=== PATIENT | female | born 1970 | race American Indian/Alaskan Native ===

== ENCOUNTER 2020-08-10 11:09 | Emergency (ER) | payer OTHER ==
[2020-08-10 11:16] VITALS: BP 118/83
--- NOTE | 2020-08-10 11:37 | Event Note ---
ED Screening Note ED Screening Note: states she has been having cough with mucus production states she began having lightheaded states she has right sided chest discomfort with coughing +diarrhea +subjective fever +chills no SOB no rhinorrhea no sore throat no ear pain no vomiting no diarrhea no sick contact no recent travel PMHx pre htn no allergies to meds non smoker LNMP: a few days ago This initial assessment/diagnostic orders/clinical plan/treatment(s) is/are subject to change based on patients health status, clinical progression and re- assessment by fellow clinical providers in the ED. Further treatment and workup at subsequent clinical providers discretion. Patient/guardian urged not to elope from the ED as their condition may be serious if not clinically assessed and managed. Initial orders include: labs, CXR
--- NOTE | 2020-08-10 11:42 | Emergency Department Report ---
- General Chief Complaint: Dizziness Stated Complaint: LIGHT HEADED Time Seen by Provider: 08/10/20 11:35 Source: patient Mode of arrival: Ambulatory Limitations: No Limitations - History of Present Illness Initial Comments: Patient is a 50-year-old female presents emergency room with complaints of cough with mucus production for 3 days. She has associate lightheaded, right sided chest discomfort only with coughing otherwise no chest pain, diarrhea, subjective fever, chills. She denies any shortness of breath, rhinorrhea, sore throat, ear pain, vomiting, diarrhea, pleuritic chest pain, exertional chest pain, dizziness, sensation of room spinning, near syncope, leg swelling. She denies any known sick contacts or recent travel.PMHx HTN, CHF she reports that her doctor took her off all of her medications since she has not been having any issues. no allergies to meds. non smoker. LNMP: a few days ago - Related Data Previous Rx's Medication Instructions Recorded Last Taken Type Furosemide [Lasix] 40 mg PO DAILY #30 tablet 07/10/13 Unknown Rx carvediloL [Coreg] 6.25 mg PO BID #60 tablet 07/10/13 Unknown Rx lisinopriL [Zestril TAB] 2.5 mg PO QDAY #30 tablet 07/10/13 Unknown Rx Acetaminophen/Codeine 1 tab PO Q6H PRN #10 tab 05/31/14 Unknown Rx [Acetaminophen-Codeine #3 TAB] Cyclobenzaprine [Flexeril 10mg] 10 mg PO TID PRN #14 tablet 05/31/14 Unknown Rx Ibuprofen [Motrin] 600 mg PO Q8H PRN #30 tablet 05/31/14 Unknown Rx Albuterol Sulfate [Proventil Hfa] 1 puff IH TID PRN #1 hfa.aer.ad 08/10/20 U nknown Rx Azithromycin [Zithromax TAB] 250 mg PO QDAY 5 Days #6 tablet 08/10/20 Unknown Rx Prednisone [predniSONE 10 mg 10 mg PO .TAPER #1 tab.ds.pk 08/10/20 Unknown Rx (6-Day Pack, 21 Tabs)] guaiFENesin ER [Mucinex ER] 600 mg PO Q12H #14 tablet.er 08/10/20 Unknown Rx Allergies Allergy/AdvReac Type Severity Reaction Status Date / Time No Known Allergies Allergy Verified 08/10/20 11:13 ED Review of Systems ROS: Stated complaint: LIGHT HEADED Other details as noted in HPI Comment: All other systems reviewed and negative ED Past Medical Hx - Past Medical History Hx Hypertension: Yes Hx Congestive Heart Failure: No Hx Diabetes: No Hx Asthma: No Hx COPD: No - Surgical History Past Surgical History?: No - Social History Smoking Status: Never Smoker Substance Use Type: None - Medications Home Medications: Home Medications Medication Instructions Recorded Confirmed Last Taken Type Furosemide [Lasix] 40 mg PO DAILY #30 tablet 07/10/13 Unknown Rx carvediloL [Coreg] 6.25 mg PO BID #60 tablet 07/10/13 Unknown Rx lisinopriL [Zestril TAB] 2.5 mg PO QDAY #30 tablet 07/10/13 Unknown Rx Acetaminophen/Codeine 1 tab PO Q6H PRN #10 tab 05/31/14 Unknown Rx [Acetaminophen-Codeine #3 TAB] Cyclobenzaprine [Flexeril 10mg] 10 mg PO TID PRN #14 tablet 05/31/14 Unknown Rx Ibuprofen [Motrin] 600 mg PO Q8H PRN #30 tablet 05/31/14 Unknown Rx Albuterol Sulfate [Proventil Hfa] 1 puff IH TID PRN #1 hfa.aer.ad 08/10/20 Unknown Rx Azithromycin [Zithromax TAB] 250 mg PO QDAY 5 Days #6 tablet 08/10/20 Unknown Rx Prednisone [predniSONE 10 mg 10 mg PO .TAPER #1 tab.ds.pk 08/10/20 Unknown Rx (6-Day Pack, 21 Tabs)] guaiFENesin ER [Mucinex ER] 600 mg PO Q12H #14 tablet.er 08/10/20 Unknown Rx ED Physical Exam - General Limitations: No Limitations General appearance: alert, in no apparent distress - Head Head exam: Present: atraumatic, normocephalic - Eye Eye exam: Present: normal appearance - ENT ENT exam: Present: mucous membranes moist - Respiratory Respiratory exam: Present: normal lung sounds bilaterally. Absent: respiratory distress, wheezes, rales, rhonchi, stridor, chest wall tenderness, accessory muscle use, decreased breath sounds, prolonged expiratory - Cardiovascular Cardiovascular Exam: Present: regular rate, normal rhythm, normal heart sounds. Absent: systolic murmur, diastolic murmur, rubs, gallop - Neurological Exam Neurological exam: Present: alert, oriented X3 - Psychiatric Psychiatric exam: Present: normal affect, normal mood - Skin Skin exam: Present: warm, dry, intact ED Course Vital Signs 08/10/20 11:15 Temperature 98.8 F Pulse Rate 91 H Respiratory 20 Rate Blood Pressure 118/83 O2 Sat by Pulse 94 Oximetry ED Medical Decision Making - Lab Data Result diagrams: 08/10/20 11:41 08/10/20 11:41 Lab Results 08/10/20 08/10/20 08/10/20 Range/Units 11:41 11:41 11:41 WBC 5.0 (4.5-11.0) K/mm3 RBC 4.93 (3.65-5.03) M/mm3 Hgb 13.3 (10.1-14.3) gm/dl Hct 40.6 (30.3-42.9) % MCV 82 (79-97) fl MCH 27 L (28-32) pg MCHC 33 (30-34) % RDW 19.6 H (13.2-15.2) % Plt Count 292 (140-440) K/mm3 Lymph % (Auto) 26.0 (13.4-35.0) % [place] % (Auto) 6.5 (0.0-7.3) % Eos % (Auto) 0.3 (0.0-4.3) % Baso % (Auto) 0.5 (0.0-1.8) % Lymph # (Auto) 1.3 (1.2-5.4) K/mm3 [place] # (Auto) 0.3 (0.0-0.8) K/mm3 Eos # (Auto) 0.0 (0.0-0.4) K/mm3 Baso # (Auto) 0.0 (0.0-0.1) K/mm3 Seg Neutrophils % 66.7 (40.0-70.0) % Seg Neutrophils # 3.4 (1.8-7.7) K/mm3 Sodium 137 (137-145) mmol/L Potassium 4.2 (3.6-5.0) mmol/L Chloride 102.1 (98-107) mmol/L Carbon Dioxide 21 L (22-30) mmol/L Anion Gap 18 mmol/L BUN 11 (7-17) mg/dL Creatinine 0.5 L (0.6-1.2) mg/dL Estimated GFR > 60 ml/min BUN/Creatinine Ratio 22 % Glucose 87 (65-100) mg/dL Calcium 7.9 L (8.4-10.2) mg/dL Total Bilirubin 0.60 (0.1-1.2) mg/dL AST 32 (5-40) units/L ALT 16 (7-56) units/L Alkaline Phosphatase 41 (35-129) units/L Total Protein 6.8 (6.3-8.2) g/dL Albumin 3.1 L (3.9-5) g/dL Albumin/Globulin Ratio 0.8 % HCG, Qual Negative (Negative) Urine Color (Yellow) Urine Turbidity (Clear) Urine pH (5.0-7.0) Ur Specific [place] (1.003-1.030) Urine Protein (Negative) mg/dL Urine Glucose (UA) (Negative) mg/dL Urine Ketones (Negative) mg/dL Urine Blood (Negative) Urine Nitrite (Negative) Urine Bilirubin (Negative) Urine Urobilinogen (<2.0) mg/dL Ur Leukocyte Esterase (Negative) Urine WBC (Auto) (0.0-6.0) /HPF Urine RBC (Auto) (0.0-6.0) /HPF U Epithel Cells (Auto) (0-13.0) /HPF Urine Bacteria (Auto) (Negative) /HPF Urine Mucus /HPF 08/10/20 Range/Units 11:56 WBC (4.5-11.0) K/mm3 RBC (3.65-5.03) M/mm3 Hgb (10.1-14.3) gm/dl Hct (30.3-42.9) % MCV (79-97) fl MCH (28-32) pg MCHC (30-34) % RDW (13.2-15.2) % Plt Count (140-440) K/mm3 Lymph % (Auto) (13.4-35.0) % [place] % (Auto) (0.0-7.3) % Eos % (Auto) (0.0-4.3) % Baso % (Auto) (0.0-1.8) % Lymph # (Auto) (1.2-5.4) K/mm3 [place] # (Auto) (0.0-0.8) K/mm3 Eos # (Auto) (0.0-0.4) K/mm3 Baso # (Auto) (0.0-0.1) K/mm3 Seg Neutrophils % (40.0-70.0) % Seg Neutrophils # (1.8-7.7) K/mm3 Sodium (137-145) mmol/L Potassium (3.6-5.0) mmol/L Chloride (98-107) mmol/L Carbon Dioxide (22-30) mmol/L Anion Gap mmol/L BUN (7-17) mg/dL Creatinine (0.6-1.2) mg/dL Estimated GFR ml/min BUN/Creatinine Ratio % Glucose (65-100) mg/dL Calcium (8.4-10.2) mg/dL Total Bilirubin (0.1-1.2) mg/dL AST (5-40) units/L ALT (7-56) units/L Alkaline Phosphatase (35-129) units/L Total Protein (6.3-8.2) g/dL Albumin (3.9-5) g/dL Albumin/Globulin Ratio % HCG, Qual (Negative) Urine Color Yellow (Yellow) Urine Turbidity Slightly-cloudy (Clear) Urine pH 5.0 (5.0-7.0) Ur Specific [place] 1.023 (1.003-1.030) Urine Protein 100 mg/dl (Negative) mg/dL Urine Glucose (UA) Neg (Negative) mg/dL Urine Ketones Tr (Negative) mg/dL Urine Blood Mod (Negative) Urine Nitrite Neg (Negative) Urine Bilirubin Neg (Negative) Urine Urobilinogen < 2.0 (<2.0) mg/dL Ur Leukocyte Esterase Neg (Negative) Urine WBC (Auto) 5.0 (0.0-6.0) /HPF Urine RBC (Auto) < 1.0 (0.0-6.0) /HPF U Epithel Cells (Auto) 6.0 (0-13.0) /HPF Urine Bacteria (Auto) 1+ (Negative) /HPF Urine Mucus 1+ /HPF - Radiology Data Radiology results: report reviewed Ordering Physician: JOEL PACE Date of Service: 08/10/20 Procedure(s): XR chest routine 2V Accession Number(s): [id number] cc: JOEL PACE Fluoro Time In Minutes: CHEST 2 VIEWS INDICATION / CLINICAL INFORMATION: cough with mucus production. COMPARISON: None available. FINDINGS: SUPPORT DEVICES: None. HEART / MEDIASTINUM: Cardiomegaly LUNGS / PLEURA: Mild patchy bilateral airspace disease No pneumothorax. ADDITIONAL FINDINGS: No significant additional findings. IMPRESSION: Cardiomegaly with mild patchy bilateral airspace disease Signer Name: Simone Hernandez MD FACR Signed: 08/10/2020 12:31 PM Workstation Name: [id number] Transcribed By: MS Dictated By: Simone Hernandez MD Electronically Authenticated By: Simone Hernandez MD Signed Date/Time: 08/10/20 1231 DD/ 1228 TD/TT: - Medical Decision Making Patient is a 50-year-old female presents emergency room with complaints of cough with mucus production for 3 days. She has associate lightheaded, right sided chest discomfort only with coughing otherwise no chest pain, diarrhea, subjective fever, chills. She denies any shortness of breath, rhinorrhea, sore throat, ear pain, vomiting, diarrhea, pleuritic chest pain, exertional chest pain, dizziness, sensation of room spinning, near syncope, leg swelling. She denies any known sick contacts or recent travel.PMHx HTN, CHF she reports that her doctor took her off all of her medications since she has not been having any issues. no allergies to meds. non smoker. LNMP: a few days ago. Labs are stable. UA without evidence of UTI. Chest x-ray: Cardiomegaly with mild patchy bilateral airspace disease. Symptoms could be related to COVID-19 pneumonia. Patient ambulated in the emergency department for 2 minutes and maintained oxygen saturation of 93% or better on room air. Discussed case with Dr. Camarillo, ER attending who agrees with discharge home with strict return precautions. Ad vised patient Please use medication as prescribed. Please increase your fluid intake over the next several days. May take Tylenol as needed for fever or body aches. Follow-up with a primary care doctor for reexamination. Return to emergency room immediately for any new or worsening symptoms including but not limited to difficulty breathing, shortness of breath, severe chest pain, unable to tolerate by mouth intake, etc. Please self quarantine for 10 days from the onset of your symptoms. Please do not go out in public. If you are around others at home please wear a mask. If you need to cough or sneeze please do so in a napkin and immediately throw it away and immediately wash your hands. Wash your hands frequently. Wipe everything down. Recommend for you to get COVID-19 testing, may have this done at primary care doctor, health department, [facility], etc Critical care attestation.: If time is entered above; I have spent that time in minutes in the direct care of this critically ill patient, excluding procedure time. ED Disposition Clinical Impression: Opacities of both lungs present on chest x-ray, Suspected COVID-19 virus infection Disposition: TO HOME OR SELFCARE Is pt being admited?: No Does the pt Need Aspirin: No Condition: Stable Instructions: COVID-19, Community-Acquired Pneumonia, Adult Additional Instructions: Please use medication as prescribed. Please increase your fluid intake over the next several days. May take Tylenol as needed for fever or body aches. Follow-up with a primary care doctor for reexamination. Return to emergency room immediately for any new or worsening symptoms including but not limited to difficulty breathing, shortness of breath, severe chest pain, unable to tolerate by mouth intake, etc. Please self quarantine for 10 days from the onset of your symptoms. Please do not go out in public. If you are around others at home please wear a mask. If you need to cough or sneeze please do so in a napkin and immediately throw it away and immediately wash your hands. Wash your hands frequently. Wipe everything down. Recommend for you to get COVID-19 testing, may have this done at primary care doctor, health department, [facility], etc Prescriptions: guaiFENesin ER [Mucinex ER] 600 mg PO Q12H #14 tablet.er Prednisone [predniSONE 10 mg (6-Day Pack, 21 Tabs)] 10 mg PO .TAPER #1 tab.ds.pk Albuterol Sulfate [Proventil Hfa] 1 puff IH TID PRN #1 hfa.aer.ad PRN Reason: wheezing/shortness of breath Azithromycin [Zithromax TAB] 250 mg PO QDAY 5 Days #6 tablet Referrals: [facility] [Provider Group] - 2-3 Days ARISTIDES PEDERSEN MD [Staff Physician] - 2-3 Days Forms: Work/School Release Form(ED) Time of Disposition: 13:27 Print Language: ANGOLAN
[2020-08-10 12:03] LABS: Basophils % (Auto) 0.5 % (0.0-1.8); Eosinophils % (Auto) 0.3 % (0.0-4.3); Hematocrit 40.6 % (30.3-42.9); Hemoglobin 13.3 gm/dl (10.1-14.3); Lymphocytes # (Auto) 1.3 K/mm3 (1.2-5.4); Mean Corpuscular HGB Conc 33 % (30-34); Mean Corpuscular Volume 82 fl (79-97); Monocytes # (Auto) 0.3 K/mm3 (0.0-0.8); Monocytes % (Auto) 6.5 % (0.0-7.3); Platelet Count 292 K/mm3 (140-440); Red Blood Count 4.93 M/mm3 (3.65-5.03); Red Cell Distribution Width 19.6 % (13.2-15.2)
[2020-08-10 12:17] LABS: Alanine Aminotransferase 16 units/L (7-56); Albumin 3.1 g/dL (3.9-5); Blood Urea Nitrogen 11 mg/dL (7-17); Calcium 7.9 mg/dL (8.4-10.2); Hemolysis Index 11
[2020-08-10 12:18] LABS: BUN/Creatinine Ratio 22
[2020-08-10 12:53] LABS: Bacteria,Urine 1+ /HPF (Negative); Bilirubin,Urine NEG (Negative); Blood,Urine MOD (Negative); Color,Urine Yellow (Yellow); Mucus,Urine 1+ /HPF; RBC,Urine < 1.0 /HPF (0.0-6.0); Urobilinogen,Urine < 2.0 mg/dL (<2.0)
--- NOTE | 2020-08-10 13:11 | XRay Report ---
CHEST 2 VIEWS INDICATION / CLINICAL INFORMATION: cough with mucus production. COMPARISON: None available. FINDINGS: SUPPORT DEVICES: None. HEART / MEDIASTINUM: Cardiomegaly LUNGS / PLEURA: Mild patchy bilateral airspace disease No pneumothorax. ADDITIONAL FINDINGS: No significant additional findings. IMPRESSION: Cardiomegaly with mild patchy bilateral airspace disease Signer Name: Simone Hernandez MD FACR Signed: 08/10/2020 12:31 PM Workstation Name: [id number]
== END 2020-08-10 13:41 | disposition home or self-care (01) ==
LOC: ED 11:09
DX: R91.8 Other nonspecific abnormal finding of lung field (principal); I10 Essential (primary) hypertension; Z79.899 Other long term (current) drug therapy; Z20.822 Contact with and (suspected) exposure to COVID-19
CPT/HCPCS: 36415; 71046; 80053; 81001; 84703; 85025

== ENCOUNTER 2020-11-01 01:20 | Emergency (ER) | payer SELFPAY ==
[2020-11-01 02:29] VITALS: BP 136/91
--- NOTE | 2020-11-01 03:26 | Emergency Department Report ---
ED Upper Extremity Inj HPI - General Chief Complaint: Extremity Injury, Lower Stated Complaint: FINGER INJURY Time Seen by Provider: 11/01/20 03:12 Source: patient Mode of arrival: Ambulatory Limitations: No Limitations - History of Present Illness Complaint: Injury to:: left, finger -: Sudden Other Extremity Injury: Fingers: Left (Fifth digit accidentally slammed in a door resulting in crush injury to the finger) Handedness: right Place: home Improves With: none Context: crush Associated Symptoms: denies: weakness, numbness, suspects foreign body, nausea/vomiting, heard/felt popping sensat - Related Data Previous Rx's Medication Instructions Recorded Last Taken Type Furosemide [Lasix] 40 mg PO DAILY #30 tablet 07/10/13 Unknown Rx carvediloL [Coreg] 6.25 mg PO BID #60 tablet 07/10/13 Unknown Rx lisinopriL [Zestril TAB] 2.5 mg PO QDAY #30 tablet 07/10/13 Unknown Rx Acetaminophen/Codeine 1 tab PO Q6H PRN #10 tab 05/31/14 Unknown Rx [Acetaminophen-Codeine #3 TAB] Cyclobenzaprine [Flexeril 10mg] 10 mg PO TID PRN #14 tablet 05/31/14 Unknown Rx Ibuprofen [Motrin] 600 mg PO Q8H PRN #30 tablet 05/31/14 Unknown Rx Albuterol Sulfate [Proventil Hfa] 1 puff IH TID PRN #1 hfa.aer.ad 08/10/20 Unknown Rx Azithromycin [Zithromax TAB] 250 mg PO QDAY 5 Days #6 tablet 08/10/20 Unknown Rx Prednisone [predniSONE 10 mg 10 mg PO .TAPER #1 tab.ds.pk 08/10/20 Unknown Rx (6-Day Pack, 21 Tabs)] guaiFENesin ER [Mucinex ER] 600 mg PO Q12H #14 tablet.er 08/10/20 Unknown Rx Allergies Allergy/AdvReac Type Severity Reaction Status Date / Time No Known Allergies Allergy Verified 08/10/20 11:13 ED Review of Systems ROS: Stated complaint: FINGER INJURY Other details as noted in HPI Comment: All other systems reviewed and negative ED Past Medical Hx - Past Medical History Previous Medical History?: No Hx Hypertension: Yes Hx Congestive Heart Failure: No Hx Diabetes: No Hx Asthma: No Hx COPD: No - Surgical History Past Surgical History?: No - Social History Smoking Status: Never Smoker Substance Use Type: None - Medications Home Medications: Home Medications Medication Instructions Recorded Confirmed Last Taken Type Furosemide [Lasix] 40 mg PO DAILY #30 tablet 07/10/13 Unknown Rx carvediloL [Coreg] 6.25 mg PO BID #60 tablet 07/10/13 Unknown Rx lisinopriL [Zestril TAB] 2.5 mg PO QDAY #30 tablet 07/10/13 Unknown Rx Acetaminophen/Codeine 1 tab PO Q6H PRN #10 tab 05/31/14 Unknown Rx [Acetaminophen-Codeine #3 TAB] Cyclobenzaprine [Flexeril 10mg] 10 mg PO TID PRN #14 tablet 05/31/14 Unknown Rx Ibuprofen [Motrin] 600 mg PO Q8H PRN #30 tablet 05/31/14 Unknown Rx Albuterol Sulfate [Proventil Hfa] 1 puff IH TID PRN #1 hfa.aer.ad 08/10/20 Unknown Rx Azithromycin [Zithromax TAB] 250 mg PO QDAY 5 Days #6 tablet 08/10/20 Unknown Rx Prednisone [predniSONE 10 mg 10 mg PO .TAPER #1 tab.ds.pk 08/10/20 Unknown Rx (6-Day Pack, 21 Tabs)] guaiFENesin ER [Mucinex ER] 600 mg PO Q12H #14 tablet.er 08/10/20 Unknown Rx ED Physical Exam - General Limitations: No Limitations General appearance: alert, in no apparent distress - Head Head exam: Present: atraumatic, normocephalic - Eye Eye exam: Present: normal appearance - ENT ENT exam: Present: mucous membranes moist - Neck Neck exam: Present: normal inspection - Respiratory Respiratory exam: Present: normal lung sounds bilaterally. Absent: respiratory distress - Cardiovascular Cardiovascular Exam: Present: regular rate, normal rhythm. Absent: systolic murmur, diastolic murmur, rubs, gallop - GI/Abdominal GI/Abdominal exam: Present: soft, normal bowel sounds - Extremities Exam Extremities exam: Present: normal inspection - Back Exam Back exam: Present: normal inspection - Neurological Exam Neurological exam: Present: alert, oriented X3 - Psychiatric Psychiatric exam: Present: normal affect, normal mood - Skin Skin exam: Present: warm, dry, intact, normal color. Absent: rash ED Course Vital Signs 11/01/20 11/01/20 02:28 05:20 Temperature 98.5 F Pulse Rate 88 87 Respiratory 18 17 Rate Blood Pressure 136/91 O2 Sat by Pulse 96 99 Oximetry Critical care attestation.: If time is entered above; I have spent that time in minutes in the direct care of this critically ill patient, excluding procedure time. ED Disposition Clinical Impression: Contusion, finger Disposition: DC-01 TO HOME OR SELFCARE Is pt being admited?: No Does the pt Need Aspirin: No Condition: Stable Instructions: How to Use Cold Therapy, [id number], Contusion, How to Use Cold Therapy Additional Instructions: Please utilize Tylenol and Motrin as needed for your finger discomfort Referrals: [facility] [Provider Group] - 3-5 Days
--- NOTE | 2020-11-01 03:39 | XRay Report ---
XR finger(s) 2+V LT INDICATION / CLINICAL INFORMATION: crush injuy 5th phalange. COMPARISON: None available. FINDINGS: No acute fracture. Normal alignment. Joint spaces are preserved. No destructive osseous lesion or s uspicious periosteal reaction. Impression: 1.No acute fracture. Signer Name: Eugenio Ann MD Signed: 11/01/2020 3:34 AM Workstation Name: [id number]
== END 2020-11-01 05:20 | disposition home or self-care (01) ==
LOC: ED 01:20
DX: S60.052A Contusion of left little finger without damage to nail, initial encounter (principal); I10 Essential (primary) hypertension; Z79.899 Other long term (current) drug therapy; W23.0XXA Caught, crushed, jammed, or pinched between moving objects, initial encounter; Y93.89 Activity, other specified; Y92.89 Other specified places as the place of occurrence of the external cause; Y99.8 Other external cause status
CPT/HCPCS: 99283

== ENCOUNTER 2021-07-05 10:22 | Emergency (ER) | payer OTHER ==
[2021-07-05 10:40] VITALS: BP 133/102
--- NOTE | 2021-07-05 12:07 | Event Note ---
ED Screening Note Date of service: 07/05/21 Time: 12:06 ED Screening Note: Over a week history of worsening shortness of breath especially on exertion along with abdominal bloating and swelling. She states that she has a history of "enlarged heart" but was taken off diuretics. This initial assessment/diagnostic orders/clinical plan/treatment(s) is/are subject to change based on patients health status, clinical progression and re- assessment by fellow clinical providers in the ED. Further treatment and workup at subsequent clinical providers discretion. Patient/guardian urged not to elope from the ED as their condition may be serious if not clinically assessed and managed. Initial orders include:
[2021-07-05] MEDS ORDERED: FUROSEMIDE 20 MG TAB PO ONE (12:39)
--- NOTE | 2021-07-05 12:40 | Emergency Department Report ---
ED Shortness of Breath HPI - General Chief Complaint: Dyspnea/Respdistress Stated Complaint: ESAU Time Seen by Provider: 07/05/21 12:28 Source: patient Mode of arrival: Ambulatory Limitations: No Limitations - History of Present Illness Initial Comments: Patient presents with a 4-day history of worsening dyspnea as well as bloating and fluid retention. There is a long history of fluid retention and pulmonary edema. Patient was taken off of her diuretic. She does not know why. She was only on Lasix 10 mg a day. Regardless, patient was doing well up until the medicine had stopped. 4 days ago she started developing the symptoms. She has no chest pain. There is no vomiting or diarrhea. She states that she just feels bloated and feels like she is retaining fluid. The shortness of breath is associated with exertion as well as position. She describes orthopnea. - Related Data Previous Rx's Medication Instructions Recorded Last Taken Type Furosemide [Lasix] 40 mg PO DAILY #30 tablet 07/10/13 Unknown Rx carvediloL [Coreg] 6.25 mg PO BID #60 tablet 07/10/13 Unknown Rx lisinopriL [Zestril TAB] 2.5 mg PO QDAY #30 tablet 07/10/13 Unknown Rx Albuterol Sulfate [Proventil Hfa] 1 puff IH TID PRN #1 hfa.aer.ad 08/10/20 Unknown Rx Furosemide [Lasix] 20 mg PO QDAY #30 tablet 07/05/21 Unknown Rx Potassium Chloride [K-Dur] 20 meq PO QDAY #30 tab 07/05/21 Unknown Rx Allergies Allergy/AdvReac Type Severity Reaction Status Date / Time No Known Allergies Allergy Verified 08/10/20 11:13 ED Review of Systems ROS: Stated complaint: ESAU Other details as noted in HPI Comment: All other systems reviewed and negative Constitutional: denies: fever Eyes: denies: vision change ENT: denies: throat pain Respiratory: see HPI Cardiovascular: denies: chest pain Endocrine: unexplained weight gain. denies: unexplained weight loss Gastrointestinal: denies: abdominal pain Genitourinary: denies: dysuria Musculoskeletal: denies: back pain Skin: denies: rash Neurological: denies: headache Hematological/Lymphatic: denies: easy bruising ED Past Medical Hx - Past Medical History Previous Medical History?: Yes Hx Hypertension: Yes Hx Congestive Heart Failure: No Hx Diabetes: No Hx Asthma: No Hx COPD: No - Surgical History Past Surgical History?: No - Family History Family history: hypertension - Social History Smoking Status: Never Smoker Substance Use Type: None - Medications Home Medications: Home Medications Medication Instructions Recorded Confirmed Last Taken Type Furosemide [Lasix] 40 mg PO DAILY #30 tablet 07/10/13 Unknown Rx carvediloL [Coreg] 6.25 mg PO BID #60 tablet 07/10/13 Unknown Rx lisinopriL [Zestril TAB] 2.5 mg PO QDAY #30 tablet 07/10/13 Unknown Rx Albuterol Sulfate [Proventil Hfa] 1 puff IH TID PRN #1 hfa.aer.ad 08/10/20 Unknown Rx Furosemide [Lasix] 20 mg PO QDAY #30 tablet 07/05/21 Unknown Rx Potassium Chloride [K-Dur] 20 meq PO QDAY #30 tab 07/05/21 Unknown Rx ED Physical Exam - General Limitations: No Limitations, Other (Pulse ox noted and normal) General appearance: alert, in no apparent distress, obese - Head Head exam: Present: atraumatic, normocephalic - Eye Eye exam: Present: normal appearance, PERRL, EOMI. Absent: scleral icterus - ENT ENT exam: Present: normal orophraynx, normal external ear exam - Neck Neck exam: Present: normal inspection. Absent: meningismus - Respiratory Respiratory exam: Present: decreased breath sounds (Bilateral). Absent: r espiratory distress - Cardiovascular Cardiovascular Exam: Present: regular rate, normal rhythm. Absent: JVD - GI/Abdominal GI/Abdominal exam: Present: soft. Absent: distended, tenderness - Extremities Exam Extremities exam: Present: normal capillary refill, pedal edema (3+ bilateral). Absent: calf tenderness - Back Exam Back exam: Absent: CVA tenderness (R), CVA tenderness (L) - Neurological Exam Neurological exam: Present: alert, oriented X3, CN II-XII intact, normal gait. Absent: motor sensory deficit - Psychiatric Psychiatric exam: Present: normal affect, normal mood - Skin Skin exam: Present: warm, dry ED Course Vital Signs 07/05/21 10:36 Temperature 98.2 F Pulse Rate 95 H Respiratory 16 Rate Blood Pressure 133/102 [Left] O2 Sat by Pulse 100 Oximetry - Reevaluation(s) Reevaluation #1: 03/09/22 12:40 Meds ordered. Old records noted. Reevaluation #2: 07/05/21 14:56 Labs were noted and the patient was discharged ED Medical Decision Making - Lab Data Result diagrams: 07/05/21 12:19 07/05/21 12:19 - Medical Decision Making Patient presents secondary to volume overload. Why she was taken off of the diuretic is unclear. This was restarted. She does not have overt evidence of heart strain or STEMI or ACS. She is not having chest pain. There was no clinical evidence of pneumonia. There is no cough or fever. Patient can be diuresed at home. She does not require admission. She is not hypoxic. Critical Care Time: No Critical care attestation.: If time is entered above; I have spent that time in minutes in the direct care of this critically ill patient, excluding procedure time. ED Disposition Clinical Impression: Anasarca Disposition: 01 HOME / SELF CARE / HOMELESS Is pt being admited?: No Condition: Stable Instructions: Heart Failure, Diagnosis, [id number] Additional Instructions: Elevate the feet. Do not eat salt. Follow-up with your regular doctor or referral doctor for recheck. Return for problems or concerns. Prescriptions: Potassium Chloride [K-Dur] 20 meq PO QDAY #30 tab Furosemide [Lasix] 20 mg PO QDAY #30 tablet Referrals: MAZIN SCHMIDT MD [Primary Care Provider] - 3-5 Days LANEY BRANTLEY MD [Staff Physician] - 3-5 Days
--- NOTE | 2021-07-05 12:40 | XRay Report ---
CHEST 2 VIEWS INDICATION / CLINICAL INFORMATION: chest pain. COMPARISON: 08/10/2020 FINDINGS: SUPPORT DEVICES: None. HEART / MEDIASTINUM: There is mild cardiomegaly. This is similar to the prior exam. LUNGS / PLEURA: No significant pulmonary or pleural abnormality. No pneumothorax. ADDITIONAL FINDINGS: No significant additional findings. IMPRESSION: 1. No acute findings. Stable mild cardiomegaly. Signer Name: Judah Arvizu MD Signed: 07/05/2021 12:35 PM Workstation Name: [email or web address]
[2021-07-05 12:41] LABS: Hematocrit 39.7 % (30.3-42.9); Hemoglobin 12.5 gm/dl (10.1-14.3); Mean Corpuscular HGB Conc 31 % (30-34); Mean Corpuscular Volume 86 fl (79-97); Platelet Count 363 K/mm3 (140-440); Red Blood Count 4.63 M/mm3 (3.65-5.03); Red Cell Distribution Width 18.6 % (13.2-15.2)
[2021-07-05 13:09] LABS: Alanine Aminotransferase 33 units/L (7-56); Albumin 3.7 g/dL (3.9-5); Blood Urea Nitrogen 17 mg/dL (7-17); Calcium 9.1 mg/dL (8.4-10.2); Hemolysis Index 9
[2021-07-05 13:11] LABS: BUN/Creatinine Ratio 34
--- NOTE | 2021-07-07 09:11 | Electrocardiograph Report ---
[facility] Test Date: 2021-07-05 Test Time: 12:14:36 Pat Name: NSEHA KILLIAN Department: Room: Gender: F Pulp Mixer: FATOU : 1970 Requested By: MARCELO DONOVNA Order Number: [id number] Reading MD: Juaquin Rubio Measurements Intervals [place] Rate: 96 P: 46 CA: 167 QRS: 67 QRSD: 97 T: 38 QT: 388 QTc: 483 Interpretive Statements Sinus rhythm Ventricular premature complex Left atrial enlargement nonspecific st-t No previous ECG available for comparison Electronically Signed On 07-07-2021 9:10:28 EST by Juaquin Rubio
== END 2021-07-05 15:28 | disposition home or self-care (01) ==
LOC: ED 10:22
DX: R60.1 Generalized edema (principal); I10 Essential (primary) hypertension; R06.02 Shortness of breath
CPT/HCPCS: 36415; 71046; 80053; 83880; 84484; 85027; 93005; 99284

== ENCOUNTER 2021-10-26 10:31 | Inpatient (IN) | payer OTHER ==
[2021-10-26] MEDS ORDERED: dilTIAZem 25 MG/5 ML INJ IV ONE ×2 (10:45→22:00)
[2021-10-26] MEDS ORDERED: dilTIAZem/D5W 100 MG/100 ML BAG IV SCH (11:00)
--- NOTE | 2021-10-26 11:41 | Emergency Department Report ---
ED Palpitations HPI - General Chief Complaint: Arrhythmia/Palpitations Stated Complaint: RAPID HEART RATE Time Seen by Provider: 10/26/21 10:48 Source: EMS Mode of arrival: Stretcher Limitations: No Limitations - History of Present Illness Initial Comments: Patient is a 51-year-old female with history of CHF sent from primary care office for evaluation of A. fib with RVR. She denies past history of arrhythmia. Denies shortness of breath or chest pain. - Related Data Previous Rx's Medication Instructions Recorded Last Taken Type Furosemide [Lasix] 40 mg PO DAILY #30 tablet 07/10/13 Unknown Rx carvediloL [Coreg] 6.25 mg PO BID #60 tablet 07/10/13 Unknown Rx lisinopriL [Zestril TAB] 2.5 mg PO QDAY #30 tablet 07/10/13 Unknown Rx Albuterol Sulfate [Proventil Hfa] 1 puff IH TID PRN #1 hfa.aer.ad 08/10/20 Unknown Rx Furosemide [Lasix] 20 mg PO QDAY #30 tablet 07/05/21 Unknown Rx Potassium Chloride [K-Dur] 20 meq PO QDAY #30 tab 07/05/21 Unknown Rx Allergies Allergy/AdvReac Type Severity Reaction Status Date / Time No Known Allergies Allergy Verified 10/26/21 10:54 ED Review of Systems ROS: Stated complaint: RAPID HEART RATE Other details as noted in HPI Constitutional: denies: chills, fever Respiratory: no symptoms reported Cardiovascular: edema. denies: chest pain, palpitations Gastrointestinal: denies: abdominal pain, nausea, diarrhea Musculoskeletal: denies: back pain, joint swelling, arthralgia Skin: denies: rash, lesions Neurological: denies: headache, weakness, paresthesias Psychiatric: denies: anxiety, depression ED Past Medical Hx - Past Medical History Hx Hypertension: Yes Hx Congestive Heart Failure: No Hx Diabetes: No Hx Asthma: No Hx COPD: No - Social History Smoking Status: Never Smoker Substance Use Type: None - Medications Home Medications: Home Medications Medication Instructions Recorded Confirmed Last Taken Type Furosemide [Lasix] 40 mg PO DAILY #30 tablet 14 10/27/21 Unknown Rx carvediloL [Coreg] 6.25 mg PO BID #60 tablet 07/10/13 Unknown Rx lisinopriL [Zestril TAB] 2.5 mg PO QDAY #30 tablet 07/10/13 Unknown Rx Albuterol Sulfate [Proventil Hfa] 1 puff IH TID PRN #1 hfa.aer.ad 08/10/20 Unknown Rx Furosemide [Lasix] 20 mg PO QDAY #30 tablet 07/05/21 Unknown Rx Potassium Chloride [K-Dur] 20 meq PO QDAY #30 tab 07/05/21 10/27/21 Unknown Rx ED Physical Exam - General Limitations: No Limitations General appearance: alert, in no apparent distress - Head Head exam: Present: atraumatic, normocephalic - Neck Neck exam: Present: normal inspection - Respiratory Respiratory exam: Present: normal lung sounds bilaterally. Absent: respiratory distress - Cardiovascular Cardiovascular Exam: Present: tachycardia, irregular rhythm - GI/Abdominal GI/Abdominal exam: Present: soft. Absent: distended, tenderness - Rectal Rectal exam: Present: deferred - Neurological Exam Neurological exam: Present: alert, oriented X3 - Psychiatric Psychiatric exam: Present: normal affect, normal mood - Skin Skin exam: Present: warm, dry, intact, normal color ED Course Vital Signs 10/26/21 10/26/21 10/26/21 10:34 10:39 10:46 Temperature 98.1 F Pulse Rate 127 H 181 H 169 H Respiratory 18 19 28 H Rate Blood Pressure 143/123 Blood Pressure 151/93 [Left] O2 Sat by Pulse 89 99 Oximetry 10/26/21 10/26/21 10/26/21 10:50 10:51 10:52 Temperature 98.0 F Pulse Rate 174 H 168 H 157 H Respiratory 23 Rate Blood Pressure 143/123 Blood Pressure 145/126 [Left] O2 Sat by Pulse 100 Oximetry 10/26/21 10/26/21 10/26/21 11:00 11:16 11:33 Temperature Pulse Rate 162 H 173 H 163 H Respiratory 23 18 Rate Blood Pressure 111/78 111/78 113/51 Blood Pressure [Left] O2 Sat by Pulse 100 100 Oximetry 10/26/21 10/26/21 10/26/21 15:13 16:20 16:30 Temperature Pulse Rate 153 H 136 H Respiratory 19 18 Rate Blood Pressure 105/90 105/90 Blood Pressure [Left] O2 Sat by Pulse 100 100 Oximetry 10/26/21 10/26/21 10/26/21 16:40 16:50 17:00 Temperature Pulse Rate 148 H 149 H 146 H Respiratory 27 H 25 H 15 Rate Blood Pressure 115/95 128/85 128/85 Blood Pressure [Left] O2 Sat by Pulse 100 100 100 Oximetry 10/26/21 10/26/21 10/26/21 17:10 17:20 17:30 Temperature Pulse Rate 153 H 158 H 160 H Respiratory 16 19 22 Rate Blood Pressure 149/121 149/121 149/121 Blood Pressure [Left] O2 Sat by Pulse 100 99 99 Oximetry 10/26/21 10/26/21 10/26/21 17:40 17:50 18:00 Temperature Pulse Rate 154 H 139 H 165 H Respiratory 28 H 15 16 Rate Blood Pressure 112/95 107/83 107/83 Blood Pressure [Left] O2 Sat by Pulse 100 99 100 Oximetry 10/26/21 10/26/21 10/26/21 18:10 18:20 18:30 Temperature Pulse Rate 156 H 159 H 144 H Respiratory 12 32 H 19 Rate Blood Pressure 126/105 118/59 118/59 Blood Pressure [Left] O2 Sat by Pulse 100 100 100 Oximetry 10/26/21 10/26/21 10/26/21 18:40 18:50 19:00 Temperature Pulse Rate 162 H 151 H 160 H Respiratory 17 21 18 Rate Blood Pressure 118/59 118/59 143/91 Blood Pressure [Left] O2 Sat by Pulse 100 100 100 Oximetry 10/26/21 10/26/21 10/26/21 19:10 19:12 19:20 Temperature Pulse Rate 167 H 147 H 156 H Respiratory 17 18 18 Rate Blood Pressure 106/77 106/77 Blood Pressure 106/77 [Left] O2 Sat by Pulse 99 100 Oximetry 10/26/21 10/26/21 10/26/21 19:30 19:40 19:50 Temperature Pulse Rate 164 H Respiratory 18 22 18 Rate Blood Pressure 106/77 131/103 83/60 Blood Pressure [Left] O2 Sat by Pulse 100 99 Oximetry 10/26/21 10/26/21 10/26/21 20:00 20:10 20:20 Temperature Pulse Rate 146 H 164 H Respiratory 21 24 18 Rate Blood Pressure 83/60 92/77 92/77 Blood Pressure [Left] O2 Sat by Pulse 99 100 100 Oximetry 10/26/21 10/26/21 10/26/21 20:30 20:36 20:40 Temperature Pulse Rate 153 H 143 H 140 H Respiratory 24 28 H 25 H Rate Blood Pressure 92/77 121/94 Blood Pressure 121/94 [Left] O2 Sat by Pulse 92 95 Oximetry 10/26/21 10/26/21 10/26/21 20:50 21:00 21:10 Temperature Pulse Rate 151 H 152 H 161 H Respiratory 22 16 24 Rate Blood Pressure 126/79 126/79 114/95 Blood Pressure [Left] O2 Sat by Pulse 100 95 100 Oximetry 10/26/21 10/26/21 10/26/21 21:20 21:30 21:40 Temperature Pulse Rate 142 H 133 H 159 H Respiratory 15 25 H 17 Rate Blood Pressure 99/64 99/64 99/64 Blood Pressure [Left] O2 Sat by Pulse 97 100 Oximetry 10/26/21 10/26/21 10/26/21 21:50 22:00 22:10 Temperature Pulse Rate 164 H 156 H Respiratory 26 H 28 H 26 H Rate Blood Pressure 99/64 115/98 102/79 Blood Pressure [Left] O2 Sat by Pulse 100 84 Oximetry 10/26/21 10/26/21 10/26/21 22:12 22:20 22:30 Temperature Pulse Rate 158 H 128 H 154 H Respiratory 20 26 H Rate Blood Pressure 102/79 111/87 111/87 Blood Pressure [Left] O2 Sat by Pulse 100 Oximetry 10/26/21 10/26/21 10/26/21 22:33 22:40 22:42 Temperature Pulse Rate 141 H 133 H 127 H Respiratory 22 25 H Rate Blood Pressure 111/87 103/83 Blood Pressure 103/83 [Left] O2 Sat by Pulse 95 Oximetry 10/26/21 10/26/21 10/26/21 22:50 23:00 23:10 Temperature Pulse Rate 131 H 137 H 117 H Respiratory 26 H 17 21 Rate Blood Pressure 103/83 111/87 111/87 Blood Pressure [Left] O2 Sat by Pulse 80 L Oximetry 10/26/21 10/26/21 10/26/21 23:20 23:30 23:31 Temperature Pulse Rate 133 H 103 H Respiratory 24 Rate Blood Pressure 111/87 103/83 Blood Pressure [Left] O2 Sat by Pulse 98 95 100 Oximetry 10/26/21 10/26/21 10/27/21 23:40 23:50 00:00 Temperature Pulse Rate 123 H 117 H 129 H Respiratory 11 L 24 38 H Rate Blood Pressure 103/83 42/19 Blood Pressure [Left] O2 Sat by Pulse 100 Oximetry 10/27/21 10/27/21 10/27/21 00:10 00:20 00:27 Temperature 98.2 F Pulse Rate 106 H 102 H 125 H Respiratory 11 L 14 20 Rate Blood Pressure 42/19 42/19 Blood Pressure 133/106 [Left] O2 Sat by Pulse 95 Oximetry 10/27/21 00:30 Temperature Pulse Rate 111 H Respiratory 16 Rate Blood Pressure 42/19 Blood Pressure [Left] O2 Sat by Pulse Oximetry ED Medical Decision Making - Lab Data Result diagrams: 10/27/21 04:33 10/27/21 04:33 - EKG Data -: EKG Interpreted by Me (Atrial fibrillation with RVR with rate of 178 bpm) - Medical Decision Making EKG shows A. fib with RVR. Patient given 10 mg of IV diltiazem with no response. Started on diltiazem infusion however tachycardia was still refractory. She was switched to amiodarone drip. Cardiology consulted. Will admit to ICU. Critical care attestation.: If time is entered above; I have spent that time in minutes in the direct care of this critically ill patient, excluding procedure time. ED Disposition Clinical Impression: Atrial fibrillation with RVR Disposition: ADMITTED INPATIENT Is pt being admited?: Yes Condition: Stable
[2021-10-26 11:52] LABS: Basophils # (Auto) 0.2 K/mm3 (0.0-0.1); Basophils % (Auto) 2.5 % (0.0-1.8); Eosinophils # (Auto) 0.1 K/mm3 (0.0-0.4); Hematocrit 40.9 % (30.3-42.9); Lymphocytes % (Auto) 25.6 % (13.4-35.0); Mean Corpuscular HGB Conc 32 % (30-34); Mean Corpuscular Volume 82 fl (79-97); Monocytes # (Auto) 0.7 K/mm3 (0.0-0.8); Monocytes % (Auto) 8.7 % (0.0-7.3); Platelet Count 260 K/mm3 (140-440); Red Blood Count 4.99 M/mm3 (3.65-5.03); Red Cell Distribution Width 19.4 % (13.2-15.2)
[2021-10-26 12:03] LABS: Alanine Aminotransferase 146 units/L (7-56); Albumin 3.9 g/dL (3.9-5); BUN/Creatinine Ratio 44; Blood Urea Nitrogen 40 mg/dL (7-17); Calcium 9.4 mg/dL (8.4-10.2); Hemolysis Index 20
[2021-10-26] MEDS ORDERED: AMIODARONE 150 MG/3 ML INJ IV ONE (13:36)
[2021-10-26] MEDS ORDERED: AMIODARONE 900 MG in DEXTROSE 5% IN WATER 482 ML IV SCH (14:00)
[2021-10-26] MEDS: AMIODARONE 360 MG in DEXTROSE 5% IN WATER 192.8 ML IV SCH (14:27)
--- NOTE | 2021-10-26 20:56 | History and Physical Report ---
History of Present Illness Date of examination: 10/26/21 Date of admission: 10/26/2021 Chief complaint: Palpitations since a.m. History of present illness: Patient is a 51-year-old female with history of CHF and hypertension sent from primary care office for evaluation of A. fib with RVR. She denies past history of arrhythmia. Denies shortness of breath or chest pain. Has been palpitations no diaphoresis. No exacerbating or relieving factors. No orthopnea. - Past Medical History --Hypertension: Yes -Past surgical history --none Family history Htn - Social History --Smoking Status: Never Smoker --Substance Use Type: None - Medications --Home Medications: Home Medications Medication Instructions Recorded Confirmed Last Taken Type Furosemide [Lasix] 40 mg PO DAILY #30 tablet 07/10/13 Unknown Rx carvediloL [Coreg] 6.25 mg PO BID #60 tablet 07/10/13 Unknown Rx lisinopriL [Zestril TAB] 2.5 mg PO QDAY #30 tablet 07/10/13 Unknown Rx Albuterol Sulfate [Proventil Hfa] 1 puff IH TID PRN #1 hfa.aer.ad 08/10/20 Unknown Rx Furosemide [Lasix] 20 mg PO QDAY #30 tablet 07/05/21 Unknown Rx Potassium Chloride [K-Dur] 20 meq PO QDAY #30 tab 07/05/21 Unknown Rx Review of Systems ROS: Stated complaint: RAPID HEART RATE Other details as noted in HPI Constitutional: denies: chills, fever Respiratory: no symptoms reported Cardiovascular: edema. denies: chest pain, palpitations Gastrointestinal: denies: abdominal pain, nausea, diarrhea Musculoskeletal: denies: back pain, joint swelling, arthralgia Skin: denies: rash, lesions Neurological: denies: headache, weakness, paresthesias Psychiatric: denies: anxiety, depression Medications and Allergies Allergies Allergy/AdvReac Type Severity Reaction Status Date / Time No Known Allergies Allergy Verified 10/26/21 10:54 Home Medications Medication Instructions Recorded Confirmed Last Taken Type Furosemide [Lasix] 40 mg PO DAILY #30 tablet 07/10/13 Unknown Rx carvediloL [Coreg] 6.25 mg PO BID #60 tablet 07/10/13 Unknown Rx lisinopriL [Zestril TAB] 2.5 mg PO QDAY #30 tablet 07/10/13 Unknown Rx Albuterol Sulfate [Proventil Hfa] 1 puff IH TID PRN #1 hfa.aer.ad 08/10/20 Unknown Rx Furosemide [Lasix] 20 mg PO QDAY #30 tablet 07/05/21 Unknown Rx Potassium Chloride [K-Dur] 20 meq PO QDAY #30 tab 07/05/21 Unknown Rx Active Meds: Active Medications Amiodarone HCl 360 mg/ (Dextrose) 200 mls @ 33.333 mls/hr IV DIRECT HENNY; Protocol Last Titration: 10/26/21 14:59 Dose: 1 mg/min, 33.333 mls/hr Exam - Constitutional Vitals: Temp Pulse Resp BP Pulse Ox 98.0 F 143 H 28 H 121/94 100 10/26/21 10:51 10/26/21 20:36 10/26/21 20:36 10/26/21 20:36 10/26/21 19:12 General appearance: Present: no acute distress, well-nourished - EENT Eyes: Present: PERRL ENT: hearing intact, clear oral mucosa - Neck Neck: Present: supple, normal ROM - Respiratory Respiratory effort: normal Respiratory: bilateral: CTA - Cardiovascular Heart rate: 140 Rhythm: irregularly irregular Heart Sounds: Present: S1 & S2. Absent: rub, click - Extremities Extremities: no ischemia, pulses intact, pulses symmetrical, No edema Peripheral Pulses: within normal limits - Abdominal General gastrointestinal: Present: soft, non-tender, non-distended, normal bowel sounds Female genitourinary: Present: normal - Integumentary Integumentary: Present: clear, warm, dry - Musculoskeletal Musculoskeletal: gait normal, strength equal bilaterally - Psychiatric Psychiatric: appropriate mood/affect, intact judgment & insight - Neurologic Neurologic: CNII-XII intact, moves all extremities - Allied Health Allied health notes reviewed: nursing, case management HEART Score - HEART Score History: Moderately suspicious EKG: Non-specific Risk factors: 1-2 risk factors Troponin: 1-3x normal limit - Critical Actions Critical Actions: 4-6 pts:12-16.6% risk of adverse cardiac event. Should be admitted Results - Labs CBC & Chem 7: 10/27/21 04:33 10/27/21 04:33 Labs: Laboratory Last Values WBC 7.6 K/mm3 (4.5-11.0) 10/26/21 10:59 RBC 4.99 M/mm3 (3.65-5.03) 10/26/21 10:59 Hgb 13.0 gm/dl (10.1-14.3) 10/26/21 10:59 Hct 40.9 % (30.3-42.9) 10/26/21 10:59 MCV 82 fl (79-97) 10/26/21 10:59 MCH 26 pg (28-32) L 10/26/21 10:59 MCHC 32 % (30-34) 10/26/21 10:59 RDW 19.4 % (13.2-15.2) H 10/26/21 10:59 Plt Count 260 K/mm3 (140-440) 10/26/21 10:59 Lymph % (Auto) 25.6 % (13.4-35.0) 10/26/21 10:59 Pershing % (Auto) 8.7 % (0.0-7.3) H 10/26/21 10:59 Eos % (Auto) 1.0 % (0.0-4.3) 10/26/21 10:59 Baso % (Auto) 2.5 % (0.0-1.8) H 10/26/21 10:59 Lymph # (Auto) 2.0 K/mm3 (1.2-5.4) 10/26/21 10:59 Pershing # (Auto) 0.7 K/mm3 (0.0-0.8) 10/26/21 10:59 Eos # (Auto) 0.1 K/mm3 (0.0-0.4) 10/26/21 10:59 Baso # (Auto) 0.2 K/mm3 (0.0-0.1) H 10/26/21 10:59 Seg Neutrophils % 62.2 % (40.0-70.0) 10/26/21 10:59 Seg Neutrophils # 4.8 K/mm3 (1.8-7.7) 10/26/21 10:59 Sodium 136 mmol/L (137-145) L 10/26/21 10:59 Potassium 3.6 mmol/L (3.6-5.0) 10/26/21 10:59 Chloride 100.4 mmol/L (98-107) 10/26/21 10:59 Carbon Dioxide 19 mmol/L (22-30) L 10/26/21 10:59 Anion Gap 20 mmol/L 10/26/21 10:59 BUN 40 mg/dL (7-17) H 10/26/21 10:59 Creatinine 0.9 mg/dL (0.6-1.2) 10/26/21 10:59 Estimated GFR > 60 ml/min 10/26/21 10:59 BUN/Creatinine Ratio 44 % 10/26/21 10:59 Glucose 108 mg/dL (65-100) H 10/26/21 10:59 Calcium 9.4 mg/dL (8.4-10.2) 10/26/21 10:59 Magnesium 1.90 mg/dL (1.7-2.3) 10/26/21 10:59 Total Bilirubin 1.10 mg/dL (0.1-1.2) 10/26/21 10:59 AST 116 units/L (5-40) H 10/26/21 10:59 ALT 146 units/L (7-56) H 10/26/21 10:59 Alkaline Phosphatase 93 units/L (35-129) 10/26/21 10:59 Total Protein 6.7 g/dL (6.3-8.2) 10/26/21 10:59 Albumin 3.9 g/dL (3.9-5) 10/26/21 10:59 Albumin/Globulin Ratio 1.4 % 10/26/21 10:59 Short CBC 10/26/21 Range/Units 10:59 WBC 7.6 (4.5-11.0) K/mm3 Hgb 13.0 (10.1-14.3) gm/dl Hct 40.9 (30.3-42.9) % Plt Count 260 (140-440) K/mm3 BMP 10/26/21 10:59 Sodium 136 L Potassium 3.6 Chloride 100.4 Carbon Dioxide 19 L BUN 40 H Creatinine 0.9 Glucose 108 H Calcium 9.4 Liver Function 10/26/21 Range/Units 10:59 Total Bilirubin 1.10 (0.1-1.2) mg/dL AST 116 H (5-40) units/L ALT 146 H (7-56) units/L Alkaline Phosphatase 93 (35-129) units/L Albumin 3.9 (3.9-5) g/dL Short CBC 10/26/21 10/27/21 Range/Units 10:59 04:33 WBC 7.6 11.5 H (4.5-11.0) K/mm3 Hgb 13.0 13.0 (10.1-14.3) gm/dl Hct 40.9 40.4 (30.3-42.9) % Plt Count 260 250 (140-440) K/mm3 BMP 10/26/21 10/27/21 10:59 04:33 Sodium 136 L 136 L Potassium 3.6 5.1 H D Chloride 100.4 103.0 Carbon Dioxide 19 L 10 L D BUN 40 H 52 H Creatinine 0.9 1.4 H D Glucose 108 H 81 Calcium 9.4 8.7 Liver Function 10/26/21 10/27/21 Range/Units 10:59 04:33 Total Bilirubin 1.10 2.30 H (0.1-1.2) mg/dL AST 116 H 156 H (5-40) units/L ALT 146 H 167 H (7-56) units/L Alkaline Phosphatase 93 Not Reportable (35-129) units/L Albumin 3.9 3.3 L (3.9-5) g/dL - Imaging and Cardiology EKG: report reviewed (Christiana webb with RVR) Assessment and Plan Assessment and plan: Critical care statement The high probability OF a clinically significant sudden or life-threatening deterioration of the cardiorespiratory system and endocrine system required my full and direct attention, intervention and postoperative management. The aggregate critical care time was 32 minutes. The time is in addition to time spent performing reported procedures but includes the followin: Data review and interpretation 2: Patient assessment and monitoring of vital signs 3: Documentation 4:: Medication orders and management Advance Directives: Yes (Full code) VTE prophylaxis?: Chemical Plan of care discussed with patient/family: Yes - Patient Problems (1) Atrial fibrillation with RVR Current Visit: No Status: Acute Plan to address problem: Patient initiated on IV amiodarone Lopressor IV was given x2 Rate was not getting controlled Patient was started on Lopressor 50 mg every 12 hours Carvedilol was discontinued Diltiazem drip to be added if the rate does not come down Patient admitted to ICU because of the persistent rapid ventricular rate Cardiology and proj mgr consult requested (2) Acute systolic CHF (congestive heart failure) Current Visit: No Status: Chronic Plan to address problem: Continue Lasix Echocardiogram was requested for ejection fraction, wall motion abnormalities and valve function (3) HTN (hypertension), benign Current Visit: No Status: Chronic Plan to address problem: Continue antihypertensives Carvedilol was stopped and Lopressor was started Diltiazem to be added if necessary Patient has CHF hence oral diltiazem was not started (4) DVT prophylaxis Current Visit: No Status: Acute Plan to address problem: On anticoagulation GI prophylaxis (5) Advance care planning Current Visit: Yes Status: Acute Plan to address problem: Diagnosis prognosis and care plan was discussed
[2021-10-26] MEDS ORDERED: oxyCODONE /ACETAMINOPHEN 5-325MG TAB PO PRN (20:57)
[2021-10-26] MEDS ORDERED: MORPHINE 2 MG/1 ML INJ IV PRN (20:57)
[2021-10-26] MEDS ORDERED: ACETAMINOPHEN 325 MG TAB PO PRN (20:57)
[2021-10-26] MEDS ORDERED: METOCLOPRAMIDE 10 MG/2 ML INJ IV PRN (20:57)
[2021-10-26] MEDS ORDERED: ALBUTEROL 8.5 GM MDI INHALATION IH PRN (20:59)
[2021-10-26] MEDS ORDERED: FUROSEMIDE 40 MG TAB PO SCH (21:00)
[2021-10-26] MEDS ORDERED: POTASSIUM CHLORIDE ER 20 MEQ TAB PO SCH (21:00)
[2021-10-26] MEDS ORDERED: LISINOPRIL 5 MG TAB PO SCH (21:00)
[2021-10-26] MEDS ORDERED: ALBUTEROL 2.5 MG/3 ML NEBU IH PRN (21:07)
[2021-10-26] MEDS ORDERED: METOPROLOL TARTRATE 5 MG/5 ML INJ IV ONE (21:42)
[2021-10-26] MEDS ORDERED: carvediloL 6.25 MG TAB PO SCH (22:00)
[2021-10-26] MEDS ORDERED: FAMOTIDINE 20 MG TAB PO SCH (22:00)
[2021-10-26] MEDS ORDERED: METOPROLOL TARTRATE 50 MG TAB PO SCH (22:15)
[2021-10-26] MEDS ORDERED: dilTIAZem 50 MG/10 ML INJ IV ONE (22:30)
[2021-10-27] MEDS ORDERED: SODIUM CHLORIDE 0.9% 1000 ML 1,000 ML ONE (01:26)
[2021-10-27] MEDS ORDERED: SODIUM CHLORIDE 0.9% 1000 ML 1,000 ML IV ONE (01:30)
[2021-10-27 05:22] LABS: Basophils % (Auto) 0.1 % (0.0-1.8); Hematocrit 40.4 % (30.3-42.9); Lymphocytes # (Auto) 1.8 K/mm3 (1.2-5.4); Mean Corpuscular HGB Conc 32 % (30-34); Mean Corpuscular Volume 82 fl (79-97); Monocytes # (Auto) 0.7 K/mm3 (0.0-0.8); Monocytes % (Auto) 5.8 % (0.0-7.3); Platelet Count 250 K/mm3 (140-440); Red Blood Count 4.91 M/mm3 (3.65-5.03); Red Cell Distribution Width 19.4 % (13.2-15.2)
[2021-10-27 05:42] LABS: Alanine Aminotransferase 167 units/L (7-56); Albumin 3.3 g/dL (3.9-5); BUN/Creatinine Ratio 37; Blood Urea Nitrogen 52 mg/dL (7-17); Calcium 8.7 mg/dL (8.4-10.2); Hemolysis Index 16
[2021-10-27] MEDS: ONDANSETRON 4 MG/2 ML INJ IV PRN (07:54)
[2021-10-27] MEDS: AMIODARONE 360 MG in DEXTROSE 5% IN WATER 192.8 ML IV SCH (08:10)
--- NOTE | 2021-10-27 08:10 | Progress Note ---
Assessment and Plan Assessment and plan: History of present illness: Patient is a 51-year-old female with history of CHF and hypertension sent from primary care office for evaluation of A. fib with RVR. She denies past history of arrhythmia. Denies shortness of breath or chest pain. Has been palpitations no diaphoresis. No exacerbating or relieving factors. No orthopnea. Hospital Course: 10/27: Severe dilated cardiomyopathy with EF 15%. Started on IV milrinone and IV diuretics. Abd US ordered to evaluate abdominal ascites. Patient to continue amiodorone IV for afib tx. Assessment and Plan: #Atrial fibrillation with rapid ventricular response -c/o palpitations. - ekg: afib rvr, ventricular rate: 178 bpm in ER - new onset. - amiodorone IV currently - started on meteprolol, digoxin for rate control. - started apixiaban for AC, chads > 2. -cardiology consultation #Acute systolic heart failure -ECHO shows dilated CMP, EF 15%. - IV diuretics, IV milrinone. - GDMT: metoprolol, aldactone -cardiology following #Acute kidney injury - 0.9 on admission, inc to 1.4 - hold francisca-i and lasix at this time - gentle IVF 500 cc at 75. #Hyperkalemia - K=5.1 - d/c K supplement at this time. #Hypertension - metoprolol only for now - patient hypotensive overnight #Morbid Obesity - BMI - Counseled patient on the importance of weight loss, incorporating exercise, and dietary changes (lean meats, fresh fruits and vegetables, and water intake). Patient expresses understanding. - Time: +15 min #Preventative health care - preventative health counseling regarding management of life stressors, medication compliance and overall effect of chronic medical conditions on overall health. Encourage patient to follow up closely with with OP providers +30 minutes. The high probability of a clinically significant, sudden or life threatening deterioration of the [multi] system(s) required my full and direct attention, intervention and personal management. The aggregate critical care time was [60] minutes. This time is in addition to time spent performing reported procedures but includes the following: [x] Data Review and interpretation [x] Patient assessment and monitoring of vital signs [x] Documentation [x] Medication orders and management History Interval history: no acute complaints. tachy on monitor. States she hasn't seen striker off in 8 yrs. Hospitalist Physical - Physical exam Narrative exam: Physical Exam: VITAL SIGNS: Reviewed. GENERAL: The patient appears normally developed, Vital signs as documented. HEAD: No signs of head trauma. EYES: Pupils are equal. Extraocular motions intact. EARS: Hearing grossly intact. MOUTH: Oropharynx is normal. NECK: No adenopathy, no JVD. CHEST: Chest with clear breath sounds bilaterally. No wheezes, rales, or rhonchi. CARDIAC: tachycardia, irregular rhythm. S1 and S2, without murmurs, gallops, or rubs. VASCULAR: No Edema. Peripheral pulses normal and equal in all extremities. ABDOMEN: Soft, non tender and non distended. No rebound or guarding, and no masses palpated. Bowel Sounds normal. MUSCULOSKELETAL: Good range of motion of all major joints. Extremities without clubbing, cyanosis or edema. NEUROLOGIC EXAM: Alert and oriented x 4. no focal sensory or strength deficits. PSYCHIATRIC: Mood normal. SKIN: detail exam as documented in skin assessment - Constitutional Vitals: Temp Pulse Resp BP Pulse Ox 98.2 F 108 H 19 106/81 96 10/27/21 00:27 10/27/21 04:30 10/27/21 04:30 10/27/21 04:30 10/27/21 04:20 General appearance: Present: no acute distress, well-nourished HEART Score - HEART Score EKG: Non-specific Risk factors: 1-2 risk factors Troponin: 1-3x normal limit - Critical Actions Critical Actions: 4-6 pts:12-16.6% risk of adverse cardiac event. Should be admitted Results - Labs CBC & Chem 7: 10/27/21 04:33 10/27/21 04:33 Labs: Laboratory Last Values WBC 11.5 K/mm3 (4.5-11.0) H 10/27/21 04:33 RBC 4.91 M/mm3 (3.65-5.03) 10/27/21 04:33 Hgb 13.0 gm/dl (10.1-14.3) 10/27/21 04:33 Hct 40.4 % (30.3-42.9) 10/27/21 04:33 MCV 82 fl (79-97) 10/27/21 04:33 MCH 26 pg (28-32) L 10/27/21 04:33 MCHC 32 % (30-34) 10/27/21 04:33 RDW 19.4 % (13.2-15.2) H 10/27/21 04:33 Plt Count 250 K/mm3 (140-440) 10/27/21 04:33 Lymph % (Auto) 16.0 % (13.4-35.0) 10/27/21 04:33 [place] % (Auto) 5.8 % (0.0-7.3) 10/27/21 04:33 Eos % (Auto) 0.0 % (0.0-4.3) 10/27/21 04:33 Baso % (Auto) 0.1 % (0.0-1.8) 10/27/21 04:33 Lymph # (Auto) 1.8 K/mm3 (1.2-5.4) 10/27/21 04:33 [place] # (Auto) 0.7 K/mm3 (0.0-0.8) 10/27/21 04:33 Eos # (Auto) 0.0 K/mm3 (0.0-0.4) 10/27/21 04:33 Baso # (Auto) 0.0 K/mm3 (0.0-0.1) 10/27/21 04:33 Seg Neutrophils % 78.1 % (40.0-70.0) H 10/27/21 04:33 Seg Neutrophils # 9.0 K/mm3 (1.8-7.7) H 10/27/21 04:33 Sodium 136 mmol/L (137-145) L 10/27/21 04:33 Potassium 5.1 mmol/L (3.6-5.0) H D 10/27/21 04:33 Chloride 103.0 mmol/L (98-107) 10/27/21 04:33 Carbon Dioxide 10 mmol/L (22-30) L D 10/27/21 04:33 Anion Gap 28 mmol/L 10/27/21 04:33 BUN 52 mg/dL (7-17) H 10/27/21 04:33 Creatinine 1.4 mg/dL (0.6-1.2) H D 10/27/21 04:33 Estimated GFR 48 ml/min 10/27/21 04:33 BUN/Creatinine Ratio 37 % 10/27/21 04:33 Glucose 81 mg/dL (65-100) 10/27/21 04:33 POC Glucose 84 mg/dL (70-105) 10/27/21 07:55 Calcium 8.7 mg/dL (8.4-10.2) 10/27/21 04:33 Magnesium 1.90 mg/dL (1.7-2.3) 10/26/21 10:59 Total Bilirubin 2.30 mg/dL (0.1-1.2) H 10/27/21 04:33 AST 156 units/L (5-40) H 10/27/21 04:33 ALT 167 units/L (7-56) H 10/27/21 04:33 Alkaline Phosphatase Not Reportable 10/27/21 04:33 Total Protein 6.0 g/dL (6.3-8.2) L 10/27/21 04:33 Albumin 3.3 g/dL (3.9-5) L 10/27/21 04:33 Albumin/Globulin Ratio 1.2 % 10/27/21 04:33 Mcmahon/IV: Voiding Method External Female Catheter Active Medications - Current Medications Current Medications: Generic Name Dose Route Start Last Admin Trade Name Freq PRN Reason Stop Dose Admin Acetaminophen 650 mg 10/26/21 20:57 Acetaminophen 325 Mg Tab PO Q4H PRN Pain MILD(1-3)/Fever >100.5/ROGERS Albuterol 2.5 mg 10/26/21 21:07 Albuterol 2.5 Mg/3 Ml Nebu IH Q4HRT PRN Wheezing/SOB Furosemide 40 mg 10/26/21 21:00 10/27/21 01:23 Furosemide 40 Mg Tab PO 40 mg DAILY HENNY Administration Amiodarone HCl 360 mg/ 200 mls @ 33.333 mls/hr 10/26/21 14:00 10/26/21 21:27 Dextrose IV Infused DIRECT HENNY Titration Protocol 1 MG/MIN Lisinopril 2.5 mg 10/26/21 21:00 Lisinopril 5 Mg Tab PO QDAY HENNY Metoclopramide HCl 10 mg 10/26/21 20:57 Metoclopramide 10 Mg/2 Ml Inj IV Q6H PRN Nausea And Vomiting Metoprolol Tartrate 50 mg 10/26/21 22:15 Metoprolol Tartrate 50 Mg Tab PO Q12HR HENNY Morphine Sulfate 2 mg 10/26/21 20:57 Morphine 2 Mg/1 Ml Inj IV Q4H PRN Pain, Moderate (4-6) Ondansetron HCl 4 mg 10/26/21 20:57 10/27/21 07:54 Ondansetron 4 Mg/2 Ml Inj IV 4 mg Q3H PRN Administration Nausea And Vomiting Oxycodone/Acetaminophen 1 tab 10/26/21 20:57 Oxycodone /Acetaminophen 5-325mg Tab PO Q6H PRN Pain, Moderate (4-6) Potassium Chloride 20 meq 10/26/21 21:00 10/26/21 22:12 Potassium Chloride Er 20 Meq Tab PO 20 meq QDAY HENNY Administration Sodium Chloride 10 ml 10/26/21 22:00 10/26/21 22:35 Sodium Chloride 0.9% 10 Ml Flush Syringe IV 10 ml BID HENNY Administration Sodium Chloride 10 ml 10/26/21 20:57 Sodium Chloride 0.9% 10 Ml Flush Syringe IV PRN PRN LINE FLUSH
[2021-10-27] MEDS ORDERED: SODIUM CHLORIDE 0.9% 500 ML 500 ML IV SCH (09:00)
--- NOTE | 2021-10-27 10:47 | Consultation ---
History of Present Illness Consult date: 10/27/21 Consult reason: atrial fibrillation, congestive heart failure History of present illness: The patient is a 51-year-old woman with a cardiac history dating back to June 2013, when she was diagnosed with a severe nonischemic cardiomyopathy. During that admission to this hospital, a cardiac catheterization demonstrated angiographically normal coronary arteries, but her left ventricular ejection fraction was less than 20% by LV angiogram and echocardiogram. She was placed on appropriate guideline directed medical therapy and within 6 to 9 months, her outpatient echocardiogram reported near complete resolution of her cardiomyo vidal. Left ventricular ejection fraction was then reported at 50 to 55%. Soon after that, she was lost to cardiac follow-up in our office. She returned to our office yesterday with complaints of 1 week of increasing shortness of breath and increasing abdominal girth. She was initially treated b y her PCP who put her on furosemide, but she did not improve and instead developed additional symptoms of palpitations, and on arrival to clinic yesterday she was found with rapid atrial fibrillation, and sent to the emergency room. In the emergency room, she was treated with intravenous Cardizem followed by intravenous amiodarone for atrial fibrillation rate control, and admitted to the CCU. This morning, she has less shortness of breath, but complains of persistent abdominal distention and increasing abdominal girth. There is no chest pain, lower extremity edema is minimal. ECG in the emergency room was rapid atrial fibrillation with nonspecific ST segment changes. There is no evidence of a chest x-ray being performed in the emergency room on her admission. Echocardiogram done today showed a severe four-chamber dilated cardiomyopathy, left ventricular ejection fraction 10 to 15%. Past History Past Medical History: heart failure, hypertension Medications and Allergies Allergies Allergy/AdvReac Type Severity Reaction Status Date / Time No Known Allergies Allergy Verified 10/26/21 10:54 Home Medications Medication Instructions Recorded Confirmed Last Taken Type Furosemide [Lasix] 40 mg PO DAILY #30 tablet 07/10/13 10/27/21 Unknown Rx carvediloL [Coreg] 6.25 mg PO BID #60 tablet 07/10/13 Unknown Rx lisinopriL [Zestril TAB] 2.5 mg PO QDAY #30 tablet 07/10/13 Unknown Rx Albuterol Sulfate [Proventil Hfa] 1 puff IH TID PRN #1 hfa.aer.ad 08/10/20 Unknown Rx Furosemide [Lasix] 20 mg PO QDAY #30 tablet 07/05/21 Unknown Rx Potassium Chloride [K-Dur] 20 meq PO QDAY #30 tab 07/05/21 10/27/21 Unknown Rx Active Meds: Active Medications Acetaminophen (Acetaminophen 325 Mg Tab) 650 mg PO Q4H PRN PRN Reason: Pain MILD(1-3)/Fever >100.5/ROGERS Albuterol (Albuterol 2.5 Mg/3 Ml Nebu) 2.5 mg IH Q4HRT PRN PRN Reason: Wheezing/SOB Amiodarone HCl 360 mg/ (Dextrose) 200 mls @ 33.333 mls/hr IV DIRECT HENNY; Protocol Last Admin: 10/27/21 08:10 Dose: 0.5 mg/min, 16.667 mls/hr Dextrose/Sodium Chloride (D5/0.45ns) 1,000 mls @ 50 mls/hr IV DIRECT HENNY Metoclopramide HCl (Metoclopramide 10 Mg/2 Ml Inj) 10 mg IV Q6H PRN PRN Reason: Nausea And Vomiting Metoprolol Tartrate (Metoprolol Tartrate 50 Mg Tab) 50 mg PO Q12HR HENNY Last Admin: 10/27/21 09:50 Dose: 50 mg Morphine Sulfate (Morphine 2 Mg/1 Ml Inj) 2 mg IV Q4H PRN PRN Reason: Pain, Moderate (4-6) Ondansetron HCl (Ondansetron 4 Mg/2 Ml Inj) 4 mg IV Q3H PRN PRN Reason: Nausea And Vomiting Last Admin: 10/27/21 07:54 Dose: 4 mg Oxycodone/Acetaminophen (Oxycodone /Acetaminophen 5-325mg Tab) 1 tab PO Q6H PRN PRN Reason: Pain, Moderate (4-6) Sodium Chloride (Sodium Chloride 0.9% 10 Ml Flush Syringe) 10 ml IV BID HENNY Last Admin: 10/26/21 22:35 Dose: 10 ml Sodium Chloride (Sodium Chloride 0.9% 10 Ml Flush Syringe) 10 ml IV PRN PRN PRN Reason: LINE FLUSH Review of Systems Cardiovascular: orthopnea, palpitations, rapid/irregular heart beat, edema, s hortness of breath, no chest pain, no syncope, no lightheadedness Physical Examination Vital Signs Temp Pulse Resp BP 98.1 F 127 H 18 151/93 10/26/21 10:34 10/26/21 10:34 10/26/21 10:34 10/26/21 10:34 General appearance: mild distress HEENT: Positive: PERRL Neck: Positive: neck supple Cardiac: Positive: irregularly irregular Lungs: Positive: Decreased Breath Sounds Neuro: Positive: Grossly Intact Abdomen: Positive: Soft Female genitourinary: deferred Skin: Positive: Clear Extremities: Present: +1 Edema Results 10/27/21 04:33 10/27/21 04:33 Cardiac Enzymes 10/26/21 10/27/21 Range/Units 10:59 04:33 AST 116 H 156 H (5-40) units/L CBC 10/26/21 10/27/21 Range/Units 10:59 04:33 WBC 7.6 11.5 H (4.5-11.0) K/mm3 RBC 4.99 4.91 (3.65-5.03) M/mm3 Hgb 13.0 13.0 (10.1-14.3) gm/dl Hct 40.9 40.4 (30.3-42.9) % Plt Count 260 250 (140-440) K/mm3 Lymph # (Auto) 2.0 1.8 (1.2-5.4) K/mm3 [place] # (Auto) 0.7 0.7 (0.0-0.8) K/mm3 Eos # (Auto) 0.1 0.0 (0.0-0.4) K/mm3 Baso # (Auto) 0.2 H 0.0 (0.0-0.1) K/mm3 Comprehensive Metabolic Panel 10/26/21 10/27/21 Range/Units 10:59 04:33 Sodium 136 L 136 L (137-145) mmol/L Potassium 3.6 5.1 H D (3.6-5.0) mmol/L Chloride 100.4 103.0 (98-107) mmol/L Carbon Dioxide 19 L 10 L D (22-30) mmol/L BUN 40 H 52 H (7-17) mg/dL Creatinine 0.9 1.4 H D (0.6-1.2) mg/dL Glucose 108 H 81 (65-100) mg/dL Calcium 9.4 8.7 (8.4-10.2) mg/dL AST 116 H 156 H (5-40) units/L ALT 146 H 167 H (7-56) units/L Alkaline Phosphatase 93 Not Reportable (35-129) units/L Total Protein 6.7 6.0 L (6.3-8.2) g/dL Albumin 3.9 3.3 L (3.9-5) g/dL EKG interpretations - Telemetry EKG Rhythm: Atrial Fibrillation (With rapid ventricular rate and nonspecific ST changes) Assessment and Plan - Patient Problems (1) Acute systolic CHF (congestive heart failure) Current Visit: No Status: Chronic Plan to address problem: Patient presents with shortness of breath, increased abdominal girth and lower extremity edema. Echocardiogram shows a severe four-chamber dilated cardiomyopathy. This likely represents a recurrence of the patient's nonischemic cardiomyopathy which was first diagnosed in 2013 and quickly improved on guideline directed medical therapy. I will order a chest x-ray which appears not to have been performed since admission. And the patient may likely benefit from abdominal ultrasound for assessment of her apparent ascites and hepatic congestion. In addition to intravenous diuretics, we will re-institute optimal medical therapy and a course of intravenous milrinone. (2) Atrial fibrillation with RVR Current Visit: No Status: Acute Plan to address problem: At this time, rate control of atrial fibrillation with amiodarone and the addition of digitalis. She will need long-term oral anticoagulation with a NOAC.
[2021-10-27] MEDS ORDERED: MILRINONE-D5W 20 MG/100 ML 20 MG/100 ML BAG IV SCH (11:00)
[2021-10-27] MEDS ORDERED: D5W/0.45% NACL 1,000 ML IV SCH (11:00)
--- NOTE | 2021-10-27 11:11 | Electrocardiograph Report ---
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 Electronically Signed On 10-27-2021 11:10:25 EDT by Beny Salinas
--- NOTE | 2021-10-27 11:16 | Electrocardiograph Report ---
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
[2021-10-27] MEDS: DIGOXIN 0.5 MG/2 ML INJ IV SCH ×2 (11:23→18:00)
[2021-10-27] MEDS: SPIRONOLACTONE 25 MG TAB PO SCH (11:24)
--- NOTE | 2021-10-27 11:35 | Consultation ---
History of Present Illness - Reason for Consult Consult date: 10/27/21 afib - History of Present Illness 51 y/o female with prior history of dilated Nonischemic Cardiomyopathy presents with afib with and fluid overload secondary to heart failure with hepatic congestion. Patient, per her, has not followed up since her admission in 2013. She has been on and off diuretics. Was seen in our ED a few months ago for worsening shortness of breath secondary to volume overload at that time. Corby maradiaga on Amio drip. Cardiology has seen as well and has started her on aggressive heart failure regimen. Past History Past Medical History: other (NICM, Noncompliance) Past Surgical History: Other Social history: no significant social history, smoking Family history: no significant family history Medications and Allergies Allergies Allergy/AdvReac Type Severity Reaction Status Date / Time No Known Allergies Allergy Verified 10/26/21 10:54 Home Medications Medication Instructions Recorded Confirmed Last Taken Type Furosemide [Lasix] 40 mg PO DAILY #30 tablet 07/10/13 10/27/21 Unknown Rx carvediloL [Coreg] 6.25 mg PO BID #60 tablet 07/10/13 Unknown Rx lisinopriL [Zestril TAB] 2.5 mg PO QDAY #30 tablet 07/10/13 Unknown Rx Albuterol Sulfate [Proventil Hfa] 1 puff IH TID PRN #1 hfa.aer.ad 08/10/20 Unknown Rx Furosemide [Lasix] 20 mg PO QDAY #30 tablet 07/05/21 Unknown Rx Potassium Chloride [K-Dur] 20 meq PO QDAY #30 tab 07/05/21 10/27/21 Unknown Rx Active Meds: Active Medications Acetaminophen (Acetaminophen 325 Mg Tab) 650 mg PO Q4H PRN PRN Reason: Pain MILD(1-3)/Fever >100.5/ROGERS Albuterol (Albuterol 2.5 Mg/3 Ml Nebu) 2.5 mg IH Q4HRT PRN PRN Reason: Wheezing/SOB Carvedilol (Carvedilol 3.125 Mg Tab) 3.125 mg PO BID HENNY Digoxin (Digoxin 0.5 Mg/2 Ml Inj) 0.25 mg IV Q6HR HENNY Stop: 10/27/21 18:01 Last Admin: 10/27/21 11:23 Dose: 0.25 mg Digoxin (Digoxin 0.25 Mg Tab) 0.25 mg PO DAILY@1700 HENNY Furosemide (Furosemide 40 Mg/4 Ml Inj) 40 mg IV 0600,1800 HENNY Amiodarone HCl 360 mg/ (Dextrose) 200 mls @ 33.333 mls/hr IV DIRECT HENNY; Protocol Last Admin: 10/27/21 08:10 Dose: 0.5 mg/min, 16.667 mls/hr Dextrose/Sodium Chloride (D5/0.45ns) 1,000 mls @ 50 mls/hr IV DIRECT HENNY Milrinone Lactate/Dextrose (Milrinone-D5w 20 Mg/100 Ml) 20 mg in 100 mls @ 8.895 mls/hr IV DIRECT HENNY; Protocol Metoclopramide HCl (Metoclopramide 10 Mg/2 Ml Inj) 10 mg IV Q6H PRN PRN Reason: Nausea And Vomiting Morphine Sulfate (Morphine 2 Mg/1 Ml Inj) 2 mg IV Q4H PRN PRN Reason: Pain, Moderate (4-6) Ondansetron HCl (Ondansetron 4 Mg/2 Ml Inj) 4 mg IV Q3H PRN PRN Reason: Nausea And Vomiting Last Admin: 10/27/21 07:54 Dose: 4 mg Oxycodone/Acetaminophen (Oxycodone /Acetaminophen 5-325mg Tab) 1 tab PO Q6H PRN PRN Reason: Pain, Moderate (4-6) Sodium Chloride (Sodium Chloride 0.9% 10 Ml Flush Syringe) 10 ml IV BID [facility] Last Admin: 10/27/21 11:24 Dose: 10 ml Sodium Chloride (Sodium Chloride 0.9% 10 Ml Flush Syringe) 10 ml IV PRN PRN PRN Reason: LINE FLUSH Spironolactone (Spironolactone 25 Mg Tab) 25 mg PO QDAY [facility] Last Admin: 10/27/21 11:24 Dose: 25 mg Review of Systems All systems: negative Constitutional: weight gain, fatigue Cardiovascular: orthopnea Respiratory: shortness of breath, dyspnea on exertion Exam - Constitutional Vitals: Temp Pulse Resp BP Pulse Ox 98.2 F 106 H 14 99/81 93 10/27/21 00:27 10/27/21 11:24 10/27/21 10:20 10/27/21 11:24 10/27/21 09:20 General appearance: Present: mild distress, obese - EENT Eyes: Present: PERRL ENT: hearing intact - Neck Neck: Present: supple, other (large in circumference) - Respiratory Respiratory effort: labored Respiratory: bilateral: rales - Cardiovascular Rhythm: irregularly irregular - Extremities Extremity abnormal: edema, other (essentially anasarca) - Abdominal General gastrointestinal: Present: soft, distended Female genitourinary: Present: deferred - Rectal Rectal Exam: deferred Results - Labs CBC & Chem 7: 10/27/21 04:33 10/27/21 04:33 Labs: Abnormal lab results 10/26/21 10/26/21 10/27/21 Range/Units 10:59 10:59 04:33 WBC 11.5 H (4.5-11.0) K/mm3 MCH 26 L 26 L (28-32) pg RDW 19.4 H 19.4 H (13.2-15.2) % [place] % (Auto) 8.7 H (0.0-7.3) % Baso % (Auto) 2.5 H (0.0-1.8) % Baso # (Auto) 0.2 H (0.0-0.1) K/mm3 Seg Neutrophils % 78.1 H (40.0-70.0) % Seg Neutrophils # 9.0 H (1.8-7.7) K/mm3 Sodium 136 L (137-145) mmol/L Potassium (3.6-5.0) mmol/L Carbon Dioxide 19 L (22-30) mmol/L BUN 40 H (7-17) mg/dL Creatinine (0.6-1.2) mg/dL Glucose 108 H (65-100) mg/dL POC Glucose (70-105) mg/dL Total Bilirubin (0.1-1.2) mg/dL AST 116 H (5-40) units/L ALT 146 H (7-56) units/L Total Protein (6.3-8.2) g/dL Albumin (3.9-5) g/dL 10/27/21 10/27/21 10/27/21 Range/Units 04:33 07:33 09:57 WBC (4.5-11.0) K/mm3 MCH (28-32) pg RDW (13.2-15.2) % [place] % (Auto) (0.0-7.3) % Baso % (Auto) (0.0-1.8) % Baso # (Auto) (0.0-0.1) K/mm3 Seg Neutrophils % (40.0-70.0) % Seg Neutrophils # (1.8-7.7) K/mm3 Sodium 136 L (137-145) mmol/L Potassium 5.1 H D (3.6-5.0) mmol/L Carbon Dioxide 10 L D (22-30) mmol/L BUN 52 H (7-17) mg/dL Creatinine 1.4 H D (0.6-1.2) mg/dL Glucose (65-100) mg/dL POC Glucose 57 L 127 H (70-105) mg/dL Total Bilirubin 2.30 H (0.1-1.2) mg/dL AST 156 H (5-40) units/L ALT 167 H (7-56) units/L Total Protein 6.0 L (6.3-8.2) g/dL Albumin 3.3 L (3.9-5) g/dL Assessment and Plan 51 y/o, obese female admitted with dyspnea, afib and found to be in acute systolic heart failure exacerbation. 1. RAte control 2. Anticoagulation 3. HF therapy 4. Trend LFT's 5. Cards had suggested abdominal ultrasound but with EF being 15 will cancel Guarded prognosis. CCT 31 minutes.
--- NOTE | 2021-10-27 14:15 | XRay Report ---
CHEST 1 VIEW 10/27/2021 1:58 PM INDICATION / CLINICAL INFORMATION: CHF. COMPARISON: 07/05/2021 FINDINGS: SUPPORT DEVICES: None. HEART / MEDIASTINUM: Stable moderate cardiomegaly. LUNGS / PLEURA: No significant pulmonary or pleural abnormality. No pneumothorax. ADDITIONAL FINDINGS: No significant additional findings. IMPRESSION: 1. No acute findings. Signer Name: Judah Arvizu MD Signed: 10/27/2021 2:11 PM Workstation Name: [id number]
[2021-10-27] MEDS: APIXABAN 5 MG TAB PO SCH (16:13)
[2021-10-27 17:40] LABS: Hemoglobin 12.6 gm/dl (10.1-14.3); Mean Corpuscular HGB Conc 32 % (30-34); Mean Corpuscular Volume 84 fl (79-97); Platelet Count 225 K/mm3 (140-440); Red Blood Count 4.67 M/mm3 (3.65-5.03)
[2021-10-27] MEDS: FUROSEMIDE 40 MG/4 ML INJ IV SCH (18:00)
[2021-10-28] MEDS: carvediloL 3.125 MG TAB PO SCH ×3 (02:30→22:03)
[2021-10-28] MEDS: APIXABAN 5 MG TAB PO SCH ×3 (02:30→22:03)
[2021-10-28] MEDS: FUROSEMIDE 40 MG/4 ML INJ IV SCH ×2 (06:12→17:21)
[2021-10-28] MEDS: AMIODARONE 360 MG in DEXTROSE 5% IN WATER 192.8 ML IV SCH ×2 (06:15→08:02)
--- NOTE | 2021-10-28 08:01 | Progress Note ---
Assessment and Plan Assessment and plan: History of present illness: Patient is a 51-year-old female with history of CHF and hypertension sent from primary care office for evaluation of A. fib with RVR. She denies past history of arrhythmia. Denies shortness of breath or chest pain. Has been palpitations no diaphoresis. No exacerbating or relieving factors. No orthopnea. Hospital Course: 10/27: Severe dilated cardiomyopathy with EF 15%. Started on IV milrinone and IV diuretics. Abd US ordered to evaluate abdominal ascites. Patient to continue amiodorone IV for afib tx. 10/28: Milrinone held this AM. HR remains elevated in 100-110's. Continuing amiodorone IV and digoxin. Ordered digoxin level. Will be important to track this in light of renal insufficiency. Assessment and Plan: #Atrial fibrillation with rapid ventricular response -c/o palpitations. - ekg: afib rvr, ventricular rate: 178 bpm in ER - new onset. - amiodorone IV currently - started on meteprolol, digoxin for rate control. -check digoxin level - started apixiaban for AC, chads > 2. -cardiology consultation #Acute systolic heart failure -ECHO shows dilated CMP, EF 15%. - IV diuretics, IV milrinone. - GDMT: metoprolol, aldactone -cardiology following #Acute kidney injury - 0.9 on admission, inc to 1.4 - hold francisca-i and lasix at this time - gentle IVF 500 cc at 75. #Hyperkalemia - K=5.1 - d/c K supplement at this time. #Hypertension - metoprolol only for now - patient hypotensive overnight #Morbid Obesity - BMI - Counseled patient on the importance of weight loss, incorporating exercise, and dietary changes (lean meats, fresh fruits and vegetables, and water intake). Patient expresses understanding. - Time: +15 min #Preventative health care - preventative health counseling regarding management of life stressors, medication compliance and overall effect of chronic medical conditions on overall health. Encourage patient to follow up closely with with OP providers +30 minutes. The high probability of a clinically significant, sudden or life threatening deterioration of the [multi] system(s) required my full and direct attention, intervention and personal management. The aggregate critical care time was [60] minutes. This time is in addition to time spent performing reported procedures but includes the following: [x] Data Review and interpretation [x] Patient assessment and monitoring of vital signs [x] Documentation [x] Medication orders and management History Interval history: No acute overnight events. No acute complaints this AM. Hospitalist Physical - Physical exam Narrative exam: Physical Exam: VITAL SIGNS: Reviewed. GENERAL: The patient appears normally developed, Vital signs as documented. HEAD: No signs of head trauma. EYES: Pupils are equal. Extraocular motions intact. EARS: Hearing grossly intact. MOUTH: Oropharynx is normal. NECK: No adenopathy, no JVD. CHEST: Chest with clear breath sounds bilaterally. No wheezes, rales, or rhonchi. CARDIAC: tachycardia, irregular rhythm. S1 and S2, without murmurs, gallops, or rubs. VASCULAR: No Edema. Peripheral pulses normal and equal in all extremities. ABDOMEN: Soft, non tender and non distended. No rebound or guarding, and no masses palpated. Bowel Sounds normal. MUSCULOSKELETAL: Good range of motion of all major joints. Extremities without clubbing, cyanosis or edema. NEUROLOGIC EXAM: Alert and oriented x 4. no focal sensory or strength deficits. PSYCHIATRIC: Mood normal. SKIN: detail exam as documented in skin assessment - Constitutional Vitals: Temp Pulse Resp BP Pulse Ox 97.4 F L 115 H 18 121/78 100 10/28/21 03:31 10/28/21 07:10 10/28/21 07:10 10/28/21 07:10 10/28/21 07:10 General appearance: Present: no acute distress, well-nourished HEART Score - HEART Score EKG: Non-specific Risk factors: 1-2 risk factors Troponin: 1-3x normal limit - Critical Actions Critical Actions: 4-6 pts:12-16.6% risk of adverse cardiac event. Should be admitted Results - Labs CBC & Chem 7: 10/27/21 14:53 10/27/21 14:53 Labs: Laboratory Last Values WBC 12.8 K/mm3 (4.5-11.0) H 10/27/21 14:53 RBC 4.67 M/mm3 (3.65-5.03) 10/27/21 14:53 Hgb 12.6 gm/dl (10.1-14.3) 10/27/21 14:53 Hct 39.0 % (30.3-42.9) 10/27/21 14:53 MCV 84 fl (79-97) 10/27/21 14:53 MCH 27 pg (28-32) L 10/27/21 14:53 MCHC 32 % (30-34) 10/27/21 14:53 RDW 20.0 % (13.2-15.2) H 10/27/21 14:53 Plt Count 225 K/mm3 (140-440) 10/27/21 14:53 Lymph % (Auto) 16.0 % (13.4-35.0) 10/27/21 04:33 King % (Auto) 5.8 % (0.0-7.3) 10/27/21 04:33 Eos % (Auto) 0.0 % (0.0-4.3) 10/27/21 04:33 Baso % (Auto) 0.1 % (0.0-1.8) 10/27/21 04:33 Lymph # (Auto) 1.8 K/mm3 (1.2-5.4) 10/27/21 04:33 King # (Auto) 0.7 K/mm3 (0.0-0.8) 10/27/21 04:33 Eos # (Auto) 0.0 K/mm3 (0.0-0.4) 10/27/21 04:33 Baso # (Auto) 0.0 K/mm3 (0.0-0.1) 10/27/21 04:33 Seg Neutrophils % 78.1 % (40.0-70.0) H 10/27/21 04:33 Seg Neutrophils # 9.0 K/mm3 (1.8-7.7) H 10/27/21 04:33 Sodium 136 mmol/L (137-145) L 10/27/21 04:33 Potassium 5.1 mmol/L (3.6-5.0) H D 10/27/21 04:33 Chloride 103.0 mmol/L (98-107) 10/27/21 04:33 Carbon Dioxide 10 mmol/L (22-30) L D 10/27/21 04:33 Anion Gap 28 mmol/L 10/27/21 04:33 BUN 52 mg/dL (7-17) H 10/27/21 04:33 Creatinine 1.7 mg/dL (0.6-1.2) H 10/27/21 14:53 Estimated GFR 38 ml/min 10/27/21 14:53 BUN/Creatinine Ratio 37 % 10/27/21 04:33 Glucose 81 mg/dL (65-100) 10/27/21 04:33 POC Glucose 127 mg/dL (70-105) H 10/27/21 09:57 Calcium 8.7 mg/dL (8.4-10.2) 10/27/21 04:33 Magnesium 1.90 mg/dL (1.7-2.3) 10/26/21 10:59 Total Bilirubin 2.30 mg/dL (0.1-1.2) H 10/27/21 04:33 AST 156 units/L (5-40) H 10/27/21 04:33 ALT 167 units/L (7-56) H 10/27/21 04:33 Alkaline Phosphatase Not Reportable 10/27/21 04:33 Total Protein 6.0 g/dL (6.3-8.2) L 10/27/21 04:33 Albumin 3.3 g/dL (3.9-5) L 10/27/21 04:33 Albumin/Globulin Ratio 1.2 % 10/27/21 04:33 Mcmahon/IV: Voiding Method External Female Catheter Active Medications - Current Medications Current Medications: Generic Name Dose Route Start Last Admin Trade Name Freq PRN Reason Stop Dose Admin Acetaminophen 650 mg 10/26/21 20:57 Acetaminophen 325 Mg Tab PO Q4H PRN Pain MILD(1-3)/Fever >100.5/ROGERS Albuterol 2.5 mg 10/26/21 21:07 Albuterol 2.5 Mg/3 Ml Nebu IH Q4HRT PRN Wheezing/SOB Apixaban 5 mg 10/27/21 15:00 10/28/21 02:30 Apixaban 5 Mg Tab PO 5 mg Q12HR HENNY Administration Protocol Carvedilol 3.125 mg 10/27/21 22:00 10/28/21 02:30 Carvedilol 3.125 Mg Tab PO 3.125 mg BID HENNY Administration Digoxin 0.25 mg 10/28/21 17:00 Digoxin 0.25 Mg Tab PO DAILY@1700 HENNY Furosemide 40 mg 10/27/21 18:00 10/28/21 06:12 Furosemide 40 Mg/4 Ml Inj IV 40 mg 0600,1800 HENNY Administration Amiodarone HCl 360 mg/ 200 mls @ 33.333 mls/hr 10/26/21 14:00 10/28/21 06:15 Dextrose IV 0.5 mg/min DIRECT HENNY 16.667 mls/hr Administration Protocol 1 MG/MIN Dextrose/Sodium Chloride 1,000 mls @ 50 mls/hr 10/27/21 11:00 10/28/21 06:10 D5/0.45ns IV 50 mls/hr DIRECT HENNY Administration Milrinone Lactate/Dextrose 20 mg in 100 mls @ 8.895 mls/hr 10/27/21 11:00 10/28/21 07:47 Milrinone-D5w 20 Mg/100 Ml IV 0.25 mcg/kg/min DIRECT HENNY 8.895 mls/hr Infusion Protocol 0.25 MCG/KG/MIN Metoclopramide HCl 10 mg 10/26/21 20:57 Metoclopramide 10 Mg/2 Ml Inj IV Q6H PRN Nausea And Vomiting Morphine Sulfate 2 mg 10/26/21 20:57 Morphine 2 Mg/1 Ml Inj IV Q4H PRN Pain, Moderate (4-6) Ondansetron HCl 4 mg 10/26/21 20:57 10/27/21 07:54 Ondansetron 4 Mg/2 Ml Inj IV 4 mg Q3H PRN Administration Nausea And Vomiting Oxycodone/Acetaminophen 1 tab 10/26/21 20:57 Oxycodone /Acetaminophen 5-325mg Tab PO Q6H PRN Pain, Moderate (4-6) Sodium Chloride 10 ml 10/26/21 22:00 10/28/21 06:16 Sodium Chloride 0.9% 10 Ml Flush Syringe IV 10 ml BID HENNY Administration Sodium Chloride 10 ml 10/26/21 20:57 Sodium Chloride 0.9% 10 Ml Flush Syringe IV PRN PRN LINE FLUSH Spironolactone 25 mg 10/27/21 11:00 10/27/21 11:24 Spironolactone 25 Mg Tab PO 25 mg QDAY HENNY Administration
[2021-10-28] MEDS: SPIRONOLACTONE 25 MG TAB PO SCH (09:08)
--- NOTE | 2021-10-28 09:50 | Progress Note ---
Assessment and Plan 51 y/o, obese female admitted with dyspnea, afib and found to be in acute systolic heart failure exacerbation. Will discuss with cards about rate control outside of amio. Still on Dig, but still not controlled. 1. RAte control 2. Anticoagulation 3. HF therapy 4. Trend LFT's 5. Cards had suggested abdominal ultrasound but with EF being 15 will cancel Guarded prognosis. CCT 31 minutes. Subjective Date of service: 10/28/21 Interval history: Better, Good UOP but rate is not well controlled, rate still not controlled. Objective - Constitutional Vitals: Vital Signs - 12hr 10/27/21 10/27/21 10/27/21 22:00 22:10 22:20 Temperature Pulse Rate 117 H 128 H 126 H Pulse Rate [ From Monitor] Respiratory 16 18 10 L Rate Blood Pressure 105/67 92/73 92/73 O2 Sat by Pulse 100 100 100 Oximetry 10/27/21 10/27/21 10/27/21 22:30 22:40 22:50 Temperature Pulse Rate 119 H 112 H Pulse Rate [ From Monitor] Respiratory 18 14 18 Rate Blood Pressure 92/73 74/60 74/60 O2 Sat by Pulse 100 99 Oximetry 10/27/21 10/27/21 10/27/21 23:00 23:10 23:20 Temperature Pulse Rate 111 H 126 H 126 H Pulse Rate [ From Monitor] Respiratory 19 18 19 Rate Blood Pressure 74/60 94/73 94/73 O2 Sat by Pulse 100 100 100 Oximetry 10/27/21 10/27/21 10/27/21 23:30 23:40 23:46 Temperature 97.5 F L Pulse Rate 101 H 120 H 107 H Pulse Rate [ From Monitor] Respiratory 19 17 19 Rate Blood Pressure 94/73 90/69 90/69 O2 Sat by Pulse 100 100 100 Oximetry 10/27/21 10/28/21 10/28/21 23:50 00:00 00:10 Temperature Pulse Rate 104 H 131 H 109 H Pulse Rate [ From Monitor] Respiratory 20 18 17 Rate Blood Pressure 90/69 90/69 104/53 O2 Sat by Pulse 100 100 100 Oximetry 10/28/21 10/28/21 10/28/21 00:20 00:30 00:40 Temperature Pulse Rate 103 H 112 H 95 H Pulse Rate [ From Monitor] Respiratory 16 17 17 Rate Blood Pressure 104/53 104/53 98/68 O2 Sat by Pulse 100 100 100 Oximetry 10/28/21 10/28/21 10/28/21 00:50 01:00 01:10 Temperature Pulse Rate 119 H 111 H 97 H Pulse Rate [ From Monitor] Respiratory 16 16 17 Rate Blood Pressure 98/68 98/68 91/58 O2 Sat by Pulse 100 100 100 Oximetry 10/28/21 10/28/21 10/28/21 01:20 01:30 01:40 Temperature Pulse Rate 116 H 112 H 121 H Pulse Rate [ From Monitor] Respiratory 19 9 L 14 Rate Blood Pressure 91/58 91/58 90/66 O2 Sat by Pulse 100 100 48 L Oximetry 10/28/21 10/28/21 10/28/21 01:50 02:00 02:10 Temperature Pulse Rate 120 H 134 H 108 H Pulse Rate [ From Monitor] Respiratory 20 20 15 Rate Blood Pressure 90/66 90/66 98/80 O2 Sat by Pulse 100 Oximetry 10/28/21 10/28/21 10/28/21 02:20 02:30 02:40 Temperature Pulse Rate 131 H 99 H 122 H Pulse Rate [ From Monitor] Respiratory 14 15 20 Rate Blood Pressure 98/80 98/80 94/68 O2 Sat by Pulse 100 95 100 Oximetry 10/28/21 10/28/21 10/28/21 02:50 03:00 03:10 Temperature Pulse Rate 126 H 114 H 108 H Pulse Rate [ From Monitor] Respiratory 20 17 17 Rate Blood Pressure 94/68 92/64 O2 Sat by Pulse 100 100 100 Oximetry 10/28/21 10/28/21 10/28/21 03:20 03:30 03:31 Temperature 97.4 F L Pulse Rate 119 H 115 H Pulse Rate [ From Monitor] Respiratory 18 20 Rate Blood Pressure 92/64 106/61 O2 Sat by Pulse 99 100 Oximetry 10/28/21 10/28/21 10/28/21 03:40 03:50 04:00 Temperature Pulse Rate 96 H 121 H 107 H Pulse Rate [ 117 H From Monitor] Respiratory 18 20 17 Rate Blood Pressure 106/61 106/61 106/61 O2 Sat by Pulse 100 100 100 Oximetry 10/28/21 10/28/21 10/28/21 04:10 04:20 04:30 Temperature Pulse Rate 116 H 109 H 113 H Pulse Rate [ From Monitor] Respiratory 17 15 16 Rate Blood Pressure 102/66 102/66 102/66 O2 Sat by Pulse 100 100 100 Oximetry 10/28/21 10/28/21 10/28/21 04:40 04:50 05:00 Temperature Pulse Rate 99 H 124 H Pulse Rate [ From Monitor] Respiratory 13 13 15 Rate Blood Pressure 92/69 92/69 92/69 O2 Sat by Pulse 100 100 100 Oximetry 10/28/21 10/28/21 10/28/21 05:10 05:20 05:30 Temperature Pulse Rate 108 H 102 H 124 H Pulse Rate [ From Monitor] Respiratory 18 17 18 Rate Blood Pressure 102/67 102/67 102/67 O2 Sat by Pulse 100 100 100 Oximetry 10/28/21 10/28/21 10/28/21 05:40 05:50 06:00 Temperature Pulse Rate 118 H 109 H 122 H Pulse Rate [ From Monitor] Respiratory 17 19 17 Rate Blood Pressure 94/58 94/58 98/62 O2 Sat by Pulse 100 100 100 Oximetry 10/28/21 10/28/21 10/28/21 06:10 06:20 06:30 Temperature Pulse Rate 111 H 116 H Pulse Rate [ From Monitor] Respiratory 17 20 15 Rate Blood Pressure 98/62 98/62 98/62 O2 Sat by Pulse 100 100 95 Oximetry 10/28/21 10/28/21 10/28/21 06:40 06:50 07:00 Temperature Pulse Rate 121 H 101 H 118 H Pulse Rate [ From Monitor] Respiratory 15 17 20 Rate Blood Pressure 112/80 112/80 112/80 O2 Sat by Pulse 100 100 Oximetry 10/28/21 10/28/21 10/28/21 07:10 07:20 07:30 Temperature Pulse Rate 115 H 120 H 111 H Pulse Rate [ From Monitor] Respiratory 18 18 20 Rate Blood Pressure 121/78 121/78 121/78 O2 Sat by Pulse 100 100 100 Oximetry 10/28/21 10/28/21 10/28/21 07:40 07:50 08:00 Temperature 97.5 F L Pulse Rate 124 H 116 H 137 H Pulse Rate [ From Monitor] Respiratory 14 16 20 Rate Blood Pressure 135/102 135/102 135/102 O2 Sat by Pulse 100 100 100 Oximetry 10/28/21 10/28/21 10/28/21 08:10 08:20 08:30 Temperature Pulse Rate 126 H 111 H Pulse Rate [ From Monitor] Respiratory 25 H 15 16 Rate Blood Pressure 96/78 96/78 96/78 O2 Sat by Pulse 100 100 100 Oximetry 10/28/21 10/28/21 10/28/21 08:40 08:50 09:08 Temperature Pulse Rate 136 H 116 H 112 H Pulse Rate [ From Monitor] Respiratory 16 18 Rate Blood Pressure 96/78 96/78 106/57 O2 Sat by Pulse 100 100 Oximetry - Labs CBC & Chem 7: 10/29/21 05:15 10/28/21 15:04 Labs: Abnormal lab results 10/27/21 10/27/21 10/27/21 Range/Units 09:57 14:53 14:53 WBC 12.8 H (4.5-11.0) K/mm3 MCH 27 L (28-32) pg RDW 20.0 H (13.2-15.2) % Creatinine 1.7 H (0.6-1.2) mg/dL POC Glucose 127 H (70-105) mg/dL Medications & Allergies - Medications Allergies/Adverse Reactions: Allergies No Known Allergies Allergy (Verified 10/26/21 10:54) Home Medications: Home Medications Medication Instructions Recorded Confirmed Last Taken Type Furosemide [Lasix] 40 mg PO DAILY #30 tablet 07/10/13 10/27/21 Unknown Rx carvediloL [Coreg] 6.25 mg PO BID #60 tablet 07/10/13 Unknown Rx lisinopriL [Zestril TAB] 2.5 mg PO QDAY #30 tablet 07/10/13 Unknown Rx Albuterol Sulfate [Proventil Hfa] 1 puff IH TID PRN #1 hfa.aer.ad 08/10/20 Unknown Rx Furosemide [Lasix] 20 mg PO QDAY #30 tablet 07/05/21 Unknown Rx Potassium Chloride [K-Dur] 20 meq PO QDAY #30 tab 07/05/21 10/27/21 Unknown Rx Active Medications: Generic Name Dose Route Start Last Admin Trade Name Freq PRN Reason Stop Dose Admin Acetaminophen 650 mg 10/26/21 20:57 Acetaminophen 325 Mg Tab PO Q4H PRN Pain MILD(1-3)/Fever >100.5/ROGERS Albuterol 2.5 mg 10/26/21 21:07 Albuterol 2.5 Mg/3 Ml Nebu IH Q4HRT PRN Wheezing/SOB Apixaban 5 mg 10/27/21 15:00 10/28/21 09:08 Apixaban 5 Mg Tab PO 5 mg Q12HR HENNY Administration Protocol Carvedilol 3.125 mg 10/27/21 22:00 10/28/21 09:08 Carvedilol 3.125 Mg Tab PO 3.125 mg BID HENNY Administration Digoxin 0.25 mg 10/28/21 17:00 Digoxin 0.25 Mg Tab PO DAILY@1700 HENNY Furosemide 40 mg 10/27/21 18:00 10/28/21 06:12 Furosemide 40 Mg/4 Ml Inj IV 40 mg 0600,1800 HENNY Administration Amiodarone HCl 360 mg/ 200 mls @ 33.333 mls/hr 10/26/21 14:00 10/28/21 08:02 Dextrose IV 0.5 mg/min DIRECT HENNY 16.667 mls/hr Administration Protocol 1 MG/MIN Dextrose/Sodium Chloride 1,000 mls @ 50 mls/hr 10/27/21 11:00 10/28/21 06:10 D5/0.45ns IV 50 mls/hr DIRECT HENNY Administration Milrinone Lactate/Dextrose 20 mg in 100 mls @ 8.895 mls/hr 10/27/21 11:00 10/28/21 08:02 Milrinone-D5w 20 Mg/100 Ml IV 0 mcg/kg/min DIRECT HENNY 0 mls/hr Infusion Protocol 0.25 MCG/KG/MIN Metoclopramide HCl 10 mg 10/26/21 20:57 Metoclopramide 10 Mg/2 Ml Inj IV Q6H PRN Nausea And Vomiting Morphine Sulfate 2 mg 10/26/21 20:57 Morphine 2 Mg/1 Ml Inj IV Q4H PRN Pain, Moderate (4-6) Ondansetron HCl 4 mg 10/26/21 20:57 10/27/21 07:54 Ondansetron 4 Mg/2 Ml Inj IV 4 mg Q3H PRN Administration Nausea And Vomiting Oxycodone/Acetaminophen 1 tab 10/26/21 20:57 Oxycodone /Acetaminophen 5-325mg Tab PO Q6H PRN Pain, Moderate (4-6) Sodium Chloride 10 ml 10/26/21 22:00 10/28/21 09:09 Sodium Chloride 0.9% 10 Ml Flush Syringe IV 10 ml BID HENNY Administration Sodium Chloride 10 ml 10/26/21 20:57 Sodium Chloride 0.9% 10 Ml Flush Syringe IV PRN PRN LINE FLUSH Spironolactone 25 mg 10/27/21 11:00 10/28/21 09:08 Spironolactone 25 Mg Tab PO 25 mg QDAY HENNY Administration HEART Score - HEART Score EKG: Non-specific Risk factors: 1-2 risk factors Troponin: 1-3x normal limit - Critical Actions Critical Actions: 4-6 pts:12-16.6% risk of adverse cardiac event. Should be admitted
--- NOTE | 2021-10-28 10:02 | Progress Note ---
Assessment and Plan - Patient Problems (1) Acute systolic CHF (congestive heart failure) Current Visit: No Status: Chronic Plan to address problem: Patient presents with shortness of breath, increased abdominal girth and lower extremity edema. Echocardiogram shows a severe four-chamber dilated cardiomyopathy. This likely represents a recurrence of the patient's nonischemic cardiomyopathy which was first diagnosed in 2013 and quickly improved on guideline directed medical therapy. Continue current medical therapy as tolerated. (2) Atrial fibrillation with RVR Current Visit: Yes Status: Acute Plan to address problem: We will switch intravenous to oral amiodarone. Subjective Date of service: 10/28/21 Principal diagnosis: Rapid atrial fibrillation, acute systolic heart failure Interval history: Patient's symptoms of shortness of breath and abdominal fullness are improving. 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 Unfortunately, due to borderline blood pressures, unable to tolerate milrinone infusion, and optimal doses of afterload agents. Objective Vital Signs Temp Pulse Pulse Resp BP Pulse Ox 10/28/21 09:08 112 H 106/57 10/28/21 08:50 116 H 18 96/78 100 10/28/21 08:40 136 H 16 96/78 100 10/28/21 08:30 111 H 16 96/78 100 10/28/21 08:20 15 96/78 100 10/28/21 08:10 126 H 25 H 96/78 100 10/28/21 08:00 97.5 F L 137 H 20 135/102 100 10/28/21 07:50 116 H 16 135/102 100 10/28/21 07:40 124 H 14 135/102 100 10/28/21 07:30 111 H 20 121/78 100 10/28/21 07:20 120 H 18 121/78 100 10/28/21 07:10 115 H 18 121/78 100 10/28/21 07:00 118 H 20 112/80 100 10/28/21 06:50 101 H 17 112/80 10/28/21 06:40 121 H 15 112/80 100 10/28/21 06:30 116 H 15 98/62 95 10/28/21 06:20 20 98/62 100 10/28/21 06:10 111 H 17 98/62 100 10/28/21 06:00 122 H 17 98/62 100 10/28/21 05:50 109 H 19 94/58 100 10/28/21 05:40 118 H 17 94/58 100 02 05:30 124 H 18 102/67 100 10/28/21 05:20 102 H 17 102/67 100 10/28/21 05:10 108 H 18 102/67 100 10/28/21 05:00 124 H 15 92/69 100 10/28/21 04:50 99 H 13 92/69 100 10/28/21 04:40 13 92/69 100 10/28/21 04:30 113 H 16 102/66 100 10/28/21 04:20 109 H 15 102/66 100 10/28/21 04:10 116 H 17 102/66 100 10/28/21 04:00 107 H 117 H 17 106/61 100 10/28/21 03:50 121 H 20 106/61 100 10/28/21 03:40 96 H 18 106/61 100 10/28/21 03:31 97.4 F L 10/28/21 03:30 115 H 20 106/61 100 10/28/21 03:20 119 H 18 92/64 99 10/28/21 03:10 108 H 17 92/64 100 10/28/21 03:00 114 H 17 94/68 100 02 02:50 126 H 20 100 10/28/21 02:40 122 H 20 94/68 100 10/28/21 02:30 99 H 15 98/80 95 02 02:20 131 H 14 98/80 100 10/28/21 02:10 108 H 15 98/80 100 10/28/21 02:00 134 H 20 90/66 10/28/21 01:50 120 H 20 90/66 10/28/21 01:40 121 H 14 90/66 48 L 02 01:30 112 H 9 L 91/58 100 02 01:20 116 H 19 91/58 100 10/28/21 01:10 97 H 17 91/58 100 02 01:00 111 H 16 98/68 100 02 00:50 119 H 16 98/68 100 02 00:40 95 H 17 98/68 100 02 00:30 112 H 17 104/53 100 10/28/21 00:20 103 H 16 104/53 100 10/28/21 00:10 109 H 17 104/53 100 10/28/21 00:00 131 H 18 90/69 100 10/27/21 23:50 104 H 20 90/69 100 10/27/21 23:46 107 H 19 90/69 100 10/27/21 23:40 97.5 F L 120 H 17 90/69 100 10/27/21 23:30 101 H 19 94/73 100 10/27/21 23:20 126 H 19 94/73 100 10/27/21 23:10 126 H 18 94/73 100 10/27/21 23:00 111 H 19 74/60 100 10/27/21 22:50 112 H 18 74/60 10/27/21 22:40 119 H 14 74/60 99 10/27/21 22:30 18 92/73 100 10/27/21 22:20 126 H 10 L 92/73 100 10/27/21 22:10 128 H 18 92/73 100 10/27/21 22:00 117 H 16 105/67 100 10/27/21 21:50 97 H 17 105/67 100 10/27/21 21:40 114 H 17 105/67 100 10/27/21 21:30 114 H 18 99/69 100 10/27/21 21:20 115 H 17 99/69 100 10/27/21 21:10 98 H 17 99/69 100 10/27/21 21:00 109 H 17 98/77 100 10/27/21 20:50 126 H 21 98/77 100 10/27/21 20:40 107 H 11 L 73/24 100 10/27/21 20:30 130 H 13 93/72 100 10/27/21 20:20 126 H 15 93/72 100 10/27/21 20:10 117 H 18 103/68 100 10/27/21 20:00 97.3 F L 129 H 105 H 32 H 100/73 100 10/27/21 19:50 97 H 16 93/72 10/27/21 19:40 115 H 21 93/72 99 10/27/21 19:30 91 H 18 86/71 100 10/27/21 19:20 115 H 18 86/71 100 10/27/21 19:10 105 H 20 86/71 99 10/27/21 19:00 111 H 20 90/60 10/27/21 18:50 125 H 16 90/60 100 10/27/21 18:40 21 90/70 96 10/27/21 18:30 118 H 14 108/82 100 10/27/21 18:20 101 H 21 108/82 100 10/27/21 18:10 103 H 22 108/82 100 10/27/21 18:00 125 H 21 133/50 100 10/27/21 17:50 113 H 21 133/50 100 10/27/21 17:40 115 H 21 133/50 100 10/27/21 17:30 127 H 15 138/86 10/27/21 17:20 124 H 23 138/86 100 10/27/21 17:10 114 H 21 138/86 100 10/27/21 17:00 113 H 16 97/69 100 10/27/21 16:50 120 H 15 97/69 100 10/27/21 16:40 106 H 17 97/69 10/27/21 16:30 120 H 15 97/69 10/27/21 16:20 93 H 18 97/69 100 10/27/21 16:10 112 H 16 97/69 100 10/27/21 16:00 112 H 113 H 15 97/37 100 10/27/21 15:50 106 H 16 97/37 100 10/27/21 15:40 112 H 15 97/37 100 10/27/21 15:30 132 H 17 97/77 100 10/27/21 15:20 134 H 17 97/77 10/27/21 15:10 118 H 17 97/77 99 10/27/21 15:00 121 H 17 117/83 100 10/27/21 14:50 101 H 17 117/83 10/27/21 14:40 117 H 18 117/83 10/27/21 14:30 126 H 18 117/83 100 10/27/21 14:20 121 H 21 99/72 10/27/21 14:10 20 127/83 100 10/27/21 14:00 119 H 20 127/83 100 10/27/21 13:50 110 H 17 127/83 10/27/21 13:40 114 H 18 127/83 100 10/27/21 13:30 115 H 22 105/77 94 07/01/22 13:20 104 H 22 105/77 10/27/21 13:10 121 H 18 105/77 10/27/21 13:00 118 H 24 105/84 99 10/27/21 12:50 106 H 25 H 105/84 99 10/27/21 12:40 111 H 20 105/84 10/27/21 12:36 95.6 F L 10/27/21 12:30 129 H 22 105/84 100 10/27/21 12:20 95 H 22 107/83 10/27/21 12:10 115 H 22 107/83 10/27/21 12:00 121 H 24 107/83 10/27/21 11:50 109 H 25 H 99/79 10/27/21 11:40 110 H 25 H 99/79 10/27/21 11:30 113 H 20 99/81 100 10/27/21 11:24 106 H 99/81 10/27/21 11:23 112 H 99/81 10/27/21 11:20 111 H 27 H 99/81 10/27/21 11:10 110 H 24 99/81 84 10/27/21 11:00 121 H 23 99/81 10/27/21 10:50 110 H 26 H 100/73 99 10/27/21 10:40 113 H 26 H 100/73 10/27/21 10:30 115 H 26 H 100/73 10/27/21 10:20 105 H 14 97/76 10/27/21 10:10 101 H 30 H 97/76 - Physical Examination HEENT: Positive: PERRL Neck: Positive: neck supple Cardiac: Positive: irregularly irregular Lungs: Positive: Decreased Breath Sounds Neuro: Positive: Grossly Intact Abdomen: Positive: Soft Skin: Positive: Clear Extremities: Present: +1 Edema - Labs and Meds CBC 10/27/21 Range/Units 14:53 WBC 12.8 H (4.5-11.0) K/mm3 RBC 4.67 (3.65-5.03) M/mm3 Hgb 12.6 (10.1-14.3) gm/dl Hct 39.0 (30.3-42.9) % Plt Count 225 (140-440) K/mm3 Comprehensive Metabolic Panel 10/27/21 Range/Units 14:53 Creatinine 1.7 H (0.6-1.2) mg/dL - Imaging and Cardiology EKG: report reviewed (Christiana webb with [facility])
[2021-10-28] MEDS: AMIODARONE 200 MG TAB PO SCH ×2 (11:17→22:03)
[2021-10-28] MEDS: METOPROLOL TARTRATE 5 MG/5 ML INJ IV PRN ×2 (14:30→23:48)
[2021-10-28 15:29] LABS: Albumin 3.3 g/dL (3.9-5); Calcium 8.2 mg/dL (8.4-10.2)
[2021-10-28] MEDS: DIGOXIN 0.25 MG TAB PO SCH (17:21)
[2021-10-28] MEDS: ONDANSETRON 4 MG/2 ML INJ IV PRN (17:22)
[2021-10-29 05:50] LABS: Hematocrit 39.3 % (30.3-42.9); Hemoglobin 12.4 gm/dl (10.1-14.3); Mean Corpuscular HGB Conc 32 % (30-34); Mean Corpuscular Volume 82 fl (79-97); Platelet Count 247 K/mm3 (140-440); Red Blood Count 4.81 M/mm3 (3.65-5.03); Red Cell Distribution Width 18.9 % (13.2-15.2)
[2021-10-29] MEDS: FUROSEMIDE 40 MG/4 ML INJ IV SCH ×2 (06:47→17:11)
[2021-10-29] MEDS: METOPROLOL TARTRATE 5 MG/5 ML INJ IV PRN (08:08)
--- NOTE | 2021-10-29 08:17 | Progress Note ---
Assessment and Plan Assessment and plan: History of present illness: Patient is a 51-year-old female with history of CHF and hypertension sent from primary care office for evaluation of A. fib with RVR. She denies past history of arrhythmia. Denies shortness of breath or chest pain. Has been palpitations no diaphoresis. No exacerbating or relieving factors. No orthopnea. Hospital Course: 10/27: Severe dilated cardiomyopathy with EF 15%. Started on IV milrinone and IV diuretics. Abd US ordered to evaluate abdominal ascites. Patient to continue amiodorone IV for afib tx. 10/28: Milrinone held this AM. HR remains elevated in 100-110's. Continuing amiodorone IV and digoxin. Ordered digoxin level. Will be important to track this in light of renal insufficiency. 10/29: Heart rate under better control. Milrinone discontinued. Continue rate/control with amiodarone, metoprolol and digoxin. Digoxin level 0.6. Renal function stable, recent creatinine 1.4. Continued Aggressive diuresis. Can downgrade to telemetry floor. Possible discharge in next 24 to 48 hours. Assessment and Plan: #Atrial fibrillation with rapid ventricular response -c/o palpitations. - ekg: afib rvr, ventricular rate: 178 bpm in ER - new onset. -Discontinue amiodorone IV. Amiodarone 200 mg p.o. twice daily started. Milrinone discontinued - started on meteprolol, digoxin for rate control. -check digoxin level - started apixiaban for AC, chads > 2. -cardiology consultation #Acute systolic heart failure -ECHO shows dilated CMP, EF 15%. - IV diuretics: Lasix 40 mg IV twice daily. - GDMT: metoprolol, aldactone -cardiology following #Acute kidney injury - 0.9 on admission, inc to 1.4 - hold francisca-i and lasix at this time - gentle IVF 500 cc at 75. #Hyperkalemia - K=5.1 - d/c K supplement at this time. #Hypertension - metoprolol only for now - patient hypotensive overnight #Morbid Obesity - BMI - Counseled patient on the importance of weight loss, incorporating exercise, and dietary changes (lean meats, fresh fruits and vegetables, and water intake). Patient expresses understanding. - Time: +15 min #Preventative health care - preventative health counseling regarding management of life stressors, medication compliance and overall effect of chronic medical conditions on overall health. Encourage patient to follow up closely with with OP providers +30 minutes. The high probability of a clinically significant, sudden or life threatening deterioration of the [multi] system(s) required my full and direct attention, intervention and personal management. The aggregate critical care time was [60] minutes. This time is in addition to time spent performing reported procedures but includes the following: [x] Data Review and interpretation [x] Patient assessment and monitoring of vital signs [x] Documentation [x] Medication orders and management History Interval history: No acute overnight events. No acute complaints this AM. Hospitalist Physical - Physical exam Narrative exam: Physical Exam: VITAL SIGNS: Reviewed. GENERAL: The patient appears normally developed, Vital signs as documented. HEAD: No signs of head trauma. EYES: Pupils are equal. Extraocular motions intact. EARS: Hearing grossly intact. MOUTH: Oropharynx is normal. NECK: No adenopathy, no JVD. CHEST: Chest with clear breath sounds bilaterally. No wheezes, rales, or rhonchi. CARDIAC: tachycardia, irregular rhythm. S1 and S2, without murmurs, gallops, or rubs. VASCULAR: No Edema. Peripheral pulses normal and equal in all extremities. ABDOMEN: Soft, non tender and non distended. No rebound or guarding, and no masses palpated. Bowel Sounds normal. MUSCULOSKELETAL: Good range of motion of all major joints. Extremities without clubbing, cyanosis or edema. NEUROLOGIC EXAM: Alert and oriented x 4. no focal sensory or strength deficits. PSYCHIATRIC: Mood normal. SKIN: detail exam as documented in skin assessment - Constitutional Vitals: Temp Pulse Resp BP Pulse Ox 99.6 F 144 H 22 120/76 100 10/29/21 04:00 10/29/21 08:08 10/29/21 07:22 10/29/21 08:08 10/29/21 07:22 General appearance: Present: no acute distress, well-nourished HEART Score - HEART Score EKG: Non-specific Risk factors: 1-2 risk factors Troponin: 1-3x normal limit - Critical Actions Critical Actions: 4-6 pts:12-16.6% risk of adverse cardiac event. Should be admitted Results - Labs CBC & Chem 7: 10/29/21 05:15 10/28/21 15:04 Labs: Laboratory Last Values WBC 8.2 K/mm3 (4.5-11.0) 10/29/21 05:15 RBC 4.81 M/mm3 (3.65-5.03) 10/29/21 05:15 Hgb 12.4 gm/dl (10.1-14.3) 10/29/21 05:15 Hct 39.3 % (30.3-42.9) 10/29/21 05:15 MCV 82 fl (79-97) 10/29/21 05:15 MCH 26 pg (28-32) L 10/29/21 05:15 MCHC 32 % (30-34) 10/29/21 05:15 RDW 18.9 % (13.2-15.2) H 10/29/21 05:15 Plt Count 247 K/mm3 (140-440) 10/29/21 05:15 Lymph % (Auto) 16.0 % (13.4-35.0) 10/27/21 04:33 [place] % (Auto) 5.8 % (0.0-7.3) 10/27/21 04:33 Eos % (Auto) 0.0 % (0.0-4.3) 10/27/21 04:33 Baso % (Auto) 0.1 % (0.0-1.8) 10/27/21 04:33 Lymph # (Auto) 1.8 K/mm3 (1.2-5.4) 10/27/21 04:33 [place] # (Auto) 0.7 K/mm3 (0.0-0.8) 10/27/21 04:33 Eos # (Auto) 0.0 K/mm3 (0.0-0.4) 10/27/21 04:33 Baso # (Auto) 0.0 K/mm3 (0.0-0.1) 10/27/21 04:33 Seg Neutrophils % 78.1 % (40.0-70.0) H 10/27/21 04:33 Seg Neutrophils # 9.0 K/mm3 (1.8-7.7) H 10/27/21 04:33 Sodium 135 mmol/L (137-145) L 10/28/21 15:04 Potassium 3.7 mmol/L (3.6-5.0) D 10/28/21 15:04 Chloride 100.5 mmol/L (98-107) 10/28/21 15:04 Carbon Dioxide 22 mmol/L (22-30) D 10/28/21 15:04 Anion Gap 16 mmol/L 10/28/21 15:04 BUN 59 mg/dL (7-17) H 10/28/21 15:04 Creatinine 1.4 mg/dL (0.6-1.2) H 10/28/21 15:04 Estimated GFR 48 ml/min 10/28/21 15:04 BUN/Creatinine Ratio 42 % 10/28/21 15:04 Glucose 156 mg/dL (65-100) H 10/28/21 15:04 POC Glucose 127 mg/dL (70-105) H 10/27/21 09:57 Calcium 8.2 mg/dL (8.4-10.2) L 10/28/21 15:04 Phosphorus 3.40 mg/dL (2.5-4.5) 10/28/21 15:04 Magnesium 1.90 mg/dL (1.7-2.3) 10/28/21 15:04 Total Bilirubin 0.80 mg/dL (0.1-1.2) 10/28/21 15:04 AST 166 units/L (5-40) H 10/28/21 15:04 ALT 217 units/L (7-56) H 10/28/21 15:04 Alkaline Phosphatase 96 units/L (35-129) 10/28/21 15:04 Total Protein 5.7 g/dL (6.3-8.2) L 10/28/21 15:04 Albumin 3.3 g/dL (3.9-5) L 10/28/21 15:04 Albumin/Globulin Ratio 1.4 % 10/28/21 15:04 Digoxin 0.6 ng/mL (0.9-2.0) L 10/28/21 15:04 Mcmahon/IV: Voiding Method External Female Catheter Active Medications - Current Medications Current Medications: Generic Name Dose Route Start Last Admin Trade Name Freq PRN Reason Stop Dose Admin Acetaminophen 650 mg 10/26/21 20:57 Acetaminophen 325 Mg Tab PO Q4H PRN Pain MILD(1-3)/Fever >100.5/ROGERS Albuterol 2.5 mg 10/26/21 21:07 Albuterol 2.5 Mg/3 Ml Nebu IH Q4HRT PRN Wheezing/SOB Amiodarone HCl 200 mg 10/28/21 11:00 10/28/21 22:03 Amiodarone 200 Mg Tab PO 200 mg BID HENNY Administration Apixaban 5 mg 10/27/21 15:00 10/28/21 22:03 Apixaban 5 Mg Tab PO 5 mg Q12HR HENNY Administration Protocol Carvedilol 3.125 mg 10/27/21 22:00 10/28/21 22:03 Carvedilol 3.125 Mg Tab PO 3.125 mg BID HENNY Administration Digoxin 0.25 mg 10/28/21 17:00 10/28/21 17:21 Digoxin 0.25 Mg Tab PO 0.25 mg DAILY@1700 HENNY Administration Furosemide 40 mg 10/27/21 18:00 10/29/21 06:47 Furosemide 40 Mg/4 Ml Inj IV 40 mg 0600,1800 HENNY Administration Milrinone Lactate/Dextrose 20 mg in 100 mls @ 4.448 mls/hr 10/27/21 11:00 10/28/21 12:38 Milrinone-D5w 20 Mg/100 Ml IV 10/31/21 11:00 0 mcg/kg/min DIRECT HENNY 0 mls/hr Infusion Protocol 0.125 MCG/KG/MIN Metoclopramide HCl 10 mg 10/26/21 20:57 Metoclopramide 10 Mg/2 Ml Inj IV Q6H PRN Nausea And Vomiting Metoprolol Tartrate 2.5 mg 10/28/21 13:55 10/29/21 08:08 Metoprolol Tartrate 5 Mg/5 Ml Inj IV 2.5 mg Q6HR PRN Administration Blood Pressure Morphine Sulfate 2 mg 10/26/21 20:57 Morphine 2 Mg/1 Ml Inj IV Q4H PRN Pain, Moderate (4-6) Ondansetron HCl 4 mg 10/26/21 20:57 10/28/21 17:22 Ondansetron 4 Mg/2 Ml Inj IV 4 mg Q3H PRN Administration Nausea And Vomiting Oxycodone/Acetaminophen 1 tab 10/26/21 20:57 Oxycodone /Acetaminophen 5-325mg Tab PO Q6H PRN Pain, Moderate (4-6) Sodium Chloride 10 ml 10/26/21 22:00 10/29/21 06:47 Sodium Chloride 0.9% 10 Ml Flush Syringe IV 10 ml BID HENNY Administration Sodium Chloride 10 ml 10/26/21 20:57 Sodium Chloride 0.9% 10 Ml Flush Syringe IV PRN PRN LINE FLUSH Spironolactone 25 mg 10/27/21 11:00 10/28/21 09:08 Spironolactone 25 Mg Tab PO 25 mg QDAY HENNY Administration
[2021-10-29] MEDS: carvediloL 3.125 MG TAB PO SCH ×2 (09:00→21:22)
[2021-10-29] MEDS: AMIODARONE 200 MG TAB PO SCH ×2 (09:49→21:24)
[2021-10-29] MEDS: APIXABAN 5 MG TAB PO SCH ×2 (09:49→21:20)
--- NOTE | 2021-10-29 10:34 | Progress Note ---
Assessment and Plan 51 y/o, obese female admitted with dyspnea, afib and found to be in acute systolic heart failure exacerbation. 10/28/21: Will talk to card about other means for rate control. Continue milrinone. Guarded prognosis. 1. RAte control 2. Anticoagulation 3. HF therapy 4. Trend LFT's 5. Cards had suggested abdominal ultrasound but with EF being 15 will cancel Guarded prognosis. CCT 31 minutes. Subjective Date of service: 10/29/21 Principal diagnosis: Rapid atrial fibrillation, acute systolic heart failure Interval history: Still not rate controlled. Still on IV amio. Still on milrinone. BP stable. Objective - Constitutional Vitals: Vital Signs - 12hr 10/28/21 10/28/21 10/29/21 23:00 23:48 00:00 Temperature 100.5 F H Pulse Rate 103 H 143 H Pulse Rate [ 103 H From Monitor] Respiratory 21 Rate Blood Pressure 107/76 O2 Sat by Pulse 100 Oximetry 10/29/21 10/29/21 10/29/21 04:00 05:50 05:52 Temperature 99.6 F Pulse Rate 139 H 147 H Pulse Rate [ 123 H From Monitor] Respiratory 22 19 16 Rate Blood Pressure 97/66 97/66 O2 Sat by Pulse 98 100 100 Oximetry 10/29/21 10/29/21 10/29/21 05:54 05:56 05:58 Temperature Pulse Rate 150 H 131 H 134 H Pulse Rate [ From Monitor] Respiratory 22 23 29 H Rate Blood Pressure 97/66 97/66 97/66 O2 Sat by Pulse 98 99 100 Oximetry 10/29/21 10/29/21 10/29/21 06:00 06:01 06:02 Temperature Pulse Rate 141 H 136 H 131 H Pulse Rate [ From Monitor] Respiratory 36 H 52 H 47 H Rate Blood Pressure 97/66 96/76 96/76 O2 Sat by Pulse 100 99 100 Oximetry 10/29/21 10/29/21 10/29/21 06:04 06:06 06:08 Temperature Pulse Rate 157 H 139 H 134 H Pulse Rate [ From Monitor] Respiratory 20 20 31 H Rate Blood Pressure 96/76 96/76 96/76 O2 Sat by Pulse 100 100 99 Oximetry 10/29/21 10/29/21 10/29/21 06:10 06:12 06:14 Temperature Pulse Rate 136 H 153 H 135 H Pulse Rate [ From Monitor] Respiratory 42 H 34 H 20 Rate Blood Pressure 96/76 96/76 96/76 O2 Sat by Pulse 100 97 100 Oximetry 10/29/21 10/29/21 10/29/21 06:16 06:18 06:20 Temperature Pulse Rate 127 H 115 H 141 H Pulse Rate [ From Monitor] Respiratory 25 H 21 24 Rate Blood Pressure 96/76 96/76 96/76 O2 Sat by Pulse 100 100 99 Oximetry 10/29/21 10/29/21 10/29/21 06:22 06:24 06:26 Temperature Pulse Rate 147 H 135 H 131 H Pulse Rate [ From Monitor] Respiratory 20 25 H 29 H Rate Blood Pressure 97/66 97/66 97/66 O2 Sat by Pulse 100 100 100 Oximetry 10/29/21 10/29/21 10/29/21 06:28 06:30 06:32 Temperature Pulse Rate 140 H 148 H 140 H Pulse Rate [ From Monitor] Respiratory 21 19 18 Rate Blood Pressure 97/66 100/78 100/78 O2 Sat by Pulse 100 100 100 Oximetry 10/29/21 10/29/21 10/29/21 06:34 06:36 06:38 Temperature Pulse Rate 146 H 150 H 148 H Pulse Rate [ From Monitor] Respiratory 23 30 H 23 Rate Blood Pressure 100/78 100/78 100/78 O2 Sat by Pulse 100 98 100 Oximetry 10/29/21 10/29/21 10/29/21 06:40 06:41 06:42 Temperature Pulse Rate 139 H 124 H 144 H Pulse Rate [ From Monitor] Respiratory 27 H 30 H 29 H Rate Blood Pressure 100/78 100/78 100/78 O2 Sat by Pulse 100 99 99 Oximetry 10/29/21 10/29/21 10/29/21 06:44 06:46 06:48 Temperature Pulse Rate 146 H 152 H 151 H Pulse Rate [ From Monitor] Respiratory 51 H 39 H 42 H Rate Blood Pressure 100/78 100/78 100/78 O2 Sat by Pulse 100 99 99 Oximetry 10/29/21 10/29/21 10/29/21 06:50 06:52 06:54 Temperature Pulse Rate 124 H 121 H 155 H Pulse Rate [ From Monitor] Respiratory 29 H 21 23 Rate Blood Pressure 100/78 100/78 100/78 O2 Sat by Pulse 100 100 100 Oximetry 10/29/21 10/29/2122 06:56 06:58 07:00 Temperature Pulse Rate 155 H 126 H 144 H Pulse Rate [ From Monitor] Respiratory 18 20 15 Rate Blood Pressure 100/78 100/78 100/78 O2 Sat by Pulse 100 100 100 Oximetry 10/29/21 10/29/21 10/29/21 07:02 07:03 07:04 Temperature Pulse Rate 110 H 137 H 150 H Pulse Rate [ From Monitor] Respiratory 14 22 18 Rate Blood Pressure 116/83 116/83 116/83 O2 Sat by Pulse 100 100 100 Oximetry 10/29/21 10/29/21 10/29/21 07:06 07:08 07:10 Temperature Pulse Rate 139 H 130 H 133 H Pulse Rate [ From Monitor] Respiratory 17 17 17 Rate Blood Pressure 116/83 116/83 116/83 O2 Sat by Pulse 100 100 100 Oximetry 10/29/21 10/29/21 10/29/21 07:12 07:14 07:16 Temperature Pulse Rate 147 H 146 H 149 H Pulse Rate [ From Monitor] Respiratory 11 L 13 20 Rate Blood Pressure 116/83 116/83 116/83 O2 Sat by Pulse 100 100 100 Oximetry 10/29/21 10/29/21 10/29/21 07:18 07:20 07:22 Temperature Pulse Rate 142 H 136 H 115 H Pulse Rate [ From Monitor] Respiratory 18 21 22 Rate Blood Pressure 116/83 116/83 116/83 O2 Sat by Pulse 100 100 100 Oximetry 10/29/21 10/29/21 08:08 09:00 Temperature Pulse Rate 144 H 121 H Pulse Rate [ From Monitor] Respiratory Rate Blood Pressure 120/76 103/67 O2 Sat by Pulse Oximetry - Labs CBC & Chem 7: 10/29/21 05:15 10/28/21 15:04 Labs: Abnormal lab results 10/28/21 10/28/21 10/29/21 Range/Units 15:04 15:04 05:15 MCH 26 L (28-32) pg RDW 18.9 H (13.2-15.2) % Sodium 135 L (137-145) mmol/L BUN 59 H (7-17) mg/dL Creatinine 1.4 H (0.6-1.2) mg/dL Glucose 156 H (65-100) mg/dL Calcium 8.2 L (8.4-10.2) mg/dL AST 166 H (5-40) units/L ALT 217 H (7-56) units/L Total Protein 5.7 L (6.3-8.2) g/dL Albumin 3.3 L (3.9-5) g/dL Digoxin 0.6 L (0.9-2.0) ng/mL Medications & Allergies - Medications Allergies/Adverse Reactions: Allergies No Known Allergies Allergy (Verified 10/26/21 10:54) Home Medications: Home Medications Medication Instructions Recorded Confirmed Last Taken Type Furosemide [Lasix] 40 mg PO DAILY #30 tablet 07/10/13 10/27/21 Unknown Rx carvediloL [Coreg] 6.25 mg PO BID #60 tablet 07/10/13 Unknown Rx lisinopriL [Zestril TAB] 2.5 mg PO QDAY #30 tablet 07/10/13 Unknown Rx Albuterol Sulfate [Proventil Hfa] 1 puff IH TID PRN #1 hfa.aer.ad 08/10/20 Unknown Rx Furosemide [Lasix] 20 mg PO QDAY #30 tablet 07/05/21 Unknown Rx Potassium Chloride [K-Dur] 20 meq PO QDAY #30 tab 07/05/21 10/27/21 Unknown Rx Active Medications: Generic Name Dose Route Start Last Admin Trade Name Freq PRN Reason Stop Dose Admin Acetaminophen 650 mg 10/26/21 20:57 Acetaminophen 325 Mg Tab PO Q4H PRN Pain MILD(1-3)/Fever >100.5/ROGERS Albuterol 2.5 mg 10/26/21 21:07 Albuterol 2.5 Mg/3 Ml Nebu IH Q4HRT PRN Wheezing/SOB Amiodarone HCl 200 mg 10/28/21 11:00 10/29/21 09:49 Amiodarone 200 Mg Tab PO 200 mg BID HENNY Administration Apixaban 5 mg 10/27/21 15:00 10/29/21 09:49 Apixaban 5 Mg Tab PO 5 mg Q12HR HENNY Administration Protocol Carvedilol 3.125 mg 10/27/21 22:00 10/29/21 09:00 Carvedilol 3.125 Mg Tab PO 3.125 mg BID HENNY Administration Digoxin 0.25 mg 10/28/21 17:00 10/28/21 17:21 Digoxin 0.25 Mg Tab PO 0.25 mg DAILY@1700 HENNY Administration Furosemide 40 mg 10/27/21 18:00 10/29/21 06:47 Furosemide 40 Mg/4 Ml Inj IV 40 mg 0600,1800 HENNY Administration Milrinone Lactate/Dextrose 20 mg in 100 mls @ 4.448 mls/hr 10/27/21 11:00 10/29/21 08:19 Milrinone-D5w 20 Mg/100 Ml IV 10/31/21 11:00 0.125 mcg/kg/min DIRECT HENNY 4.448 mls/hr Infusion Protocol 0.125 MCG/KG/MIN Metoclopramide HCl 10 mg 10/26/21 20:57 Metoclopramide 10 Mg/2 Ml Inj IV Q6H PRN Nausea And Vomiting Metoprolol Tartrate 2.5 mg 10/28/21 13:55 10/29/21 08:08 Metoprolol Tartrate 5 Mg/5 Ml Inj IV 2.5 mg Q6HR PRN Administration Blood Pressure Morphine Sulfate 2 mg 10/26/21 20:57 Morphine 2 Mg/1 Ml Inj IV Q4H PRN Pain, Moderate (4-6) Ondansetron HCl 4 mg 10/26/21 20:57 10/28/21 17:22 Ondansetron 4 Mg/2 Ml Inj IV 4 mg Q3H PRN Administration Nausea And Vomiting Oxycodone/Acetaminophen 1 tab 10/26/21 20:57 Oxycodone /Acetaminophen 5-325mg Tab PO Q6H PRN Pain, Moderate (4-6) Sodium Chloride 10 ml 10/26/21 22:00 10/29/21 09:50 Sodium Chloride 0.9% 10 Ml Flush Syringe IV 10 ml BID HENNY Administration Sodium Chloride 10 ml 10/26/21 20:57 Sodium Chloride 0.9% 10 Ml Flush Syringe IV PRN PRN LINE FLUSH Spironolactone 25 mg 10/27/21 11:00 10/28/21 09:08 Spironolactone 25 Mg Tab PO 25 mg QDAY HENNY Administration HEART Score - HEART Score EKG: Non-specific Risk factors: 1-2 risk factors Troponin: 1-3x normal limit - Critical Actions Critical Actions: 4-6 pts:12-16.6% risk of adverse cardiac event. Should be admitted
[2021-10-29] MEDS: SPIRONOLACTONE 25 MG TAB PO SCH (12:13)
--- NOTE | 2021-10-29 12:58 | Progress Note ---
Assessment and Plan - Patient Problems (1) Acute systolic CHF (congestive heart failure) Current Visit: No Status: Chronic Plan to address problem: Patient presents with shortness of breath, increased abdominal girth and lower extremity edema. Echocardiogram showed a severe four-chamber dilated cardiomyopathy representing a recurrence of the patient's history of nonischemic cardiomyopathy. With aggressive diuretics the abdominal distention is resolved, there is no further edema and shortness of breath is much improved. (2) Atrial fibrillation with RVR Current Visit: Yes Status: Acute Plan to address problem: Still has atrial fibrillation, with better rate control on beta-blockers and digitalis. Oral anticoagulation with Eliquis. Subjective Date of service: 10/29/21 Principal diagnosis: Rapid atrial fibrillation, acute systolic heart failure Interval history: Patient looks and feels better, abdominal distention is resolved, there is no further edema and shortness of breath is much improved. Still has atrial fibrillation, with better rate control on beta-blockers and digitalis. Unfortunately, she is unable to tolerate intravenous milrinone as a result of low normal blood pressures, but has effected a robust diuresis with intravenous furosemide. Objective Vital Signs Temp Pulse Pulse Resp BP Pulse Ox 10/29/21 12:13 143 H 110/80 10/29/21 12:00 143 H 24 91/59 93 10/29/21 11:00 136 H 20 110/80 97 10/29/21 10:00 137 H 20 121/73 84 10/29/21 09:00 119 H 28 H 104/77 93 10/29/21 08:08 144 H 120/76 10/29/21 08:00 98.0 F 137 H 23 123/43 100 10/29/21 07:22 115 H 22 116/83 100 10/29/21 07:20 136 H 21 116/83 100 10/29/21 07:18 142 H 18 116/83 100 10/29/21 07:16 149 H 20 116/83 100 10/29/21 07:14 146 H 13 116/83 100 10/29/21 07:12 147 H 11 L 116/83 100 10/29/21 07:10 133 H 17 116/83 100 10/29/21 07:08 130 H 17 116/83 100 10/29/21 07:06 139 H 17 116/83 100 10/29/21 07:04 150 H 18 116/83 100 10/29/21 07:03 137 H 22 116/83 100 10/29/21 07:02 110 H 14 116/83 100 10/29/21 07:00 144 H 15 100/78 100 10/29/21 06:58 126 H 20 100/78 100 10/29/21 06:56 155 H 18 100/78 100 10/29/21 06:54 155 H 23 100/78 100 10/29/21 06:52 121 H 21 100/78 100 10/29/21 06:50 124 H 29 H 100/78 100 10/29/21 06:48 151 H 42 H 100/78 99 10/29/21 06:46 152 H 39 H 100/78 99 10/29/21 06:44 146 H 51 H 100/78 100 10/29/21 06:42 144 H 29 H 100/78 99 10/29/21 06:41 124 H 30 H 100/78 99 10/29/21 06:40 139 H 27 H 100/78 100 10/29/21 06:38 148 H 23 100/78 100 10/29/21 06:36 150 H 30 H 100/78 98 10/29/21 06:34 146 H 23 100/78 100 10/29/21 06:32 140 H 18 100/78 100 10/29/21 06:30 148 H 19 100/78 100 10/29/21 06:28 140 H 21 97/66 100 10/29/21 06:26 131 H 29 H 97/66 100 10/29/21 06:24 135 H 25 H 97/66 100 10/29/21 06:22 147 H 20 97/66 100 10/29/21 06:20 141 H 24 96/76 99 10/29/21 06:18 115 H 21 96/76 100 10/29/21 06:16 127 H 25 H 96/76 100 10/29/21 06:14 135 H 20 96/76 100 10/29/21 06:12 153 H 34 H 96/76 97 10/29/21 06:10 136 H 42 H 96/76 100 10/29/21 06:08 134 H 31 H 96/76 99 10/29/21 06:06 139 H 20 96/76 100 10/29/21 06:04 157 H 20 96/76 100 10/29/21 06:02 131 H 47 H 96/76 100 10/29/21 06:01 136 H 52 H 96/76 99 10/29/21 06:00 141 H 36 H 97/66 100 10/29/21 05:58 134 H 29 H 97/66 100 10/29/21 05:56 131 H 23 97/66 99 10/29/21 05:54 150 H 22 97/66 98 10/29/21 05:52 147 H 16 97/66 100 10/29/21 05:50 139 H 19 97/66 100 10/29/21 04:00 99.6 F 123 H 22 98 10/29/21 00:00 100.5 F H 103 H 21 100 10/28/21 23:48 143 H 107/76 10/28/21 23:00 103 H 10/28/21 22:03 147 H 89/65 10/28/21 21:12 19 92/68 100 10/28/21 21:10 89 19 92/68 100 10/28/21 21:08 111 H 19 92/68 100 10/28/21 21:06 18 92/68 100 10/28/21 21:04 18 92/68 100 10/28/21 21:02 19 92/68 100 10/28/21 21:00 151 H 19 92/68 100 10/28/21 20:58 18 /68 100 10/28/21 20:56 114 H 18 92/68 99 10/28/21 20:54 132 H 16 92/68 100 10/28/21 20:52 128 H 18 92/68 100 10/28/21 20:50 137 H 15 / 99 10/28/21 20:48 125 H 16 92/68 100 10/28/21 20:46 137 H 18 92/68 97 10/28/21 20:44 133 H 21 92/68 98 10/28/21 20:42 116 H 19 92/68 98 10/28/21 20:40 123 H 19 92/68 100 10/28/21 20:38 141 H 19 92/68 98 10/28/21 20:36 126 H 19 92/68 96 10/28/21 20:34 135 H 19 92/68 100 10/28/21 20:32 133 H 19 92/68 99 10/28/21 20:31 110 H 20 92/68 100 07/06/20 20:30 136 H 17 98/76 99 10/28/21 20:28 154 H 21 98/76 97 10/28/21 20:26 150 H 21 98/76 100 07 20:24 120 H 18 98/76 100 10/28/21 20:22 136 H 19 98/76 98 10/28/21 20:20 135 H 23 98/76 99 10/28/21 20:18 129 H 15 98/76 100 07 20:16 146 H 21 98/76 100 07 20:14 138 H 14 98/76 98 07 20:12 112 H 17 98/76 100 07 20:10 136 H 14 98/76 100 10/28/21 20:08 131 H 18 98/76 100 10/28/21 20:06 147 H 19 98/76 100 10/28/21 20:04 146 H 21 98/76 100 10/28/21 20:02 118 H 18 98/76 100 10/28/21 20:00 98.3 F 127 H 127 H 19 98/76 100 10/28/21 19:58 125 H 18 101/82 100 10/28/21 19:56 125 H 17 101/82 100 10/28/21 19:54 116 H 18 101/82 100 10/28/21 19:52 138 H 18 101/82 99 10/28/21 19:50 117 H 18 101/82 100 10/28/21 19:48 147 H 18 101/82 100 10/28/21 19:46 122 H 18 101/82 100 10/28/21 19:44 129 H 18 101/82 100 10/28/21 19:42 102 H 17 101/82 100 10/28/21 19:40 19 101/82 100 10/28/21 19:38 79 17 101/82 100 10/28/21 19:36 126 H 19 101/82 100 10/28/21 18:00 143 H 12 87/56 100 10/28/21 17:58 137 H 16 87/56 100 [id number] 17:56 141 H 17 87/56 100 0702 17:54 125 H 21 87/56 100 10/28/21 17:52 134 H 15 87/56 100 10/28/21 17:50 139 H 21 87/56 100 10/28/21 17:48 146 H 21 87/56 100 10/28/21 17:46 132 H 20 87/56 100 10/28/21 17:44 126 H 17 87/56 100 10/28/21 17:42 133 H 16 87/56 100 10/28/21 17:40 142 H 18 87/56 100 10/28/21 17:38 145 H 23 87/56 99 10/28/21 17:36 128 H 22 87/56 100 10/28/21 17:34 18 87/56 100 10/28/21 17:32 17 100/79 100 10/28/21 17:31 17 100/79 100 10/28/21 17:30 24 87/56 100 10/28/21 17:28 143 H 21 87/56 100 10/28/21 17:26 154 H 14 87/56 100 10/28/21 17:24 18 87/56 100 10/28/21 17:22 141 H 15 87/56 100 10/28/21 17:21 130 H 95/72 10/28/21 17:20 133 H 18 87/56 100 10/28/21 17:18 125 H 18 87/56 100 10/28/21 17:16 154 H 21 87/56 100 10/28/21 17:14 121 H 17 87/56 100 10/28/21 17:12 136 H 15 87/56 100 10/28/21 17:10 147 H 17 87/56 100 10/28/21 17:08 125 H 15 87/56 100 10/28/21 17:06 142 H 22 87/56 100 10/28/21 17:04 137 H 19 87/56 100 10/28/21 17:02 135 H 20 87/56 100 10/28/21 17:01 140 H 22 87/56 100 10/28/21 17:00 131 H 117 H 24 86/64 100 10/28/21 16:58 129 H 15 86/64 100 10/28/21 16:56 117 H 19 86/64 100 10/28/21 16:54 137 H 23 86/64 100 10/28/21 16:52 118 H 21 86/64 99 10/28/21 16:50 147 H 24 86/64 100 10/28/21 16:48 130 H 16 86/64 100 10/28/21 16:46 139 H 25 H 86/64 100 10/28/21 16:44 140 H 23 86/64 100 10/28/21 16:42 138 H 16 86/64 100 10/28/21 16:40 138 H 11 L 86/64 100 10/28/21 16:38 114 H 25 H 86/64 99 10/28/21 16:36 136 H 16 86/64 100 10/28/21 16:34 129 H 13 86/64 100 10/28/21 16:32 131 H 20 86/64 100 10/28/21 16:31 133 H 17 86/67 99 10/28/21 16:30 125 H 21 86/67 100 10/28/21 16:28 145 H 14 103/80 99 10/28/21 16:26 114 H 15 103/80 100 10/28/21 16:24 18 103/80 100 10/28/21 16:22 140 H 15 103/80 100 10/28/21 16:20 123 H 17 103/80 99 10/28/21 16:18 101 H 12 103/80 100 10/28/21 16:16 118 H 17 103/80 100 10/28/21 16:14 118 H 23 103/80 100 10/28/21 16:12 114 H 19 103/80 100 10/28/21 16:10 178 H 19 103/80 100 10/28/21 16:08 161 H 27 H 103/80 99 10/28/21 16:06 137 H 15 103/80 100 10/28/21 16:04 146 H 18 103/80 100 10/28/21 16:02 138 H 24 103/80 100 10/28/21 16:00 97.4 F L 145 H 16 86/64 100 10/28/21 15:58 129 H 17 86/64 100 10/28/21 15:56 146 H 20 86/64 100 10/28/21 15:54 138 H 21 86/64 100 10/28/21 15:52 138 H 21 93/67 100 10/28/21 15:50 133 H 22 93/67 100 10/28/21 15:48 18 93/67 100 10/28/21 15:46 137 H 16 93/67 100 10/28/21 15:44 82 17 93/67 100 10/28/21 15:42 147 H 16 93/67 100 10/28/21 15:40 137 H 15 93/67 100 10/28/21 15:38 120 H 24 93/67 100 10/28/21 15:36 132 H 17 93/67 100 10/28/21 15:34 108 H 16 93/67 100 10/28/21 15:32 120 H 19 93/67 100 10/28/21 15:30 123 H 20 93/67 100 10/28/21 15:28 126 H 19 93/67 100 10/28/21 15:26 122 H 22 93/67 100 10/28/21 15:25 124 H 16 93/67 100 10/28/21 15:24 116 H 20 93/67 100 10/28/21 15:22 123 H 17 93/67 100 10/28/21 15:20 136 H 17 93/67 100 10/28/21 15:18 121 H 19 93/67 100 10/28/21 15:16 127 H 15 93/67 100 10/28/21 15:14 125 H 21 93/67 100 10/28/21 15:12 121 H 22 93/67 100 10/28/21 15:10 133 H 23 93/67 100 10/28/21 15:09 128 H 24 93/67 100 10/28/21 15:08 130 H 19 84/64 100 10/28/21 15:06 127 H 18 84/64 100 10/28/21 15:04 112 H 27 H 84/64 100 10/28/21 15:02 126 H 26 H 84/64 100 10/28/21 15:00 143 H 28 H 84/64 100 10/28/21 14:58 130 H 18 84/64 100 10/28/21 14:56 138 H 14 84/64 100 10/28/21 14:54 125 H 14 84/64 100 10/28/21 14:52 138 H 17 84/64 100 10/28/21 14:50 139 H 15 84/64 100 10/28/21 14:48 130 H 21 84/64 100 10/28/21 14:46 124 H 16 84/64 100 10/28/21 14:44 125 H 22 84/64 100 07/02/22 14:42 126 H 16 84/64 100 10/28/21 14:40 125 H 17 84/64 100 10/28/21 14:38 122 H 15 84/64 100 10/28/21 14:36 140 H 15 84/64 100 10/28/21 14:34 131 H 18 84/64 100 10/28/21 14:33 121 H 16 84/64 100 10/28/21 14:32 151 H 17 111/44 100 10/28/21 14:30 139 H 19 111/44 100 10/28/21 14:28 118 H 22 111/44 100 10/28/21 14:26 121 H 19 111/44 100 10/28/21 14:24 134 H 17 111/44 100 10/28/21 14:22 138 H 18 111/44 99 10/28/21 14:20 127 H 19 111/44 99 10/28/21 14:18 125 H 18 111/44 100 10/28/21 14:16 120 H 19 111/44 99 10/28/21 14:14 123 H 17 111/44 100 10/28/21 14:12 118 H 18 111/44 100 10/28/21 14:10 129 H 20 111/44 100 10/28/21 14:08 130 H 18 111/44 98 10/28/21 14:06 138 H 18 111/44 98 10/28/21 14:04 132 H 17 111/44 100 10/28/21 14:02 136 H 20 111/44 98 10/28/21 14:00 132 H 18 85/62 99 10/28/21 13:58 120 H 19 85/62 99 10/28/21 13:56 128 H 19 85/62 99 10/28/21 13:54 121 H 17 85/62 99 10/28/21 13:52 141 H 17 85/62 100 10/28/21 13:50 107 H 17 85/62 99 10/28/21 13:48 138 H 18 85/62 99 10/28/21 13:46 130 H 19 85/62 99 10/28/21 13:44 132 H 18 85/62 99 10/28/21 13:42 130 H 19 85/62 100 10/28/21 13:40 142 H 18 85/62 99 10/28/21 13:38 139 H 18 85/62 99 10/28/21 13:36 126 H 17 85/62 100 10/28/21 13:34 131 H 17 85/62 99 10/28/21 13:32 130 H 18 85/62 100 10/28/21 13:30 112 H 17 85/62 98 10/28/21 13:28 129 H 16 86/58 100 10/28/21 13:26 120 H 17 75/53 99 10/28/21 13:24 141 H 18 75/53 99 10/28/21 13:22 115 H 21 75/53 96 10/28/21 13:20 106 H 18 83/58 100 10/28/21 13:18 148 H 18 83/58 95 10/28/21 13:16 128 H 20 83/58 100 10/28/21 13:14 124 H 19 83/58 97 10/28/21 13:12 139 H 20 83/58 98 10/28/21 13:10 140 H 19 83/58 100 10/28/21 13:08 139 H 21 83/58 100 10/28/21 13:06 139 H 19 83/58 99 10/28/21 13:04 132 H 19 83/58 99 10/28/21 13:02 141 H 19 83/58 99 10/28/21 13:00 120 H 117 H 17 86/58 98 10/28/21 12:58 135 H 19 86/58 99 10/28/21 12:56 109 H 19 86/58 98 - Physical Examination General: Appears Well, No Apparent Distress HEENT: Positive: PERRL Neck: Positive: neck supple Cardiac: Positive: irregularly irregular Lungs: Positive: Decreased Breath Sounds Neuro: Positive: Grossly Intact Abdomen: Positive: Soft Skin: Positive: Clear Extremities: Present: +1 Edema - Labs and Meds Cardiac Enzymes 10/28/21 Range/Units 15:04 AST 166 H (5-40) units/L CBC 10/29/21 Range/Units 05:15 WBC 8.2 (4.5-11.0) K/mm3 RBC 4.81 (3.65-5.03) M/mm3 Hgb 12.4 (10.1-14.3) gm/dl Hct 39.3 (30.3-42.9) % Plt Count 247 (140-440) K/mm3 Comprehensive Metabolic Panel 10/28/21 Range/Units 15:04 Sodium 135 L (137-145) mmol/L Potassium 3.7 D (3.6-5.0) mmol/L Chloride 100.5 (98-107) mmol/L Carbon Dioxide 22 D (22-30) mmol/L BUN 59 H (7-17) mg/dL Creatinine 1.4 H (0.6-1.2) mg/dL Glucose 156 H (65-100) mg/dL Calcium 8.2 L (8.4-10.2) mg/dL AST 166 H (5-40) units/L ALT 217 H (7-56) units/L Alkaline Phosphatase 96 (35-129) units/L Total Protein 5.7 L (6.3-8.2) g/dL Albumin 3.3 L (3.9-5) g/dL - Imaging and Cardiology EKG: report reviewed (Christiana webb with RVR)
[2021-10-29 15:36] LABS: BUN/Creatinine Ratio 40; Blood Urea Nitrogen 40 mg/dL (7-17); Calcium 8.5 mg/dL (8.4-10.2); Hemolysis Index 0
[2021-10-29] MEDS: DIGOXIN 0.25 MG TAB PO SCH (17:10)
[2021-10-29] MEDS ORDERED: MAGNESIUM SULFATE 2 GM/50 ML BAG IV ONE (17:26)
[2021-10-29] MEDS: POTASSIUM CHLORIDE ER 20 MEQ TAB PO SCH (18:28)
--- NOTE | 2021-10-30 10:25 | Progress Note ---
Assessment and Plan - Patient Problems (1) Acute systolic CHF (congestive heart failure) Current Visit: No Status: Chronic Plan to address problem: Patient presents with shortness of breath, increased abdominal girth and lower extremity edema. Echocardiogram showed a severe four-chamber dilated cardiomyopathy representing a recurrence of the patient's history of nonischemic cardiomyopathy. With aggressive diuretics the abdominal distention is resolved, there is no further edema and shortness of breath is much improved. (2) Atrial fibrillation with RVR Current Visit: Yes Status: Acute Plan to address problem: Still has atrial fibrillation, with better rate control on beta-blockers and digitalis. Oral anticoagulation with Eliquis. Subjective Date of service: 10/30/21 Principal diagnosis: Rapid atrial fibrillation, acute systolic heart failure Interval history: Patient looks and feels better, abdominal distention is resolved, there is no further edema and shortness of breath is much improved. Objective Vital Signs Temp Pulse Pulse Resp BP Pulse Ox 10/30/21 08:00 98.3 F 138 H 18 101/85 100 10/30/21 03:49 97.9 F 55 L 20 124/74 97 10/30/21 00:22 97.7 F 43 L 19 98/77 98 10/29/21 23:00 130 H 10/29/21 22:00 134 H 16 100 10/29/21 21:22 143 H 123/81 10/29/21 20:21 98.4 F 53 L 19 123/81 97 10/29/21 19:00 126 H 10/29/21 17:15 18 113/66 98 10/29/21 17:10 132 H 113/66 10/29/21 17:00 153 H 20 97 10/29/21 16:50 125 H 18 /31 97 10/29/21 16:40 127 H 17 / 96 10/29/21 16:30 142 H 22 99 10/29/21 16:00 97.6 F 121 H 15 100 10/29/21 15:30 116 H 18 95/69 10/29/21 15:00 146 H 13 103/70 98 10/29/21 14:30 128 H 21 103/70 98 10/29/21 14:00 127 H 18 104/82 96 10/29/21 13:00 151 H 19 98/66 98 10/29/21 12:13 143 H 110/80 10/29/21 12:00 97.8 F 143 H 24 91/59 93 10/29/21 11:26 123 H 10/29/21 11:00 136 H 20 110/80 97 - Physical Examination General: Appears Well, No Apparent Distress HEENT: Positive: PERRL Neck: Positive: neck supple Cardiac: Positive: irregularly irregular Lungs: Positive: Decreased Breath Sounds Neuro: Positive: Grossly Intact Abdomen: Positive: Soft Skin: Positive: Clear Extremities: Present: +1 Edema - Labs and Meds Comprehensive Metabolic Panel 10/29/21 10/30/21 Range/Units 15:03 05:25 Sodium 136 L (137-145) mmol/L Potassium 3.5 L (3.6-5.0) mmol/L Chloride 99.1 (98-107) mmol/L Carbon Dioxide 26 (22-30) mmol/L BUN 40 H (7-17) mg/dL Creatinine 1.0 0.8 (0.6-1.2) mg/dL Glucose 106 H (65-100) mg/dL Calcium 8.5 (8.4-10.2) mg/dL - Imaging and Cardiology EKG: report reviewed (Christiana webb with RVR)
[2021-10-30 10:28] LABS: BUN/Creatinine Ratio 41; Blood Urea Nitrogen 33 mg/dL (7-17); Calcium 8.7 mg/dL (8.4-10.2); Hemolysis Index 5
[2021-10-30] MEDS: carvediloL 3.125 MG TAB PO SCH ×2 (11:53→21:22)
[2021-10-30] MEDS: AMIODARONE 200 MG TAB PO SCH ×2 (11:53→21:22)
[2021-10-30] MEDS: APIXABAN 5 MG TAB PO SCH ×2 (11:55→21:22)
[2021-10-30] MEDS: POTASSIUM CHLORIDE ER 20 MEQ TAB PO SCH (11:55)
[2021-10-30] MEDS: SPIRONOLACTONE 25 MG TAB PO SCH (11:56)
--- NOTE | 2021-10-30 12:29 | Progress Note ---
Assessment and Plan Assessment and plan: History of present illness: Patient is a 51-year-old female with history of CHF and hypertension sent from primary care office for evaluation of A. fib with RVR. She denies past history of arrhythmia. Denies shortness of breath or chest pain. Has been palpitations no diaphoresis. No exacerbating or relieving factors. No orthopnea. Hospital Course: 10/27: Severe dilated cardiomyopathy with EF 15%. Started on IV milrinone and IV diuretics. Abd US ordered to evaluate abdominal ascites. Patient to continue amiodorone IV for afib tx. 10/28: Milrinone held this AM. HR remains elevated in 100-110's. Continuing amiodorone IV and digoxin. Ordered digoxin level. Will be important to track this in light of renal insufficiency. 10/29: Heart rate under better control. Milrinone discontinued. Continue rate/control with amiodarone, metoprolol and digoxin. Digoxin level 0.6. Renal function stable, recent creatinine 1.4. Continued Aggressive diuresis. Can downgrade to telemetry floor. Possible discharge in next 24 to 48 hours. 10/30: HR fluctuating from 60-130's. Ventricular rate still not controlled. Will follow cardiology recommendations. Plan for d/c tomorrow. Assessment and Plan: #Atrial fibrillation with rapid ventricular response -c/o palpitations. - ekg: afib rvr, ventricular rate: 178 bpm in ER - new onset. -Discontinue amiodorone IV. Amiodarone 200 mg p.o. twice daily started. Milrinone discontinued - started on meteprolol, digoxin for rate control. -check digoxin level - started apixiaban for AC, chads > 2. -cardiology consultation #Acute systolic heart failure -ECHO shows dilated CMP, EF 15%. - IV diuretics: Lasix 40 mg IV twice daily. - GDMT: metoprolol, aldactone, lasix 40 IV bid -cardiology following #Acute kidney injury (resolved) - 0.9 on admission, inc to 1.4, now 0.8 - hold francisca-i -avoid nephrotoxic agents #Hyperkalemia - K=5.1 - d/c K supplement at this time. #Hypertension - metoprolol only for now - patient hypotensive overnight #Morbid Obesity - BMI - Counseled patient on the importance of weight loss, incorporating exercise, and dietary changes (lean meats, fresh fruits and vegetables, and water intake). Patient expresses understanding. - Time: +15 min #Preventative health care - preventative health counseling regarding management of life stressors, medic ation compliance and overall effect of chronic medical conditions on overall health. Encourage patient to follow up closely with with OP providers +30 minutes. The high probability of a clinically significant, sudden or life threatening deterioration of the [multi] system(s) required my full and direct attention, intervention and personal management. The aggregate critical care time was [60] minutes. This time is in addition to time spent performing reported procedures but includes the following: [x] Data Review and interpretation [x] Patient assessment and monitoring of vital signs [x] Documentation [x] Medication orders and management History Interval history: NO acute complaints .Denies palpitations. Hospitalist Physical - Physical exam Narrative exam: Physical Exam: VITAL SIGNS: Reviewed. GENERAL: The patient appears normally developed, Vital signs as documented. NAD HEAD: No signs of head trauma. EYES: Pupils are equal. Extraocular motions intact. EARS: Hearing grossly intact. MOUTH: Oropharynx is normal. NECK: No adenopathy, no JVD. CHEST: Chest with clear breath sounds bilaterally. No wheezes, rales, or rhonchi. CARDIAC: tachycardia, irregular rhythm. S1 and S2, without murmurs, gallops, or rubs. VASCULAR: No Edema. Peripheral pulses normal and equal in all extremities. ABDOMEN: Soft, non tender and non distended. No rebound or guarding, and no masses palpated. Bowel Sounds normal. MUSCULOSKELETAL: Good range of motion of all major joints. Extremities without clubbing, cyanosis or edema. NEUROLOGIC EXAM: Alert and oriented x 4. no focal sensory or strength deficits. PSYCHIATRIC: Mood normal. SKIN: detail exam as documented in skin assessment - Constitutional Vitals: Temp Pulse Resp BP Pulse Ox 98.3 F 138 H 18 101/85 100 10/30/21 08:00 10/30/21 10:00 10/30/21 08:00 10/30/21 08:00 10/30/21 10:00 General appearance: Present: no acute distress, well-nourished HEART Score - HEART Score EKG: Non-specific Risk factors: 1-2 risk factors Troponin: 1-3x normal limit - Critical Actions Critical Actions: 4-6 pts:12-16.6% risk of adverse cardiac event. Should be ad mitted Results - Labs CBC & Chem 7: 10/29/21 05:15 10/30/21 05:52 Labs: Laboratory Last Values WBC 8.2 K/mm3 (4.5-11.0) 10/29/21 05:15 RBC 4.81 M/mm3 (3.65-5.03) 10/29/21 05:15 Hgb 12.4 gm/dl (10.1-14.3) 10/29/21 05:15 Hct 39.3 % (30.3-42.9) 10/29/21 05:15 MCV 82 fl (79-97) 10/29/21 05:15 MCH 26 pg (28-32) L 10/29/21 05:15 MCHC 32 % (30-34) 10/29/21 05:15 RDW 18.9 % (13.2-15.2) H 10/29/21 05:15 Plt Count 247 K/mm3 (140-440) 10/29/21 05:15 Lymph % (Auto) 16.0 % (13.4-35.0) 10/27/21 04:33 Warren % (Auto) 5.8 % (0.0-7.3) 10/27/21 04:33 Eos % (Auto) 0.0 % (0.0-4.3) 10/27/21 04:33 Baso % (Auto) 0.1 % (0.0-1.8) 10/27/21 04:33 Lymph # (Auto) 1.8 K/mm3 (1.2-5.4) 10/27/21 04:33 Warren # (Auto) 0.7 K/mm3 (0.0-0.8) 10/27/21 04:33 Eos # (Auto) 0.0 K/mm3 (0.0-0.4) 10/27/21 04:33 Baso # (Auto) 0.0 K/mm3 (0.0-0.1) 10/27/21 04:33 Seg Neutrophils % 78.1 % (40.0-70.0) H 10/27/21 04:33 Seg Neutrophils # 9.0 K/mm3 (1.8-7.7) H 10/27/21 04:33 Sodium 135 mmol/L (137-145) L 10/30/21 05:52 Potassium 3.8 mmol/L (3.6-5.0) 10/30/21 05:52 Chloride 97.7 mmol/L (98-107) L 10/30/21 05:52 Carbon Dioxide 25 mmol/L (22-30) 10/30/21 05:52 Anion Gap 16 mmol/L 10/30/21 05:52 BUN 33 mg/dL (7-17) H 10/30/21 05:52 Creatinine 0.8 mg/dL (0.6-1.2) 10/30/21 05:52 Estimated GFR > 60 ml/min 10/30/21 05:52 BUN/Creatinine Ratio 41 % 10/30/21 05:52 Glucose 106 mg/dL (65-100) H 10/30/21 05:52 POC Glucose 127 mg/dL (70-105) H 10/27/21 09:57 Calcium 8.7 mg/dL (8.4-10.2) 10/30/21 05:52 Phosphorus 3.50 mg/dL (2.5-4.5) 10/29/21 15:03 Magnesium 1.80 mg/dL (1.7-2.3) 10/29/21 15:03 Total Bilirubin 0.80 mg/dL (0.1-1.2) 10/28/21 15:04 AST 166 units/L (5-40) H 10/28/21 15:04 ALT 217 units/L (7-56) H 10/28/21 15:04 Alkaline Phosphatase 96 units/L (35-129) 10/28/21 15:04 Total Protein 5.7 g/dL (6.3-8.2) L 10/28/21 15:04 Albumin 3.3 g/dL (3.9-5) L 10/28/21 15:04 Albumin/Globulin Ratio 1.4 % 10/28/21 15:04 Digoxin 0.6 ng/mL (0.9-2.0) L 10/28/21 15:04 Mcmahon/IV: Voiding Method External Female Catheter Active Medications - Current Medications Current Medications: Generic Name Dose Route Start Last Admin Trade Name Freq PRN Reason Stop Dose Admin Acetaminophen 650 mg 10/26/21 20:57 Acetaminophen 325 Mg Tab PO Q4H PRN Pain MILD(1-3)/Fever >100.5/ROGERS Albuterol 2.5 mg 10/26/21 21:07 Albuterol 2.5 Mg/3 Ml Nebu IH Q4HRT PRN Wheezing/SOB Amiodarone HCl 200 mg 10/28/21 11:00 10/30/21 11:53 Amiodarone 200 Mg Tab PO 200 mg BID HENNY Administration Apixaban 5 mg 10/27/21 15:00 10/30/21 11:55 Apixaban 5 Mg Tab PO 5 mg Q12HR HENNY Administration Protocol Carvedilol 3.125 mg 10/27/21 22:00 10/30/21 11:53 Carvedilol 3.125 Mg Tab PO 3.125 mg BID HENNY Administration Digoxin 0.25 mg 10/28/21 17:00 10/29/21 17:10 Digoxin 0.25 Mg Tab PO 0.25 mg DAILY@1700 HENNY Administration Furosemide 40 mg 10/27/21 18:00 10/29/21 17:11 Furosemide 40 Mg/4 Ml Inj IV 40 mg 0600,1800 HENNY Administration Metoclopramide HCl 10 mg 10/26/21 20:57 Metoclopramide 10 Mg/2 Ml Inj IV Q6H PRN Nausea And Vomiting Metoprolol Tartrate 2.5 mg 10/28/21 13:55 10/29/21 08:08 Metoprolol Tartrate 5 Mg/5 Ml Inj IV 2.5 mg Q6HR PRN Administration Blood Pressure Morphine Sulfate 2 mg 10/26/21 20:57 Morphine 2 Mg/1 Ml Inj IV Q4H PRN Pain, Moderate (4-6) Ondansetron HCl 4 mg 10/26/21 20:57 10/28/21 17:22 Ondansetron 4 Mg/2 Ml Inj IV 4 mg Q3H PRN Administration Nausea And Vomiting Oxycodone/Acetaminophen 1 tab 10/26/21 20:57 Oxycodone /Acetaminophen 5-325mg Tab PO Q6H PRN Pain, Moderate (4-6) Potassium Chloride 40 meq 10/29/21 18:00 10/30/21 11:55 Potassium Chloride Er 20 Meq Tab PO 40 meq QDAY HENNY Administration Sodium Chloride 10 ml 10/26/21 22:00 10/29/21 09:50 Sodium Chloride 0.9% 10 Ml Flush Syringe IV 10 ml BID HENNY Administration Sodium Chloride 10 ml 10/26/21 20:57 Sodium Chloride 0.9% 10 Ml Flush Syringe IV PRN PRN LINE FLUSH Spironolactone 25 mg 10/27/21 11:00 10/30/21 11:56 Spironolactone 25 Mg Tab PO 25 mg QDAY HENNY Administration
--- NOTE | 2021-10-30 13:12 | Progress Note ---
Assessment and Plan 51 y/o, obese female admitted with dyspnea, afib and found to be in acute systolic heart failure exacerbation. 10/30/21: Pulm status stable to continuing to improve. Will see as needed. Will discuss with cards about rate control outside of amio. Still on Dig, but still not controlled. 1. RAte control 2. Anticoagulation 3. HF therapy 4. Trend LFT's 5. Cards had suggested abdominal ultrasound but with EF being 15 will cancel Guarded prognosis. CCT 31 minutes. Subjective Date of service: 10/30/21 Principal diagnosis: Rapid atrial fibrillation, acute systolic heart failure Interval history: Successful transfer to tele floor. Rate still not controlled Objective - Constitutional Vitals: Vital Signs - 12hr 10/30/21 10/30/21 10/30/21 03:49 08:00 10:00 Temperature 97.9 F 98.3 F Pulse Rate 55 L 138 H Pulse Rate [ 138 H From Monitor] Respiratory 20 18 Rate Blood Pressure 124/74 101/85 O2 Sat by Pulse 97 100 100 Oximetry - Labs CBC & Chem 7: 10/29/21 05:15 10/30/21 05:52 Labs: Abnormal lab results 10/29/21 10/30/21 Range/Units 15:03 05:52 Sodium 136 L 135 L (137-145) mmol/L Potassium 3.5 L (3.6-5.0) mmol/L Chloride 97.7 L (98-107) mmol/L BUN 40 H 33 H (7-17) mg/dL Glucose 106 H 106 H (65-100) mg/dL Medications & Allergies - Medications Allergies/Adverse Reactions: Allergies No Known Allergies Allergy (Verified 10/26/21 10:54) Home Medications: Home Medications Medication Instructions Recorded Confirmed Last Taken Type Furosemide [Lasix] 40 mg PO DAILY #30 tablet 07/10/13 10/27/21 Unknown Rx carvediloL [Coreg] 6.25 mg PO BID #60 tablet 07/10/13 Unknown Rx lisinopriL [Zestril TAB] 2.5 mg PO QDAY #30 tablet 07/10/13 Unknown Rx Albuterol Sulfate [Proventil Hfa] 1 puff IH TID PRN #1 hfa.[id number].ad 08/10/20 Unknown Rx Furosemide [Lasix] 20 mg PO QDAY #30 tablet 07/05/21 Unknown Rx Potassium Chloride [K-Dur] 20 meq PO QDAY #30 tab 07/05/21 10/27/21 Unknown Rx Active Medications: Generic Name Dose Route Start Last Admin Trade Name Freq PRN Reason Stop Dose Admin Acetaminophen 650 mg 10/26/21 20:57 Acetaminophen 325 Mg Tab PO Q4H PRN Pain MILD(1-3)/Fever >100.5/ROGERS Albuterol 2.5 mg 10/26/21 21:07 Albuterol 2.5 Mg/3 Ml Nebu IH Q4HRT PRN Wheezing/SOB Amiodarone HCl 200 mg 10/28/21 11:00 10/30/21 11:53 Amiodarone 200 Mg Tab PO 200 mg BID HENNY Administration Apixaban 5 mg 10/27/21 15:00 10/30/21 11:55 Apixaban 5 Mg Tab PO 5 mg Q12HR HENNY Administration Protocol Carvedilol 3.125 mg 10/27/21 22:00 10/30/21 11:53 Carvedilol 3.125 Mg Tab PO 3.125 mg BID HENNY Administration Digoxin 0.25 mg 10/28/21 17:00 10/29/21 17:10 Digoxin 0.25 Mg Tab PO 0.25 mg DAILY@1700 HENNY Administration Furosemide 40 mg 10/27/21 18:00 10/29/21 17:11 Furosemide 40 Mg/4 Ml Inj IV 40 mg 0600,1800 HENNY Administration Metoclopramide HCl 10 mg 10/26/21 20:57 Metoclopramide 10 Mg/2 Ml Inj IV Q6H PRN Nausea And Vomiting Metoprolol Tartrate 2.5 mg 10/28/21 13:55 10/29/21 08:08 Metoprolol Tartrate 5 Mg/5 Ml Inj IV 2.5 mg Q6HR PRN Administration Blood Pressure Morphine Sulfate 2 mg 10/26/21 20:57 Morphine 2 Mg/1 Ml Inj IV Q4H PRN Pain, Moderate (4-6) Ondansetron HCl 4 mg 10/26/21 20:57 10/28/21 17:22 Ondansetron 4 Mg/2 Ml Inj IV 4 mg Q3H PRN Administration Nausea And Vomiting Oxycodone/Acetaminophen 1 tab 10/26/21 20:57 Oxycodone /Acetaminophen 5-325mg Tab PO Q6H PRN Pain, Moderate (4-6) Potassium Chloride 40 meq 10/29/21 18:00 10/30/21 11:55 Potassium Chloride Er 20 Meq Tab PO 40 meq QDAY HENNY Administration Sodium Chloride 10 ml 10/26/21 22:00 10/29/21 09:50 Sodium Chloride 0.9% 10 Ml Flush Syringe IV 10 ml BID HENNY Administration Sodium Chloride 10 ml 10/26/21 20:57 Sodium Chloride 0.9% 10 Ml Flush Syringe IV PRN PRN LINE FLUSH Spironolactone 25 mg 10/27/21 11:00 10/30/21 11:56 Spironolactone 25 Mg Tab PO 25 mg QDAY HENNY Administration HEART Score - HEART Score EKG: Non-specific Risk factors: 1-2 risk factors Troponin: 1-3x normal limit - Critical Actions Critical Actions: 4-6 pts:12-16.6% risk of adverse cardiac event. Should be admitted
[2021-10-30] MEDS: DIGOXIN 0.25 MG TAB PO SCH (18:03)
[2021-10-30] MEDS: FUROSEMIDE 40 MG/4 ML INJ IV SCH ×2 (19:05→19:39)
[2021-10-31] MEDS: FUROSEMIDE 40 MG/4 ML INJ IV SCH ×2 (05:03→17:41)
[2021-10-31 05:22] LABS: Hematocrit 38.3 % (30.3-42.9); Hemoglobin 12.2 gm/dl (10.1-14.3); Mean Corpuscular HGB Conc 32 % (30-34); Mean Corpuscular Volume 82 fl (79-97); Platelet Count 236 K/mm3 (140-440); Red Blood Count 4.64 M/mm3 (3.65-5.03); Red Cell Distribution Width 19.6 % (13.2-15.2)
[2021-10-31] MEDS: carvediloL 3.125 MG TAB PO SCH (10:05)
[2021-10-31] MEDS: AMIODARONE 200 MG TAB PO SCH ×2 (10:05→21:52)
[2021-10-31] MEDS: POTASSIUM CHLORIDE ER 20 MEQ TAB PO SCH (10:05)
[2021-10-31] MEDS: APIXABAN 5 MG TAB PO SCH ×2 (10:05→21:51)
[2021-10-31] MEDS: SPIRONOLACTONE 25 MG TAB PO SCH (12:32)
--- NOTE | 2021-10-31 13:34 | Progress Note ---
Assessment and Plan - Patient Problems (1) Acute systolic CHF (congestive heart failure) Current Visit: No Status: Chronic Plan to address problem: Patient presents with shortness of breath, increased abdominal girth and lower extremity edema. Echocardiogram showed a severe four-chamber dilated cardiomyopathy representing a recurrence of the patient's history of nonischemic cardiomyopathy. With aggressive diuretics the abdominal distention is resolved, there is no further edema and shortness of breath is much improved. (2) Atrial fibrillation with RVR Current Visit: Yes Status: Acute Plan to address problem: Still has atrial fibrillation, increase beta-lillie for rate control, continue digitalis. Oral anticoagulation with Eliquis. Subjective Date of service: 10/31/21 Principal diagnosis: Rapid atrial fibrillation, acute systolic heart failure Interval history: Patient is comfortable no acute distress, states that she is feeling much better. She remains in atrial fibrillation, with somewhat suboptimal rate control in the 120s. Objective Vital Signs Temp Pulse Pulse Resp BP Pulse Ox 10/31/21 12:32 110 H 111/88 10/31/21 12:16 115/88 10/31/21 12:10 98.3 F 54 L 85/66 99 10/31/21 10:05 110 H 111/88 10/31/21 10:00 147 H 100 10/31/21 08:32 97.3 F L 148 H 111/88 99 10/31/21 05:07 98.4 F 56 L 18 121/82 99 10/30/21 23:55 97.7 F 44 L 18 119/94 100 10/30/21 22:31 147 H 10/30/21 22:00 142 H 18 100 10/30/21 19:08 97.7 F 54 L 18 113/86 98 10/30/21 15:43 98.0 F 53 L 18 102/83 100 - Physical Examination General: Appears Well, No Apparent Distress HEENT: Positive: PERRL Neck: Positive: neck supple Cardiac: Positive: irregularly irregular Lungs: Positive: Decreased Breath Sounds Neuro: Positive: Grossly Intact Abdomen: Positive: Soft Skin: Positive: Clear Extremities: Present: +1 Edema - Labs and Meds CBC 10/31/21 Range/Units 04:38 WBC 7.9 (4.5-11.0) K/mm3 RBC 4.64 (3.65-5.03) M/mm3 Hgb 12.2 (10.1-14.3) gm/dl Hct 38.3 (30.3-42.9) % Plt Count 236 (140-440) K/mm3 - Imaging and Cardiology EKG: report reviewed (Christiana webb with RVR)
--- NOTE | 2021-10-31 13:57 | Progress Note ---
Assessment and Plan Assessment and plan: Patient is a 51-year-old female with history of CHF and hypertension sent from primary care office for evaluation of A. fib with RVR. She denies past history of arrhythmia. Denies shortness of breath or chest pain. Has been palpitations no diaphoresis. No exacerbating or relieving factors. No orthopnea. Hospital Course: 10/27: Severe dilated cardiomyopathy with EF 15%. Started on IV milrinone and IV diuretics. Abd US ordered to evaluate abdominal ascites. Patient to continue amiodorone IV for afib tx. 10/28: Milrinone held this AM. HR remains elevated in 100-110's. Continuing amiodorone IV and digoxin. Ordered digoxin level. Will be important to track this in light of renal insufficiency. 10/29: Heart rate under better control. Milrinone discontinued. Continue rat e/control with amiodarone, metoprolol and digoxin. Digoxin level 0.6. Renal function stable, recent creatinine 1.4. Continued Aggressive diuresis. Can downgrade to telemetry floor. Possible discharge in next 24 to 48 hours. 10/30: HR fluctuating from 60-130's. Ventricular rate still not controlled. Will follow cardiology recommendations. 10/31: HR continues to fluctuate. Medications adjusted per Cardiology, plan for discharge in the next 24-48hrs. Assessment and Plan: #Atrial fibrillation with rapid ventricular response, new onset -continue amiodarone, meteprolol, and digoxin for rate control -continue telemetry Milrinone discontinued -continue apixiaban for AC -Cardiology following, assistance appreciated #Acute systolic heart failure, improving #severe dilated cardiomyopathy -TTE shows dilated CMP, EF 15%. -IV diuretics: Lasix 40 mg IV twice daily, s/p milrinone -GDMT: metoprolol, aldactone, lasix 40 IV bid #Acute kidney injury (resolved) -0.9 on admission, inc to 1.4, now 0.8 -likely secondary to CHF exacerbation -ACEi held -avoid nephrotoxic agents and renally adjust medications #Hypertension, controlled -continue metoprolol for now, patient with borderline BP #Hyperkalemia- resolved -will continue to monitor via BMP #Morbid Obesity - BMI - Counseled patient on the importance of weight loss, incorporating exercise, and dietary changes (lean meats, fresh fruits and vegetables, and water intake). Patient expresses understanding. - Time: +15 min #Advanced care planning -Disease education conducted, care plan discussed, diagnoses discussed, prognosis discussed, and patient acknowledges understanding with care plan -Time: +30 min History Interval history: No acute events overnight. Patient denies lightheadedness, dizziness, chest pain or palpitations. Patient is eager to go home, we discussed need for better rate control prior to discharge. Hospitalist Physical - Physical exam Narrative exam: GENERAL: Well-developed well-nourished. In no acute distress. HEENT: Normocephalic. Atraumatic. NECK: Supple. CHEST/LUNGS: CTAB on room air HEART/CARDIOVASCULAR: Irregularly irregular rhythm. No murmur, rubs or gallops appreciated. ABDOMEN: +BS. NT/ND. SKIN: No rashes noted. NEURO: No focal motor deficit. Follows all commands. MUSCULOSKELETAL: No joint effusion EXTREMITIES: No cyanosis, clubbing or edema. PSYCH: Cooperative. - Constitutional Vitals: Temp Pulse Resp BP Pulse Ox 98.3 F 110 H 18 111/88 99 10/31/21 12:10 10/31/21 12:32 10/31/21 05:07 10/31/21 12:32 10/31/21 12:10 General appearance: Present: no acute distress, well-nourished HEART Score - HEART Score EKG: Non-specific Risk factors: 1-2 risk factors Troponin: 1-3x normal limit - Critical Actions Critical Actions: 4-6 pts:12-16.6% risk of adverse cardiac event. Should be admitted Results - Labs CBC & Chem 7: 10/31/21 04:38 10/30/21 05:52 Labs: Laboratory Last Values WBC 7.9 K/mm3 (4.5-11.0) 10/31/21 04:38 RBC 4.64 M/mm3 (3.65-5.03) 10/31/21 04:38 Hgb 12.2 gm/dl (10.1-14.3) 10/31/21 04:38 Hct 38.3 % (30.3-42.9) 10/31/21 04:38 MCV 82 fl (79-97) 10/31/21 04:38 MCH 26 pg (28-32) L 10/31/21 04:38 MCHC 32 % (30-34) 10/31/21 04:38 RDW 19.6 % (13.2-15.2) H 10/31/21 04:38 Plt Count 236 K/mm3 (140-440) 10/31/21 04:38 Lymph % (Auto) 16.0 % (13.4-35.0) 10/27/21 04:33 [place] % (Auto) 5.8 % (0.0-7.3) 10/27/21 04:33 Eos % (Auto) 0.0 % (0.0-4.3) 10/27/21 04:33 Baso % (Auto) 0.1 % (0.0-1.8) 10/27/21 04:33 Lymph # (Auto) 1.8 K/mm3 (1.2-5.4) 10/27/21 04:33 [place] # (Auto) 0.7 K/mm3 (0.0-0.8) 10/27/21 04:33 Eos # (Auto) 0.0 K/mm3 (0.0-0.4) 10/27/21 04:33 Baso # (Auto) 0.0 K/mm3 (0.0-0.1) 10/27/21 04:33 Seg Neutrophils % 78.1 % (40.0-70.0) H 10/27/21 04:33 Seg Neutrophils # 9.0 K/mm3 (1.8-7.7) H 10/27/21 04:33 Sodium 135 mmol/L (137-145) L 10/30/21 05:52 Potassium 3.8 mmol/L (3.6-5.0) 10/30/21 05:52 Chloride 97.7 mmol/L (98-107) L 10/30/21 05:52 Carbon Dioxide 25 mmol/L (22-30) 10/30/21 05:52 Anion Gap 16 mmol/L 10/30/21 05:52 BUN 33 mg/dL (7-17) H 10/30/21 05:52 Creatinine 0.8 mg/dL (0.6-1.2) 10/30/21 05:52 Estimated GFR > 60 ml/min 10/30/21 05:52 BUN/Creatinine Ratio 41 % 10/30/21 05:52 Glucose 106 mg/dL (65-100) H 10/30/21 05:52 POC Glucose 127 mg/dL (70-105) H 10/27/21 09:57 Calcium 8.7 mg/dL (8.4-10.2) 10/30/21 05:52 Phosphorus 3.50 mg/dL (2.5-4.5) 10/29/21 15:03 Magnesium 1.80 mg/dL (1.7-2.3) 10/29/21 15:03 Total Bilirubin 0.80 mg/dL (0.1-1.2) 10/28/21 15:04 AST 166 units/L (5-40) H 10/28/21 15:04 ALT 217 units/L (7-56) H 10/28/21 15:04 Alkaline Phosphatase 96 units/L (35-129) 10/28/21 15:04 Total Protein 5.7 g/dL (6.3-8.2) L 10/28/21 15:04 Albumin 3.3 g/dL (3.9-5) L 10/28/21 15:04 Albumin/Globulin Ratio 1.4 % 10/28/21 15:04 Digoxin 0.6 ng/mL (0.9-2.0) L 10/28/21 15:04 Mcmahon/IV: Voiding Method Toilet Active Medications - Current Medications Current Medications: Generic Name Dose Route Start Last Admin Trade Name Freq PRN Reason Stop Dose Admin Acetaminophen 650 mg 10/26/21 20:57 Acetaminophen 325 Mg Tab PO Q4H PRN Pain MILD(1-3)/Fever >100.5/ROGERS Albuterol 2.5 mg 10/26/21 21:07 Albuterol 2.5 Mg/3 Ml Nebu IH Q4HRT PRN Wheezing/SOB Amiodarone HCl 200 mg 10/28/21 11:00 10/31/21 10:05 Amiodarone 200 Mg Tab PO 200 mg BID HENNY Administration Apixaban 5 mg 10/27/21 15:00 10/31/21 10:05 Apixaban 5 Mg Tab PO 5 mg Q12HR HENNY Administration Protocol Digoxin 0.25 mg 10/28/21 17:00 10/30/21 18:03 Digoxin 0.25 Mg Tab PO 0.25 mg DAILY@1700 HENNY Administration Furosemide 40 mg 10/27/21 18:00 10/31/21 05:03 Furosemide 40 Mg/4 Ml Inj IV 40 mg 0600,1800 HENNY Administration Metoclopramide HCl 10 mg 10/26/21 20:57 Metoclopramide 10 Mg/2 Ml Inj IV Q6H PRN Nausea And Vomiting Metoprolol Tartrate 2.5 mg 10/28/21 13:55 10/29/21 08:08 Metoprolol Tartrate 5 Mg/5 Ml Inj IV 2.5 mg Q6HR PRN Administration Blood Pressure Metoprolol Tartrate 50 mg 10/31/21 14:00 Metoprolol Tartrate 50 Mg Tab PO Q8H HENNY Morphine Sulfate 2 mg 10/26/21 20:57 Morphine 2 Mg/1 Ml Inj IV Q4H PRN Pain, Moderate (4-6) Ondansetron HCl 4 mg 10/26/21 20:57 10/28/21 17:22 Ondansetron 4 Mg/2 Ml Inj IV 4 mg Q3H PRN Administration Nausea And Vomiting Oxycodone/Acetaminophen 1 tab 10/26/21 20:57 Oxycodone /Acetaminophen 5-325mg Tab PO Q6H PRN Pain, Moderate (4-6) Potassium Chloride 40 meq 10/29/21 18:00 10/31/21 10:05 Potassium Chloride Er 20 Meq Tab PO 40 meq QDAY HENNY Administration Sodium Chloride 10 ml 10/26/21 22:00 10/30/21 21:22 Sodium Chloride 0.9% 10 Ml Flush Syringe IV 10 ml BID HENNY Administration Sodium Chloride 10 ml 10/26/21 20:57 Sodium Chloride 0.9% 10 Ml Flush Syringe IV PRN PRN LINE FLUSH Spironolactone 25 mg 10/27/21 11:00 10/31/21 12:32 Spironolactone 25 Mg Tab PO 25 mg QDAY HENNY Administration
[2021-10-31] MEDS: DIGOXIN 0.25 MG TAB PO SCH (17:37)
[2021-10-31] MEDS: METOPROLOL TARTRATE 50 MG TAB PO SCH ×2 (17:39→22:20)
[2021-11-01] MEDS: FUROSEMIDE 40 MG/4 ML INJ IV SCH (05:39)
[2021-11-01] MEDS: METOPROLOL TARTRATE 50 MG TAB PO SCH ×2 (05:39→06:43)
[2021-11-01 10:00] LABS: Alanine Aminotransferase 83 units/L (7-56); Albumin 3.5 g/dL (3.9-5); BUN/Creatinine Ratio 25; Blood Urea Nitrogen 20 mg/dL (7-17); Calcium 8.2 mg/dL (8.4-10.2); Hemolysis Index 11
--- NOTE | 2021-11-01 11:35 | Discharge Summary ---
Providers - Providers Date of Admission: 10/26/21 20:57 Date of discharge: 11/01/21 Attending physician: MEENAKSHI BATRES MD 10/26/21 20:57 Consult to Physician [CONS] Routine Comment: Consulting Provider: KOREY SANDOVAL Physician Instructions: Reason For Exam: a fib with rvr 10/26/21 22:06 Consult to Physician [CONS] Routine Comment: Consulting Provider: MARY ZHU Physician Instructions: Reason For Exam: A. fib with RVR Primary care physician: ARISTIDES PEDERSEN Hospitalization Reason for admission: Atrial fibrillation and CHF exacerbation Condition: Stable Hospital course: 51-year-old female with history of systolic heart failure and hypertension who presented from her primary care office with atrial fibrillation with RVR. Cardiology was consulted patient was started on milrinone and amiodarone. Echocardiogram showed ejection fraction of 15% and mild to moderate pulmonary hypertension. Eventually her heart rate was controlled and she was started on apixaban for anticoagulation. She had a bump in her creatinine to 1.4 which resolved. Once clinically stable, patient was discharged home. Disposition: 01 HOME / SELF CARE / HOMELESS Final Discharge Diagnosis (Prints w/discharge instructions): Atrial fibrillation with rapid ventricular response, new onset. Acute on chronic systolic heart failure. Severe dilated cardiomyopathy. Acute kidney injury secondary to vasomotor nephropathy. Hypertension. Morbid obesity Time spent for discharge: 40 minutes Core Measure Documentation - Palliative Care Palliative Care/ Comfort Measures: Not Applicable - Core Measures Any of the following diagnoses?: heart failure - Heart Failure Discharge Requirements JONATHAN/ARB for LVSD if EF <40%: Yes Beta lillie at discharge: Yes Exam - Physical Exam Narrative exam: GENERAL: Well-developed well-nourished. In no acute distress. HEENT: Normocephalic. Atraumatic. CHEST/LUNGS: CTAB on room air HEART/CARDIOVASCULAR: Irregularly irregular rhythm. No murmur, rubs or gallops appreciated. ABDOMEN: +BS. NT/ND. NEURO: No focal motor deficit. Follows all commands. MUSCULOSKELETAL: No joint effusion EXTREMITIES: No cyanosis, clubbing or edema. PSYCH: Cooperative. - Constitutional Vitals: Temp Pulse Resp BP Pulse Ox 98.4 F 142 H 18 110/77 100 11/01/21 08:43 11/01/21 10:00 11/01/21 10:00 11/01/21 08:43 11/01/21 10:00 Plan Care Plan Goals: Please follow with your primary care provider. Also make sure to take all medications as prescribed. Please schedule follow-up appointment with your gum dipper within the next 2 weeks. Bring a list of your updated medications. Follow up with: ARISTIDES PEDERSEN MD [Primary Care Provider] - 7 Days Forms: Work/School Release Form Prescriptions: Spironolactone [Aldactone] 25 mg PO QDAY 30 Days #30 tablet Amiodarone [Cordarone 200 MG TAB] 200 mg PO BID 30 Days #60 tablet Apixaban [Eliquis] 5 mg PO BID 30 Days #60 tab Apixaban [Eliquis] 5 mg PO Q12HR 30 Days #30 tablet Digoxin [Lanoxin] 0.25 mg PO DAILY@1700 30 Days #30 tablet Metoprolol [Lopressor TAB] 50 mg PO Q8H 30 Days #90 tablet lisinopriL [Zestril TAB] 2.5 mg PO QDAY 30 Days #15 tablet
[2021-11-01] MEDS: AMIODARONE 200 MG TAB PO SCH (11:41)
[2021-11-01] MEDS: POTASSIUM CHLORIDE ER 20 MEQ TAB PO SCH (11:41)
[2021-11-01] MEDS: APIXABAN 5 MG TAB PO SCH (11:42)
[2021-11-01] MEDS: SPIRONOLACTONE 25 MG TAB PO SCH (11:42)
[2021-11-01 11:55] VITALS: BP 102/76
--- NOTE | 2021-11-01 13:23 | Progress Note ---
Assessment and Plan - Patient Problems (1) Acute systolic CHF (congestive heart failure) Current Visit: No Status: Chronic Plan to address problem: Patient presents with shortness of breath, increased abdominal girth and lower extremity edema. Echocardiogram showed a severe four-chamber dilated cardiomyopathy representing a recurrence of the patient's history of nonischemic cardiomyopathy. With aggressive diuretics the abdominal distention is resolved, there is no further edema and shortness of breath is much improved. (2) Atrial fibrillation with RVR Current Visit: Yes Status: Acute Plan to address problem: Still has atrial fibrillation, increase beta-lillie for rate control, continue digitalis. Oral anticoagulation with Eliquis. Patient is stable for cardiac di scharge. Subjective Date of service: 11/01/21 Principal diagnosis: Rapid atrial fibrillation, acute systolic heart failure Interval history: Patient looks and feels better, wants to go home. Atrial fibrillation rate control is now optimal, in the 80s and 90s. Objective Vital Signs Temp Pulse Pulse Resp BP BP Pulse Ox 11/01/21 11:42 86 11/01/21 11:36 98.3 F 60 18 102/76 100 11/01/21 10:00 142 H 18 100 11/01/21 08:43 98.4 F 64 16 110/77 100 11/01/21 05:43 98.3 F 64 18 104/77 100 11/01/21 00:00 109 H 10/31/21 20:00 142 H 18 100 10/31/21 19:47 97.7 F 136 H 18 98/77 100 10/31/21 17:39 124 H 111/89 10/31/21 17:37 124 H 10/31/21 15:45 98.3 F 94 H 114/86 97 - Physical Examination General: Appears Well, No Apparent Distress HEENT: Positive: PERRL Neck: Positive: neck supple Cardiac: Positive: irregularly irregular Lungs: Positive: Decreased Breath Sounds Neuro: Positive: Grossly Intact Abdomen: Positive: Soft Skin: Positive: Clear Extremities: Present: edema (Trace) - Labs and Meds Cardiac Enzymes 11/01/21 Range/Units 09:25 AST 34 (5-40) units/L Comprehensive Metabolic Panel 11/01/21 Range/Units 09:25 Sodium 135 L (137-145) mmol/L Potassium 4.2 (3.6-5.0) mmol/L Chloride 96.7 L (98-107) mmol/L Carbon Dioxide 28 (22-30) mmol/L BUN 20 H (7-17) mg/dL Creatinine 0.8 (0.6-1.2) mg/dL Glucose 180 H (65-100) mg/dL Calcium 8.2 L (8.4-10.2) mg/dL AST 34 (5-40) units/L ALT 83 H (7-56) units/L Alkaline Phosphatase 90 (35-129) units/L Total Protein 5.7 L (6.3-8.2) g/dL Albumin 3.5 L (3.9-5) g/dL - Imaging and Cardiology EKG: report reviewed (Christiana webb with RVR)
== END 2021-11-01 16:05 | disposition home or self-care (01) | DRG 291 ==
LOC: ED 10:31 → 4A 20:57 → CC1 10-27 00:17 → 4A 10-29 17:25
PROVIDERS: ADMIT Internal Medicine; ATTEND Student in an Organized Health Care Education/Training Program
DX: I11.0 Hypertensive heart disease with heart failure (principal); I50.23 Acute on chronic systolic (congestive) heart failure; N17.0 Acute kidney failure with tubular necrosis; I48.91 Unspecified atrial fibrillation; I42.0 Dilated cardiomyopathy; E66.01 Morbid (severe) obesity due to excess calories; Z68.39 Body mass index [BMI] 39.0-39.9, adult; Z79.899 Other long term (current) drug therapy; Z82.49 Family history of ischemic heart disease and other diseases of the circulatory system; E87.5 Hyperkalemia
CPT/HCPCS: 36415; 71045; 80048; 80053; 80162; 82565; 82962; 83735; 84100; 85025; 85027; 93005; 93306; 94640; G0378; J3490; J7060; J7070; C8929; J0282; J1160; J1940; J2260; J2405; J3475; J7030; J7040